=== PATIENT | male | born 1990 | race African-American/Black ===

== ENCOUNTER 2018-07-12 13:56 | Outpatient (REF) | payer BC, SELFPAY ==
[2018-07-16 11:55] LABS: HIV-1/2 Ag & Ab Screen Negative (NEGAT)
[2018-07-16 12:21] LABS: C-Peptide 2.2 ng/mL (1.1 - 4.4)
[2018-07-16 12:35] LABS: Syphilis Serology (RPR) Negative (Negative)
[2018-07-16 13:53] LABS: HSV Type 1 Ab, IgG Negative; HSV Type 2 Ab, IgG Negative
== END 2018-07-12 14:16 ==
LOC: LBN 13:56
PROVIDERS: PCP Internal Medicine; Visit Provider Family Medicine
DX: E11.9 Type 2 diabetes mellitus without complications (principal); Z11.59 Encounter for screening for other viral diseases; Z11.3 Encounter for screening for infections with a predominantly sexual mode of transmission; Z11.4 Encounter for screening for human immunodeficiency virus [HIV]
CPT/HCPCS: 87389; 84681; 86592; 86695; 86696

== ENCOUNTER 2018-11-21 14:16 | Outpatient (REF) | payer BC, SELFPAY ==
[2018-11-22 10:34] LABS: COMMENT (LAB VIEW ONLY) 126.87 mg/dL
== END 2018-11-21 14:36 ==
LOC: LBN 14:16
PROVIDERS: PCP Internal Medicine; Visit Provider Internal Medicine
DX: E11.9 Type 2 diabetes mellitus without complications (principal)
CPT/HCPCS: 82043; 82570

== ENCOUNTER 2019-02-02 04:47 | Emergency (ER) | payer BC, SELFPAY ==
[2019-02-02] VITALS (23 sets, daily range): BP systolic 126–166; BP diastolic 73–128; PULSE 71–104; RESP 16–18; TEMP 36.8; O2SAT 92–98
--- NOTE | 2019-02-02 05:03 | W.ED.GENAD ---
Discharge Plan Disposition Patient Disposition: HOME Condition: Good Discharge Details Chief Complaint: Abd Prob Clinical Impression: Calculus of left ureter Primary Care Provider: Balbina Matthews ED Provider: Annelise Jo Home Meds and New Rx's Prescriptions: New tamsulosin 0.4 mg capsule 0.4 mg PO DAILY Qty: 14 RF: 0 ibuprofen 600 mg tablet 600 mg PO QID PRN (Reason: pain) Qty: 14 RF: 0 Continued pen needle, diabetic [Easy Touch] 32 gauge x 5/32 needle 1 box Miscellaneous DAILY Qty: 100 RF: 12 lisinopril 5 mg tablet 5 mg PO DAILY Qty: 90 RF: 3 FreeStyle Lite Strips 1 EACH strip 1 ea Miscellaneous DAILY RF: 0 blood-glucose meter [FreeStyle Lite Meter] 1 EACH kit 1 ea SQ DAILY RF: 0 lancets [FreeStyle Lancets] 1 EACH misc 1 ea Miscellaneous DAILY Qty: 100 RF: 3 betamethasone valerate 15 GM cream 15 gm Topical BID PRNQty: 1 RF: 0 metformin [Glucophage] 1,000 mg tablet 1,000 mg PO Q12 H Qty: 180 RF: 1 Levemir FlexTouch U-100 Insuln 100 unit/mL (3 mL) insulin pen 40 unit subcut DAILY RF: 0 Changed acetaminophen 325 MG tablet 3 tab PO Q6H PRNQty: 0 RF: 0 ibuprofen 600 mg tablet 600 mg PO Q6H PRN (Reason: fever or pain) Qty: 50 RF: 0 Discharge Instructions Instructions: Renal Colic (ED), How to Strain Your Urine (ED) Additional Instructions: Alternate Tylenol with Motrin for pain control. Be sure to stay hydrated. Strain your urine so you will know when you have passed the stone. Flomax daily to try to help with passage of stone. Follow-up with primary care next week if continued symptoms. Return to ED if you develop fever, uncontrolled pain, persistent vomiting. Referrals: Ian Graham MD [ [facility] STAFF PHYSICIAN] - Balbina Matthews MD [Primary Care Provider] - Discharge Data Discharge Date/Time-TO BE ENTERED AT DEPARTURE: 02/02/19 09:12 Discharge Physician: Annelise Jo Medical Decision Making <Jurgen Meyers MD - Last Filed: 07/10/19 17:31> Patient with sudden onset of abdominal pain and associated urinary symptoms. Prior history of kidney stone according to him. No previous procedure to remove kidney stone. IV established and labs sent. Fluids, antiemetic, pain medication given. Stone study ordered. Labs are unremarkable. Magnesium a little low at 1.5. Replace orally. Patient has received 2 doses of morphine. He is much more comfortable. He still has not provided a urine sample. Stone study does show a 2 mm left mid to distal ureter stone with mild hydroureter. Patient does not wish to go home with narcotics. Will take Flomax though understands will not necessarily help significantly with smaller stones. He wants to use Motrin and Tylenol over the weekend and see how he does. We will plan on giving him a strainer at discharge. 07:42 -patient continues to be comfortable. He is on a second liter of LR. Still unable to produce urine sample. Assuming urine is negative for infection will be discharged home with prescription for Flomax. Per his request no narcotics and wants to try Motrin and Tylenol. Follow-up with his primary care next week if continued symptoms. Strain urine over the next few days to help determine passage of stone. Patient will be signed over to Dr. Jo, will need to follow-up on urine and evaluate for discharge. Medical Records Medical records reviewed: Yes I reviewed the patient's medical records. Lab Data Lab results reviewed: Yes I reviewed the patient's lab results. <Annelise Jo DO - Last Filed: 02/02/19 11:46> 0800 -- Please see Dr. Meyers's note for initial presentation, exam and plan. Patient is a 28-year-old male with a history of diabetes and kidney stones who presented with left lower quadrant abdominal pain that awoke him from sleep at 330 this morning. He admits to some nausea but denies any fever. Patient was given Toradol, morphine, Zofran and Flomax and admits to relief of pain. Patient was noted to have a 2 mm stone left distal ureter with mild hydronephrosis. Normal renal function and normal white blood cell count. Case endorsed to follow-up on urinalysis results to make sure patient can urinate and that there is no infection. 0850 -- UA notes blood but no infection. Pt feels good to go home. Hemodynamically stable. He was given a prescription for Flomax and requested prescription for ibuprofen. Patient placed on urology follow-up list. Patient declined any narcotics upon discharge to Dr. Meyers but complained of return of pain prior to discharge and was given 1 dose of oxycodone and requested a few tabs for home and 3 tabs were given. He is instructed to increase his fluids, use the strainer as directed, follow-up with urology next week and to return here with any worsening or new concerning symptoms of fever, urinary retention or any other concerns. Medical Records Medical records reviewed: Yes I reviewed the patient's medical records. Imaging Data Radiologic Study: Radiologist's impression: CT Abdomen and Pelvis Without Contrast EXAM DATE/TIME: 02/02/2019 5:03 AM CLINICAL HISTORY: 28 years old, male; Abdominal pain; Localized; Left lower quadrant (llq); Patient HX: Llq pain x few hours with nausea and vomiting, HX renal stones TECHNIQUE: Imaging protocol: Axial computed tomography images of the abdomen and pelvis without contrast. Coronal and sagittal reformatted images were created and reviewed. Radiation optimization: All CT scans at this facility use at least one of these dose optimization techniques: automated exposure control; mA and/or kV adjustment per patient size (includes targeted exams where dose is matched to clinical indication); or iterative reconstruction. COMPARISON: CT RENAL COLIC WO CONTRAST 12/30/2014 8:19 AM FINDINGS: Liver: No suspicious lesions. Gallbladder and bile ducts: No acute or concerning findings. Pancreas: Unremarkable. Spleen: No suspicious lesions. Adrenals: Unremarkable. No suspicious nodule. Kidneys and ureters: 2 mm stone mid left ureter causing mild hydronephrosis. Punctate nonobstructing right renal calculus. Stomach and bowel: Unremarkable. No inflammed or dilated loops. Appendix: No evidence of appendicitis. Intraperitoneal space: No free air. No significant fluid collection. Vasculature: Unremarkable. Lymph nodes: Unremarkable. Bladder: Unremarkable as visualized. Reproductive: Unremarkable as visualized. Bones/joints: No acute fracture. No dislocation. Soft tissues: Unremarkable. IMPRESSION: 2 mm stone mid to distal left ureter at the iliac vessels causing mild hydronephrosis. Lab Data Lab results reviewed: Yes I reviewed the patient's lab results. Laboratory Tests Range/Units 02/02/19 02/02/19 02/02/19 05:00 05:00 07:50 WBC (4.4-10.8) k/cumm 10.89 H RBC (4.50-6.00) m/cumm 5.54 Hgb (13.5-17.5) g/dL 15.0 Hct (40.0-50.0) % 46.2 MCV (80-95) fL 83.4 MCH (27.0-33.0) pg 27.1 MCHC (32.0-36.0) g/dL 32.5 RDW (11.8-14.1) % 12.7 Plt Count (130-400) x1000/uL 284 MPV (8.0-11.0) fL 10.3 Immature Gran % 0.0 Neutrophils % 45.0 Lymphocytes % 40.0 Atypical Lymphs % 8 Monocytes % 3.0 Eosinophils % 4.0 Basophils % 0.0 Absolute Neutrophils (1.2-6.7) k/cumm 4.90 Absolute Lymphocytes (1.2-3.4) k/cumm 5.23 H Absolute Monocytes (0.11-0.7) k/cumm 0.33 Absolute Eosinophils (0.0-0.7) k/cumm 0.44 Absolute Basophils (0.0-0.2) k/cumm 0.00 Differential Comment Manual differential RBC Morphology Normal Sodium (136-145) mmol/L 141 Potassium (3.5-5.1) mmol/L 3.6 Chloride (98-107) mmol/L 103 Carbon Dioxide (21.0-32.0) mmol/L 30.1 Anion Gap (3-11) mmol/L 7.9 BUN (7-18) mg/dL 17 Creatinine (0.70-1.30) mg/dL 0.89 Estimated GFR/1.73 m2 (mL/min/1.73m2) >= 60.00 Glucose (70-100) mg/dL 153 H Calcium (8.5-10.1) mg/dL 8.7 Magnesium (1.8-2.4) mg/dL 1.5 L Total Bilirubin (0.2-1.0) mg/dL 0.1 L AST (15-37) U/L 14 L ALT (12-78) U/L 36 Alkaline Phosphatase (46-116) U/L 129 H Total Protein (6.4-8.2) g/dL 7.5 Albumin (3.4-5.0) g/dL 3.6 Lipase (73-393) U/L 147 Urine Color (Yellow) Yellow Urine Clarity (Clear) Clear Urine pH (5-8) 8.5 H Ur Specific [place] (1.005-1.025) 1.020 Urine Protein (Negative) mg/dL 30 H Urine Ketones (Negative) mg/dL Trace H Urine Blood (Negative) Moderate H Urine Nitrite (Negative) Negative Urine Bilirubin (Negative) Small H Urine Urobilinogen (Up TO 0.2) EU/dL 1.0 H Ur Leukocyte Esterase (Negative) Negative Urine RBC (0-2) >50 H Urine WBC (0-5) HPF 0-2 Ur Epithelial Cells (Negative) HPF Rare Urine Crystals (Negative) HPF Negative Urine Bacteria (Negative) HPF Negative Urine Casts (Negative) LPF Negative Urine Mucus (Negative) Trace Urine Other (Negative) Few renal Ur Culture Indicated? No Urine Glucose (Negative) mg/dL 100 HPI <Jurgen Meyers MD - Last Filed: 02/06/19 17:31> General Mode of arrival: ambulatory. Date/Time Provider Initiated Documentation: 02/02/19 04:56. Limitations to Documentation: no limitations. Information obtained by: patient, RN notes reviewed and old records reviewed. HPI Narrative: Patient presents with onset of severe, colicky left-sided abdominal pain couple hours prior to arrival. He has also had nausea and vomiting. He reports prior episode of kidney stones which felt similar. He does have urgency and frequency. He denies back pain. He was fine when he went to bed tonight. Related Data Home Medications Medication Instructions Recorded Confirmed FreeStyle Lite Strips strip 11/16/12 11/21/18 blood-glucose meter [FreeStyle kit 11/16/12 11/21/18 Lite Meter] lancets [FreeStyle Lancets] #100 units 05/21/13 11/21/18 betamethasone valerate 15 gm TOPICAL BID PRN #1 tube 07/04/17 02/02/19 pen needle, diabetic 32 gauge x #100 each 07/12/18 11/21/18 metformin 1,000 mg tablet 1,000 mg PO Q12 H #180 tab-cap 10/09/18 02/02/19 lisinopril 5 mg tablet 5 mg PO DAILY #90 tab 11/21/18 02/02/19 Levemir FlexTouch U-100 Insuln 40 unit SUBCUT DAILY 02/02/19 02/02/19 acetaminophen 3 tab PO Q6H PRN #0 tab 02/02/19 02/02/19 ibuprofen 600 mg PO Q6H PRN #50 tab-cap 02/02/19 02/02/19 ibuprofen 600 mg PO QID PRN #14 tab 02/02/19 tamsulosin 0.4 mg PO DAILY #14 cap 02/02/19 Previous Rx's Medication Instructions Recorded pen needle, diabetic 32 gauge x #100 each 07/12/18 metformin 1,000 mg tablet 1,000 mg PO Q12 H #180 tab-cap 10/09/18 lisinopril 5 mg tablet 5 mg PO DAILY #90 tab 11/21/18 acetaminophen 3 tab PO Q6H PRN #0 tab 02/02/19 ibuprofen 600 mg PO Q6H PRN #50 tab-cap 02/02/19 ibuprofen 600 mg PO QID PRN #14 tab 02/02/19 tamsulosin 0.4 mg PO DAILY #14 cap 02/02/19 Allergies Allergy/AdvReac Type Severity Reaction Status Date / Time imiquimod Allergy Intermediate Topical Verified 02/02/19 04:54 Irritation tramadol AdvReac Unknown unknown Verified 02/02/19 04:54 DUST Allergy Mild CONGESTED Uncoded 02/02/19 04:54 [place] Allergy Unknown SOB Uncoded 02/02/19 04:54 General Stated Complaint: Abd Prob PIOTR: 3 Review of Systems <Jurgen Meyers MD - Last Filed: 02/06/19 17:31> Review of Systems 05/13 Review of Systems completed and is negative except as stated above in HPI (Systems reviewed: Const, Eyes, ENT, Resp, CV, GI, , MSK, Skin, Neuro) PFSH <Jurgen Meyers MD - Last Filed: 02/06/19 17:31> Medical History Diabetes mellitus (Chronic 07/31/06) Kidney stones (Inactive) Surgical History H/O circumcision (Inactive) [place] teeth extracted (Inactive) Family History Mother Diabetes Social History Smoking/Tobacco Use Status: Current-Occasional Tobacco: How many years used: 2 Alcohol Intake: current Alcohol Intake frequency: a few times a month Drug use: Never Substance use type: does not use Adopted: Yes Housing: apartment 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 Current gender identity: male What type of physical activity do you participate in: walking and bicycling Duration: 30-45 minutes/day Frequency: 5-6 times per week Seatbelt use: always Drive intox or ride w/intox dedicated regional driver: No Do you feel safe at home: Yes Do you feel safe in your relationship?: Yes Exam <Jurgen Meyers MD - Last Filed: 02/06/19 17:31> Narrative Exam Narrative: Vitals: Afebrile. Mild tachycardia. Elevated blood pressure. Const: WDWN male in significant discomfort from pain. HEENT: NC/AT. Normal facial exam. Eyes: Normal conjunctiva and sclera. Neck: Supple. Trachea midline. Lungs: Normal respiratory effort. Lungs are clear. Cor: RRR without murmur/gallop. Good radial pulses. GI: Soft. NT/ND. No guarding or rebound. Neuro: A+O x 3. CN grossly in tact. Good strength and no focal deficit. Ext: No C/C/E. No deformity or tenderness. Skin: Warm and dry without rash. Course <Jurgen Meyers MD - Last Filed: 02/06/19 17:31> Vital Signs Temperature 98.2 F 02/02/19 04:50 Pulse 104 H 02/02/19 04:50 Respiratory Rate 18 02/02/19 04:50 Blood Pressure 166/128 H 02/02/19 04:50 Pulse Oximetry 98 02/02/19 04:50 Temperature 98.2 F 02/02/19 04:50 Temperature Source Skin 02/02/19 04:50 Pulse 104 H 02/02/19 04:50 Respiratory Rate 18 02/02/19 04:50 Respiratory Effort Non-Labored 02/02/19 04:53 Blood Pressure 166/128 H 02/02/19 04:50 Blood Pressure Position Sitting 02/02/19 04:50 Pulse Oximetry 98 02/02/19 04:50 Oxygen Delivery Method Room Air 02/02/19 04:50 Oxygen Flow Rate 0 02/02/19 04:50 Pain Level 9 02/02/19 04:50 Sign Out <Jurgen Meyers MD - Last Filed: 02/06/19 17:31> Sign Out Data: Sign Out Comment: Signed over to follow up on urinalysis once patient able to provide sample. Last updated by Jurgen Meyers MD at 02/02/19 07:49
[2019-02-02] MEDS: Ketorolac 15 MG/ML VIAL IVP (05:07)
[2019-02-02] MEDS: Ondansetron 4 MG/2 ML VIAL IVP (05:08)
[2019-02-02] MEDS: Lactated Ringers 1,000 ML 1000 ML IV ×2 (05:09→06:38)
[2019-02-02 05:18] LABS: Abs Immature Grans 0.03 k/cumm (0.0-0.09); HCT 46.2 % (40.0-50.0); Mean Corp. HGB Concentration 32.5 g/dL (32.0-36.0); Mean Corpuscular Hemoglobin 27.1 pg (27.0-33.0); Mean Corpuscular Volume 83.4 fL (80-95); Mean Platelet Volume 10.3 fL (8.0-11.0); Platelet Count 284 x1000/uL (130-400); RBC 5.54 m/cumm (4.50-6.00); RBC Distribution Width 12.7 % (11.8-14.1); White Blood Cell Count 10.89 k/cumm (4.4-10.8)
--- NOTE | 2019-02-02 05:19 | NUR.NOTE ---
Nursing Note: patient was sitting on the edge of the bed, when I was about to start an IV he flopped across the stretcher striking his head on the side rail of the stretcher. patient was then placed in a supine position on the stretcher. There was no apparent loss of consciousness, no apparent injury to his head. patient responded to verbal questioning but patient did complain of head hurting, notified
--- NOTE | 2019-02-02 05:25 | DI.CT_ITS ---
SYMPTOM/DIAGNOSIS; SUDDEN ONSET LLQ ABDOMINAL PAIN ABDOMINAL AND PELVIC CT: 02/02/19 CT examination of the abdomen and pelvis was performed without contrast administration. Images obtained through the lung bases were unremarkable. Visualized portions of the liver, spleen and pancreas were unremarkable. Gallbladder and bile ducts were CT normal. Abdominal aorta is of normal diameter. No significant abdominal wall hernia is seen. No abdominal or pelvic adenopathy seen. Appendix appears normal. No evidence of diverticulitis or bowel obstruction. There are a couple tiny nonobstructing right renal calculi. No right hydronephrosis or hydroureter. On the left there is a tiny nonobstructing renal calculus. There is an apparent 2-3 mm in diameter stone of the left ureter causing mild hydronephrosis. This lies at the level of the S-I joints. No additional ureteral calculus identified on the left. CONCLUSION: Findings consistent with obstructing 2-3 mm in diameter mid to distal left ureteral stone as described above.
[2019-02-02 05:27] LABS: ALT 36 U/L (12-78); AST 14 U/L (15-37); Albumin 3.6 g/dL (3.4-5.0); Alkaline Phosphatase 129 U/L (46-116); Anion Gap 7.9 mmol/L (3-11); BUN 17 mg/dL (7-18); Bilirubin, Total 0.1 mg/dL (0.2-1.0); CO2 30.1 mmol/L (21.0-32.0); CREATININE 0.89 mg/dL (0.70-1.30); Calcium 8.7 mg/dL (8.5-10.1); Chloride 103 mmol/L (98-107); Glucose 153 mg/dL (70-100); Lipase 147 U/L (73-393); Magnesium 1.5 mg/dL (1.8-2.4); Potassium 3.6 mmol/L (3.5-5.1); Sodium 141 mmol/L (136-145); Total Protein 7.5 g/dL (6.4-8.2)
--- NOTE | 2019-02-02 05:34 | DI.VRAD_ITS ---
EXAM: CT Abdomen and Pelvis Without Contrast EXAM DATE/TIME: 02/02/2019 5:03 AM CLINICAL HISTORY: 28 years old, male; Abdominal pain; Localized; Left lower quadrant (llq); Patient HX: Llq pain x few hours with nausea and vomiting, HX renal stones TECHNIQUE: Imaging protocol: Axial computed tomography images of the abdomen and pelvis without contrast. Coronal and sagittal reformatted images were created and reviewed. Radiation optimization: All CT scans at this facility use at least one of these dose optimization techniques: automated exposure control; mA and/or kV adjustment per patient size (includes targeted exams where dose is matched to clinical indication); or iterative reconstruction. COMPARISON: CT RENAL COLIC WO CONTRAST 12/30/2014 8:19 AM FINDINGS: Liver: No suspicious lesions. Gallbladder and bile ducts: No acute or concerning findings. Pancreas: Unremarkable. Spleen: No suspicious lesions. Adrenals: Unremarkable. No suspicious nodule. Kidneys and ureters: 2 mm stone mid left ureter causing mild hydronephrosis. Punctate nonobstructing right renal calculus. Stomach and bowel: Unremarkable. No inflammed or dilated loops. Appendix: No evidence of appendicitis. Intraperitoneal space: No free air. No significant fluid collection. Vasculature: Unremarkable. Lymph nodes: Unremarkable. Bladder: Unremarkable as visualized. Reproductive: Unremarkable as visualized. Bones/joints: No acute fracture. No dislocation. Soft tissues: Unremarkable. IMPRESSION: 2 mm stone mid to distal left ureter at the iliac vessels causing mild hydronephrosis. Dictated and Authenticated by: Domingo Koo MD. Ordering:ROSE Seaman MD
[2019-02-02] MEDS: MORPHine 10 MG/ML VIAL 4 MG IVP (05:35)
[2019-02-02 05:54] LABS: Absolute Eosinophil Count 0.44 k/cumm (0.0-0.7); Absolute Lymphocyte Count 5.23 k/cumm (1.2-3.4); Absolute Monocyte Count 0.33 k/cumm (0.11-0.7); Atypical Lymphocytes % 8
[2019-02-02 05:55] LABS: Diff Comment Manual Differential; RBC Morphology Normal
[2019-02-02] MEDS: Tamsulosin 0.4 MG CAPCR PO (06:05)
[2019-02-02] MEDS: Magnesium Oxide 400 MG TAB 800 MG PO (06:05)
--- NOTE | 2019-02-02 07:01 | NUR.NOTE ---
Nursing Note: pt resting in bed, no signs of distress. pt sleeping, slow and even respirations noted. pt easily awoken by verbal stimuli. Pt encouraged to give urine sample. pt states that he will try.
--- NOTE | 2019-02-02 07:09 | NUR.NOTE ---
Nursing Note: pt states that he is still unable to void. Will continue to encourage.
--- NOTE | 2019-02-02 07:54 | NUR.NOTE ---
Nursing Note: pt ambulated to and from bathroom without difficulty. states that he was unable to give urine sample. Pt provided a cup of coffee.
[2019-02-02 08:12] LABS: Bilirubin Small (Negative); Blood Moderate (Negative); Clarity Clear (Clear); Glucose 100 mg/dL (Negative); Ketones Trace mg/dL (Negative); Leukocyte Esterase Negative (Negative); Nitrite Negative (Negative); pH 8.5 (5-8)
[2019-02-02 08:49] LABS: Bacteria Negative HPF (Negative); Casts Negative LPF (Negative); Crystals Negative HPF (Negative); Epithelial Cells Rare HPF (Negative); Mucus Trace (Negative); Other Cells Few Renal (Negative); RBC >50 (0-2); WBC 0-2 HPF (0-5)
[2019-02-02 08:50] LABS: C & S Indicated? No
[2019-02-02] MEDS: oxyCODONE 5 MG TAB PO (09:02)
[2019-02-02] MEDS: oxyCODONE 5 MG TAB 15 MG PO (09:06)
--- NOTE | 2019-02-04 19:12 | NUR.NOTE ---
Nursing Note: Referral was faxed to Urology for follow up today. Nahed Ruiz.
== END 2019-02-02 09:12 | disposition home or self-care (01) ==
PROVIDERS: Emergency Medicine; Emergency Provider Physician Assistant; PCP Internal Medicine
DX: N13.2 Hydronephrosis with renal and ureteral calculous obstruction (principal)
CPT/HCPCS: 36415; 80053; 83690; 96361; 96374; 96375; 96376; 99284; 74176; 81003; 81015; 83735; 85025; J1885; J2270

== ENCOUNTER 2019-02-11 09:41 | Emergency (ER) | payer BC, SELFPAY ==
[2019-02-11 09:44] VITALS: BP 152/93; PULSE 82; RESP 12; TEMP 36.5; O2SAT 98
--- NOTE | 2019-02-11 10:14 | ED.GENADUL_ITS ---
Discharge Plan Disposition Patient Disposition: HOME Condition: Good Discharge Details Chief Complaint: Laceration Clinical Impression: Laceration Primary Care Provider: Balbina Matthews ED Provider: Wilver Cortes Home Meds and New Rx's Prescriptions: No Action (DME) pen needle, diabetic [Easy Touch] 32 gauge x 5/32 needle 1 box Miscellaneous DAILY Qty: 100 RF: 12 lisinopril 5 mg tablet 5 mg PO DAILY Qty: 90 RF: 3 (DME) FreeStyle Lite Strips 1 EACH strip 1 ea Miscellaneous DAILY RF: 0 (DME) blood-glucose meter [FreeStyle Lite Meter] 1 EACH kit 1 ea SQ DAILY RF: 0 (DME) lancets [FreeStyle Lancets] 1 EACH misc 1 ea Miscellaneous DAILY Qty: 100 RF: 3 metformin [Glucophage] 1,000 mg tablet 1,000 mg PO Q12 H Qty: 180 RF: 1 Levemir FlexTouch U-100 Insuln 100 unit/mL (3 mL) insulin pen 40 unit subcut DAILY RF: 0 acetaminophen 325 MG tablet 3 tab PO Q6H PRNQty: 0 RF: 0 ibuprofen 600 mg tablet 600 mg PO QID PRN (Reason: pain) Qty: 14 RF: 0 Discharge Instructions Instructions: Care For Your Stitches (ED), Laceration (ED) Additional Instructions: Please return in the next 7 to 10 days to have your laceration reassessed, and your sutures potentially removed. Please leave the dressing on for 24 hours, then you may remove and begin cleaning the wound at least twice a day with soap and water. Continue to apply antibiotic ointment. Do not directly soak the area. Watch for any signs of infection and return if any increasing redness, swelling, pain, drainage. If you notice any worsening of your symptoms, or any new symptoms such as vomiting, diarrhea, fever, chills, shortness of breath, chest pain, numbness, weakness, or fainting , please return immediately to the emergency department for reevaluation. Please follow up with your primary care provider as soon as possible for reassessment and reevaluation. As always, it w as a pleasure participating in your medical care today. Referrals: Balbina Matthews MD [Primary Care Provider] - Discharge Data Discharge Date/Time-TO BE ENTERED AT DEPARTURE: 02/11/19 10:29 Medical Decision Making This is a pleasant 28-year-old -[place] male who is [id number] who presents with a left hand laceration over his left thenar eminence, 2 cm laceration over the lateral aspect of the left thenar eminence, no deep involvement, 3 simple interrupted sutures using 4-0 Ethilon. Tetanus has been updated here. Patient tolerated procedure well with it 3 supplies directed sutures using vigorous irrigation cleansing before hand. Patient does not want any x-ray imaging, and demonstrates no clinical signs of significant fracture requiring splinting. Discussed red flags which to return. The wound was dressed in proper fashion. I have extensively reviewed the treatment plan and discharge instructions with the patient and their family. I have addressed all patient concerns at this time. The patient and family was made aware of what symptoms to monitor for that would warrant a return to the emergency department. Discussed the plan with the patient and family, they demonstrate verbal understanding and agreement with our assessment and plan at this time. HPI General Date/Time Provider Initiated Documentation: 02/11/19 09:47 . HPI Narrative: This is a pleasant 28-year-old -[place] male who presents for laceration over his left thumb over the thenar eminence. He was putting up a TP when a hatchet came and struck the edge of his thumb causing a laceration. Patient is unsure if his tetanus is up-to-date. He is right-hand dominant. He denies any associated numbness or tingling. He denies any weakness. Aside for the laceration itself he denies any other pain. Pain is made worse with movement. Bleeding is controlled with pressure. No other complaints at this time. Related Data Home Medications Medication Instructions Recorded Confirmed FreeStyle Lite Strips strip 11/16/12 02/11/19 blood-glucose meter [FreeStyle kit 11/16/12 02/11/19 Lite Meter] lancets [FreeStyle Lancets] #100 units 05/21/13 02/11/19 pen needle, diabetic 32 gauge x #100 each 07/12/18 02/11/19 metformin 1,000 mg tablet 1,000 mg PO Q12 H #180 tab-cap 10/09/18 02/11/19 lisinopril 5 mg tablet 5 mg PO DAILY #90 tab 11/21/18 02/11/19 Levemir FlexTouch U-100 Insuln 40 unit SUBCUT DAILY 02/02/19 02/11/19 acetaminophen 3 tab PO Q6H PRN #0 tab 02/02/19 02/11/19 ibuprofen 600 mg PO QID PRN #14 tab 02/02/19 02/11/19 Previous Rx's Medication Instructions Recorded pen needle, diabetic 32 gauge x #100 each 07/12/18 metformin 1,000 mg tablet 1,000 mg PO Q12 H #180 tab-cap 10/09/18 lisinopril 5 mg tablet 5 mg PO DAILY #90 tab 11/21/18 acetaminophen 3 tab PO Q6H PRN #0 tab 02/02/19 ibuprofen 600 mg PO QID PRN #14 tab 02/02/19 Allergies Allergy/AdvReac Type Severity Reaction Status Date / Time imiquimod Allergy Intermediate Topical Verified 02/11/19 09:46 Irritation tramadol AdvReac Unknown unknown Verified 02/11/19 09:46 DUST Allergy Mild CONGESTED Uncoded 02/11/19 09:46 LOBLOLLY [place]REE Allergy Unknown SOB Uncoded 02/11/19 09:46 General Stated Complaint: Laceration PIOTR: 3 Review of Systems Review of Systems All systems reviewed & are unremarkable except as noted in HPI and below PFSH Social History Smoking/Tobacco Use Status: Current-Occasional Tobacco: How many years used: 2 Alcohol Intake: current Alcohol Intake frequency: a few times a month Drug use: Never Substance use type: does not use Adopted: Yes Housing: apartment 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 3.ENT: Atraumatic external nose and ears. Moist MM. Neck: Symmetric, trachea midline, No thyromegaly. 4.CVS: +S1/S2, No murmurs or gallops. Peripheral pulses 2+ and equal in all extremities. Brisk capillary refill in all extremities. 5.RESP: Unlabored respiratory effort. Clear to auscultation bilaterally. No wheezes rales or rhonchi 6.GI: Soft, Nontender/Nondistended, No hepatosplenomegaly. No guarding or rebound. 7.MSK: Normocephalic, Extremities w/o deformity or ttp No cyanosis or clubbing, Normal movement of all extremities. Symmetrically palpable radial and ulnar pulses. Capillary refill less than 2 seconds to all digits. Intact sensation to light touch of the radial, median and ulnar nerves demonstrated by testing in the dorsal web space of the thumb, the distal palmar aspect of the index finger, and the lateral surface of the fifth finger. 2 point discrimination intact to 5mm (up to 6mm can be normal in digits 3-5) of discrimination in the affected digit. Intact motor function of the radial, median and ulnar nerves demonstrated by strength of extension of the isolated distal joint of the index finger, hand timber bucker, and spreading of the 2nd through 5th digits. Intact recurrent median nerve as demonstrated by ability to move thumb fully through opposition, abduction and flexion. No snuffbox tenderness. 8.Skin: Warm, Dry. 1.5 to 2 cm laceration over the thenar eminence on his left hand. No evidence of tendon involvement. No evidence of muscle tendon or bone exposure. Bleeding is controlled with pressure. Laceration is linear. 9.Neuro: target setter II-XII grossly intact. Sensation grossly intact, no focal neurologic deficits. 10.Psych: (AAO) x3. Appropriate mood and affect Course Vital Signs Temperature 36.5 C 02/11/19 09:44 Pulse 82 02/11/19 09:44 Respiratory Rate 12 02/11/19 09:44 Blood Pressure 152/93 H 02/11/19 09:44 Pulse Oximetry 98 02/11/19 09:44 Temperature 36.5 C 02/11/19 09:44 Temperature Source Temporal Artery Scan 02/11/19 09:44 Pulse 82 02/11/19 09:44 Respiratory Rate 12 02/11/19 09:44 Respiratory Effort Non-Labored 02/11/19 09:45 Blood Pressure 152/93 H 02/11/19 09:44 Blood Pressure Position Sitting 02/11/19 09:44 Pulse Oximetry 98 02/11/19 09:44 Oxygen Delivery Method Room Air 02/11/19 09:44 Oxygen Flow Rate 0 02/11/19 09:44 Pain Level 4 02/11/19 09:44 Procedures Laceration Laceration 1: Site: hand Side (If applicable): left Size (cm): 2 Description: linear Depth: simple, single layer Local Anesthetic: Lidocaine 2% and Bupivicaine 0.5% Amount of anesthesia used (mL): 5 Pre-repair: irrigated extensively and deep structures intact Skin layer closed with: nylon Size (cm): 4-0 Number of sutures: 3 Technique: simple, interrupted
--- NOTE | 2019-02-11 10:20 | NUR.NOTE ---
Nursing Note: wound to left hand cleaned and dressed prior to DC.
== END 2019-02-11 10:29 | disposition home or self-care (01) ==
PROVIDERS: Emergency Provider Student in an Organized Health Care Education/Training Program; PCP Internal Medicine
DX: S61.412A Laceration without foreign body of left hand, initial encounter (principal); W27.0XXA Contact with workbench tool, initial encounter; E11.9 Type 2 diabetes mellitus without complications; Z79.84 Long term (current) use of oral hypoglycemic drugs
CPT/HCPCS: 12001; 90471

== ENCOUNTER 2019-02-21 17:42 | Emergency (ER) | payer BC, SELFPAY ==
[2019-02-21 17:51] VITALS: BP 137/79; PULSE 89; RESP 16; TEMP 36.5; O2SAT 100
--- NOTE | 2019-02-21 18:00 | ED.GENADUL_ITS ---
Discharge Plan Disposition Patient Disposition: HOME Condition: Improving Discharge Details Chief Complaint: SutureRem Clinical Impression: Visit for suture removal Primary Care Provider: Balbina Matthews ED Provider: Zarina Aguirre Home Meds and New Rx's Prescriptions: Continued (DME) pen needle, diabetic [Easy Touch] 32 gauge x 5/32 needle 1 box Miscellaneous DAILY Qty: 100 RF: 12 lisinopril 5 mg tablet 5 mg PO DAILY Qty: 90 RF: 3 (DME) FreeStyle Lite Strips 1 EACH strip 1 ea Miscellaneous DAILY RF: 0 (DME) blood-glucose meter [FreeStyle Lite Meter] 1 EACH kit 1 ea SQ DAILY RF: 0 (DME) lancets [FreeStyle Lancets] 1 EACH misc 1 ea Miscellaneous DAILY Qty: 100 RF: 3 metformin [Glucophage] 1,000 mg tablet 1,000 mg PO Q12 H Qty: 180 RF: 1 Levemir FlexTouch U-100 Insuln 100 unit/mL (3 mL) insulin pen 40 unit subcut DAILY RF: 0 acetaminophen 325 MG tablet 3 tab PO Q6H PRNQty: 0 RF: 0 ibuprofen 600 mg tablet 600 mg PO QID PRN (Reason: pain) Qty: 14 RF: 0 Discharge Instructions Instructions: Laceration (ED) Additional Instructions: Please continue to monitor wounds for signs of infection including redness, warmth, drainage, increased pain, fever/chills. If you develop fever or the new/worsening symptoms please seek care urgently once again. Please follow-up with primary care in the next 1 to 2 weeks for reevaluation of your altered sensation. Please leave Steri-Strips on as long as possible and allow this to come off naturally. Stand Alone Forms: Work Release Referrals: Balbina Matthews MD [Primary Care Provider] - Discharge Data Discharge Date/Time-TO BE ENTERED AT DEPARTURE: 02/21/19 18:27 Medical Decision Making Patient is a 29-year-old [id number] male presenting today with chief complaint of suture removal. Patient was seen here 10 days ago at which time #3 simple interrupted sutures were placed into the left ulnar eminence. He reports that he continues to have some intermittent swelling and is improved today. Has not noted any drainage, erythema, warmth. Has had minimal pain. Has been following instructions. Patient continues to endorse some numbness on the dorsal and radial side of the thumb. Two-point discrimination is intact. Wound appears to be healing well. Plan to have nursing staff remove stitches and reinforced with Steri-Strips. We discussed signs symptoms of infection when to seek care urgently once again. Advise follow-up with primary care in 1 to 2 weeks for reevaluation of his persistent tingling. At the request of the patient, work note was provided outlining his recent visits. All his questions and concerns were addressed and he is in agreement this plan. HPI General Mode of arrival: ambulatory . Date/Time Provider Initiated Documentation: 02/21/19 17:59 . Limitations to Documentation: no limitations . Information obtained by: patient and RN notes reviewed . History of Present Illness 29 year old M presents to the emergency department with the chief compl aint of suture removal, described as mild, Quality is described as aching, and is localized to the left and upper extremity. Patient reports no radiation. Patient started experiencing this day(s) (10) and it has been constant. No relieving factors improve symptom(s), No exacerbating factors reported . Patient notes no other symptoms.. Patient did receive the following treatments prior to arrival, other (sutures) Related Data Home Medications Medication Instructions Recorded Confirmed FreeStyle Lite Strips strip 11/16/12 02/21/19 blood-glucose meter [FreeStyle kit 11/16/12 02/21/19 Lite Meter] lancets [FreeStyle Lancets] #100 units 05/21/13 02/21/19 pen needle, diabetic 32 gauge x #100 each 07/12/18 02/21/19 metformin 1,000 mg tablet 1,000 mg PO Q12 H #180 tab-cap 10/09/18 02/21/19 lisinopril 5 mg tablet 5 mg PO DAILY #90 tab 11/21/18 02/21/19 Levemir FlexTouch U-100 Insuln 40 unit SUBCUT DAILY 02/02/19 02/21/19 acetaminophen 3 tab PO Q6H PRN #0 tab 02/02/19 02/21/19 ibuprofen 600 mg PO QID PRN #14 tab 02/02/19 02/21/19 Previous Rx's Medication Instructions Recorded pen needle, diabetic 32 gauge x #100 each 07/12/18 metformin 1,000 mg tablet 1,000 mg PO Q12 H #180 tab-cap 10/09/18 lisinopril 5 mg tablet 5 mg PO DAILY #90 tab 11/21/18 acetaminophen 3 tab PO Q6H PRN #0 tab 02/02/19 ibuprofen 600 mg PO QID PRN #14 tab 02/02/19 Allergies Allergy/AdvReac Type Severity Reaction Status Date / Time imiquimod Allergy Intermediate Topical Verified 02/11/19 09:46 Irritation tramadol AdvReac Unknown unknown Verified 02/11/19 09:46 DUST Allergy Mild CONGESTED Uncoded 02/11/19 09:46 LOBLOLLY [place] Allergy Unknown SOB Uncoded 02/11/19 09:46 General Stated Complaint: SutureRem PIOTR: 5 Review of Systems Constitutional Reports as per HPI, Denies chills, Denies fever(s) and Denies weakness Musculoskeletal Reports as per HPI and Denies tingling Integumentary/Breasts Reports as per HPI Neurologic Denies sensory deficit, Denies tingling and Denies weakness [facility] Medical History Diabetes mellitus (Chronic 07/31/06) Kidney stones (Inactive) Surgical History H/O circumcision (Inactive) [place] teeth extracted (Inactive) Social History Smoking/Tobacco Use Status: Current-Occasional Tobacco Type: cigarettes Tobacco: How many years used: 2 Alcohol Intake: current Alcohol Intake frequency: a few times a month Drug use: Never Substance use type: does not use Adopted: Yes Housing: apartment 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[employer], Day Care Current gender identity: male What type of physical activity do you participate in: walking and bicycling Duration: 30-45 minutes/day Frequency: 5-6 times per week Seatbelt use: always Drive intox or ride w/intox marine engine driver: No Do you feel safe at home: Yes Do you feel safe in your relationship?: Yes Exam Const General: cooperative, healthy appearing, comfortable, no acute distress and well developed Nutritional Appearance: average body habitus and well nourished Orientation: alert and awake Resp Effort & Inspection: normal respiratory effort, able to speak in complete sentences and no respiratory distress Cardio Rate: regular rate Rhythm: regular rhythm Skin Trauma: laceration (to left thenar emmanance, appears to be well healed) Neuro General: alert and awake Cognition: normal cognition Speech: speech normal Gait: normal gait Motor: muscle tone normal throughout Psych Appearance: grossly normal and well kempt Mental Status: mental status grossly normal Speech and Movement: speech and movement normal Course Vital Signs Temperature 36.5 C 02/21/19 17:51 Pulse 89 02/21/19 17:51 Respiratory Rate 16 02/21/19 17:51 Blood Pressure 137/79 02/21/19 17:51 Pulse Oximetry 100 02/21/19 17:51 Temperature 36.5 C 02/21/19 17:51 Temperature Source Skin 02/21/19 17:51 Pulse 89 02/21/19 17:51 Respiratory Rate 16 02/21/19 17:51 Respiratory Effort Non-Labored 02/21/19 17:54 Blood Pressure 137/79 02/21/19 17:51 Blood Pressure Position Sitting 02/21/19 17:51 Pulse Oximetry 100 02/21/19 17:51 Oxygen Delivery Method Room Air 02/21/19 17:51 Oxygen Flow Rate 0 02/21/19 17:51
== END 2019-02-21 18:27 | disposition home or self-care (01) ==
PROVIDERS: Emergency Provider Physician Assistant; PCP Internal Medicine
DX: S61.012D Laceration without foreign body of left thumb without damage to nail, subsequent encounter (principal); W45.8XXD Other foreign body or object entering through skin, subsequent encounter; E11.9 Type 2 diabetes mellitus without complications; Z48.02 Encounter for removal of sutures

== ENCOUNTER 2020-07-02 14:09 | Emergency (ER) | payer BC, SELFPAY ==
[2020-07-02 14:14] VITALS: BP 150/76; PULSE 93; RESP 16; TEMP 36.4; O2SAT 99
--- NOTE | 2020-07-02 14:15 | DI.CT_ITS ---
EXAM: CT RENAL COLIC WO CLINICAL HISTORY: Right flank pain. TECHNIQUE: Imaging Protocol: Axial computed tomography images with coronal and sagittal reformatted images were created and reviewed. COMPARISON: CT CT renal colic wo from 02/02/2019 FINDINGS: ABDOMEN: Visualize lung Bases: Clear. No pleural effusions. In the abdomen there is no ascites. There are no obvious focal hepatic findings realize limitation o f this noninfused study. There is no obvious gallbladder pathology. CBD is not dilated. Pancreas a ppears unremarkable. The spleen is not enlarged. No significant adrenal masses. Left kidney appear s unremarkable. Tiny calculus is noted in the right kidney. There is a small calculus in the right side of the urinary bladder which measures 4 x 3 millimeters, consistent with intramural ureterovesic al junction calculus at this level. No other calculi seen in the urinary bladder and the bladder is not distended. There is mild hydronephrosis above this level. No calculi on the opposite-left side. Abdominal aorta is not enlarged. PELVIS: Prostate gland is not enlarged. Seminal vesicles unremarkable. No evidence of appendicitis nor dive rticulitis. No free fluid in the pelvis. Osseous: No significant osseous lesions. IMPRESSION: There is a 4 millimeter calculus at the intramural aspect of the a right ureterovesical junction. Mi ld dilatation of the right collecting system above this level.Small remaining calculus seen in the ri ght kidney. Left kidney appears unremarkable. Urinary bladder is not distended. Report called to emergency room provider RADIATION DOSE DELIVERED: 823.57mGy.cm Total DLP DATA REPOSITORY: All CT scans at this facility are submitted to the National Radiology Data Registry (NRDR) Dose Index Registry (DIR) with the [employer] (ACR). RADIATION OPTIMIZATION: All CT scans at this facility use at least one of these dose optimization te chniques: automated exposure control; mA and/or kV adjustment per patient size (includes targeted exa ms where dose is matched to clinical indication); or iterative reconstruction.
--- NOTE | 2020-07-02 14:19 | W.ED.GENAD ---
Discharge Plan Disposition Patient Disposition: HOME Condition: Stable Discharge Details Clinical Impression: Right kidney stone Primary Care Provider: Balbina Matthews ED Provider: Raya Serrano Home Meds and New Rx's Prescriptions: New tamsulosin 0.4 mg capsule 0.4 mg PO QHS 7 Days Qty: 7 RF: 0 hydrocodone-acetaminophen [Vicodin HP] 10-300 mg tablet 1 tab PO Q6H PRN (Reason: pain) 3 Days Qty: 7 RF: 0 No Action (DME) pen needle, diabetic [Easy Touch] 32 gauge x 5/32 needle 1 box Miscellaneous DAILY Qty: 200 RF: 3 (DME) blood-glucose meter [Blood Glucose Monitoring] Kit See Rx Instructions .ROUTE .MEDSUPPLY Qty: 1 RF: 0 (DME) lancets [FreeStyle Lancets] 28 gauge misc 1 ea Miscellaneous DAILY Qty: 300 RF: 3 Levemir FlexTouch U-100 Insuln 100 unit/mL (3 mL) insulin pen See Rx Instructions subcut .COMPLEX Qty: 15 RF: 3 ammonium lactate 12 % lotion 1 applic TP QD-BID PRN (Reason: dry skin) Qty: 225 RF: 3 pseudoephedrine HCl [Nasal Decongestant (pseudoeph)] 120 mg tablet extended release 120 mg PO DAILY Qty: 10 RF: 0 lisinopril 10 mg tablet 10 mg PO DAILY Qty: 90 RF: 3 trazodone 300 mg tablet 300 mg PO QHS Qty: 90 RF: 3 nystatin 100,000 unit/gram powder 1 applic TP BID Qty: 60 RF: 5 bupropion HCl 150 mg tablet extended release 24 hr 150 mg PO QAM Qty: 90 RF: 3 metformin [Glucophage] 1,000 mg tablet 1,000 mg PO Q12 H Qty: 180 RF: 3 Trulicity 1.5 mg/0.5 mL pen injector 1.5 mg SC QWEEK Qty: 12 RF: 3 glimepiride [Amaryl] 4 mg tablet 8 mg PO QAM Qty: 180 RF: 3 acetaminophen 325 MG tablet 3 tab PO Q6H PRNQty: 0 RF: 0 ibuprofen 600 mg tablet 600 mg PO QID PRN (Reason: pain) Qty: 14 RF: 0 Discharge Instructions Instructions: Kidney Stones (ED) Additional Instructions: Follow up with primary care provider in 3-5 days. Return to ED sooner if any worsening or concerns. Increase oral fluids. Please take Tylenol or Ibuprofen with food every 4-6 hours as needed for pain and swelling. Do not take any additional Tylenol with the Vicodin. Strain all urine, follow-up with urology in 1 to 2 weeks. Return to the ED or be seen sooner if you are having continued problems urinating, fever, vomiting. Stand Alone Forms: Work Release Referrals: Ian Graham MD [ [facility] STAFF PHYSICIAN] - Balbina Matthews MD [Primary Care Provider] - Discharge Data Discharge Date/Time-TO BE ENTERED AT DEPARTURE: 07/02/20 16:06 Medical Decision Making 30-year-old male presents to the ER with chief complaint of right flank pain which began approximately 45 minutes prior to arrival. Associated with nausea vomiting. She denies fever chills or abdominal pain. He states he does have a history of kidney stones and this feels similar. He reports hesitancy of urine. She has a past medical history of diabetes, anxiety, hypertension Work-up ordered including CBC, CMP, urinalysis, CT without contrast to rule out kidney stones. IV, normal saline, 30 mg of Toradol and 4 mg of Zofran ordered. FINDINGS: ABDOMEN: Visualize lung Bases: Clear. No pleural effusions. In the abdomen there is no ascites. There are no obvious focal hepatic findings realize limitation of this noninfused study. There is no obvious gallbladder pathology. CBD is not dilated. Pancreas appears unremarkable. The spleen is not enlarged. No significant adrenal masses. Left kidney appears unremarkable. Tiny calculus is noted in the right kidney. There is a small calculus in the right side of the urinary bladder which measures 4 x 3 millimeters, consistent with intramural ureterovesical junction calculus at this level. No other calculi seen in the urinary bladder and the bladder is not distended. There is mild hydronephrosis above this level. No calculi on the opposite-left side. Abdominal aorta is not enlarged. PELVIS: Prostate gland is not enlarged. Seminal vesicles unremarkable. No evidence of appendicitis nor diverticulitis. No free fluid in the pelvis. Osseous: No significant osseous lesions. IMPRESSION: There is a 4 millimeter calculus at the intramural aspect of the a right ureterovesical junction. Mild dilatation of the right collecting system above this level.Small remaining calculus seen in the right kidney. Left kidney appears unremarkable. Urinary bladder is not distended. Discussed CT results with patient who verbalized understanding. Patient to be given a urine strainer and instructed to follow-up with urology. Prescription given for tamsulosin and hydrocodone Tylenol x7 tablet as needed severe pain. Discussed strict return instructions, verbalized understanding. Patient remained hemodynamically stable throughout stay. This text was generated using [employer] system, please disregard any oddities of phrase or misspellings. HPI General Mode of arrival: ambulatory. Date/Time Provider Initiated Documentation: 07/02/20 14:14. Limitations to Documentation: no limitations. Information obtained by: patient. HPI Narrative: 30-year-old male presents to the ER with chief complaint of right flank pain which began approximately 45 minutes prior to arrival. Associated with nausea vomiting. She denies fever chills or abdominal pain. He states he does have a history of kidney stones and this feels similar. He reports hesitancy of urine. She has a past medical history of diabetes, anxiety, hypertension. Related Data Home Medications Medication Instructions Recorded Confirmed acetaminophen 3 tab PO Q6H PRN #0 tab 02/02/19 07/02/20 ibuprofen 600 mg PO QID PRN #14 tab 02/02/19 07/02/20 lancets 28 gauge #300 units 03/13/19 03/18/20 blood-glucose meter #1 each 09/17/19 03/18/20 pen needle, diabetic 32 gauge x #200 each 09/17/19 03/18/20 ammonium lactate 12 % lotion 1 applic TP QD-BID PRN #225 gm 09/27/19 07/02/20 insulin detemir U-100 100 unit/mL See Rx Instructions SUBCUT 09/27/19 07/02/20 (3 mL) subcutaneous pen .COMPLEX #15 syringe metformin 1,000 mg tablet 1,000 mg PO Q12 H #180 tab-cap 10/02/19 07/02/20 dulaglutide 1.5 mg/0.5 mL 1.5 mg SC QWEEK #12 syringe 10/16/19 07/02/20 subcutaneous pen injector pseudoephedrine HCl 120 mg 120 mg PO DAILY #10 tab 01/29/20 07/02/20 tablet,extended release lisinopril 10 mg tablet 10 mg PO DAILY #90 tab 03/18/20 07/02/20 nystatin 100,000 unit/gram topical 1 applic TP BID #60 gm 03/18/20 07/02/20 powder trazodone 300 mg tablet 300 mg PO QHS #90 tab 03/18/20 07/02/20 bupropion HCl 150 mg 24 hr tablet, 150 mg PO QAM #90 tab 04/29/20 07/02/20 extended release glimepiride 4 mg tablet 8 mg PO QAM #180 tab 06/26/20 07/02/20 hydrocodone-acetaminophen [Vicodin 1 tab PO Q6H PRN 3 Days #7 tab 07/02/20 HP] tamsulosin 0.4 mg PO QHS 7 Days #7 cap 07/02/20 Previous Rx's Medication Instructions Recorded acetaminophen 3 tab PO Q6H PRN #0 tab 02/02/19 ibuprofen 600 mg PO QID PRN #14 tab 02/02/19 lancets 28 gauge #300 units 03/13/19 pen needle, diabetic 32 gauge x #200 each 09/17/19/ ammonium lactate 12 % lotion 1 applic TP QD-BID PRN #225 gm 09/27/19 insulin detemir U-100 100 unit/mL See Rx Instructions SUBCUT 09/27/19 (3 mL) subcutaneous pen .COMPLEX #15 syringe metformin 1,000 mg tablet 1,000 mg PO Q12 H #180 tab-cap 10/02/19 dulaglutide 1.5 mg/0.5 mL 1.5 mg SC QWEEK #12 syringe 10/16/19 subcutaneous pen injector pseudoephedrine HCl 120 mg 120 mg PO DAILY #10 tab 01/29/20 tablet,extended release lisinopril 10 mg tablet 10 mg PO DAILY #90 tab 03/18/20 nystatin 100,000 unit/gram topical 1 applic TP BID #60 gm 03/18/20 powder trazodone 300 mg tablet 300 mg PO QHS #90 tab 03/18/20 bupropion HCl 150 mg 24 hr tablet, 150 mg PO QAM #90 tab 04/29/20 extended release glimepiride 4 mg tablet 8 mg PO QAM #180 tab 06/26/20 hydrocodone-acetaminophen [Vicodin 1 tab PO Q6H PRN 3 Days #7 tab 07/02/20 HP] tamsulosin 0.4 mg PO QHS 7 Days #7 cap 07/02/20 Allergies Allergy/AdvReac Type Severity Reaction Status Date / Time imiquimod Allergy Intermediate Topical Verified 07/02/20 14:19 Irritation tramadol AdvReac Unknown Nausea Verified 07/02/20 14:19 DUST Allergy Mild CONGESTED Uncoded 07/02/20 14:19 [place]LLY [place] Allergy Unknown SOB Uncoded 07/02/20 14:19 General Stated Complaint: FlankPain PIOTR: 3 Review of Systems Narrative: Constitutional: Negative for weight loss, alert and oriented, well groomed, normal body habitus, appears comfortable. HEENT: Denies trauma, headaches, blurry vision, nasal discharge, sore throat, trouble swallowing. Chest: Denies chest pain, palpitations, irregular rhythm, hypertension. Respiratory: Denies Shortness of breath, cough, hemoptysis. GI: Denies abdominal pain, diarrhea, constipation. Positive nausea vomiting. : Denies rectal bleeding. Positive right flank pain, urinary hesitancy. Neuro: Denies dizziness, blurry vision, weakness, syncope, headache or facial numbness. Hematologic: Denies easy bruising, intolerance to heat or cold, hair loss. 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 Appears stated age. Normal body habitus. Head: Normocephalic, no trauma. Eyes: Pupils PERRLA, Red reflex noted, EOM's intact. Eyelids symmetrical without lesions, discharge, or swelling. ENT: Bilateral TM's WNL, External ear normal to inspection, no mastoid TTP, swelling, or erythema, Nasal turbinates WNL, no nasal discharge. Normal dentition, Posterior pharynx WNL, no exudate. Chest: RRR, Normal S1, S2, distal pulses intact. Resp: Lungs clear to auscultation bilaterally, no wheezes, rales, or rhonchi. GI/: Right CVA tenderness to palpation. Abdomen soft nontender to palpation all 4 quadrants. Musculoskeletal: Normal gait, 5/5 strength to all four extremities. Skin: No suspicious rashes or lesions. Capillary refill less than 2 sec. Neurologic: Cranial nerves II-XII intact. Alert and oriented x 3. DTR's intact. Hematologic/Lymphatic: No ecchymosis, no lymphadenopathy. Course Vital Signs Vital signs: Vital Signs Temperature 36.4 C L 07/02/20 14:14 Pulse 93 H 07/02/20 14:14 Respiratory Rate 16 07/02/20 14:14 Blood Pressure 150/76 H 07/02/20 14:14 Pulse Oximetry 99 07/02/20 14:14 Temperature 36.4 C L 07/02/20 14:14 Temperature Source Skin 07/02/20 14:14 Pulse 93 H 07/02/20 14:14 Respiratory Rate 16 07/02/20 14:14 Respiratory Effort Non-Labored 07/02/20 14:14 Blood Pressure 150/76 H 07/02/20 14:14 Blood Pressure Position Supine 07/02/20 14:14 Pulse Oximetry 99 07/02/20 14:14 Oxygen Delivery Method Room Air 07/02/20 14:14 Oxygen Flow Rate 0 07/02/20 14:14 Pain Level 7 07/02/20 14:14
[2020-07-02 14:32] LABS: Abs Immature Grans 0.05 10^3/uL (0.0-0.06); Absolute Basophil Count 0.04 10^3/uL (0.0-0.2); Absolute Eosinophil Count 0.37 10^3/uL (0.0-0.7); Absolute Lymphocyte Count 3.76 10^3/uL (1.2-3.4); Absolute Monocyte Count 0.48 10^3/uL (0.1-0.8); Absolute Neutrophil Count 4.28 10^3/uL (1.2-6.7); Basophils % 0.4; Eosinophils % 4.1; HCT 45.4 % (40.0-50.0); HGB 14.3 g/dL (13.5-17.5); Immature Grans % 0.6; Lymphocytes % 41.9; MCH 26.9 pg (27.0-33.0); MCHC 31.5 % (32.0-36.0); MCV 85.3 fL (80-95); MPV 9.8 fL (8.0-11.0); Monocytes % 5.3; Neutrophils % 47.7; Nucleated RBC 0 %; Platelet Count 268 10^3/uL (130-400); RBC 5.32 10^6/uL (4.36-5.78); RDW 12.5 % (11.8-14.1); RDW-SD 38.8 fL; WBC 8.98 10^3/uL (4.4-10.8)
[2020-07-02] MEDS: Ondansetron 4 MG/2 ML VIAL IVP (14:38)
[2020-07-02] MEDS: Normal Saline 1,000 ML 1000 ML IV (14:38)
[2020-07-02] MEDS: Ketorolac 30 MG/ML VIAL IVP (14:39)
[2020-07-02 14:59] LABS: ALT 34 U/L (16-63); AST 22 U/L (15-37); Albumin 3.7 g/dL (3.4-5.0); Alkaline Phosphatase 93 U/L (46-116); Anion Gap 6.9 mmol/L (3-11); BUN 11 mg/dL (7-18); Bilirubin, Total 0.2 mg/dL (0.2-1.0); CO2 28.1 mmol/L (21.0-32.0); CREATININE 1.14 mg/dL (0.70-1.30); Calcium 9.1 mg/dL (8.5-10.1); Chloride 104 mmol/L (98-107); Glucose 66 mg/dL (74-106); Potassium 4.5 mmol/L (3.5-5.1); Sodium 139 mmol/L (136-145); Total Protein 7.5 g/dL (6.4-8.2)
[2020-07-02 16:04] VITALS: BP 129/82; PULSE 86; RESP 15; O2SAT 98
--- NOTE | 2020-07-03 07:54 | NUR.NOTE ---
Nursing Note: Lab called inquiring about cancelling UA from 07/02/20. Pt discharged. Order cancelled, provider aware.
== END 2020-07-02 16:06 | disposition home or self-care (01) ==
PROVIDERS: Emergency Provider Registered Nurse Emergency; PCP Internal Medicine
DX: N13.2 Hydronephrosis with renal and ureteral calculous obstruction (principal); Z87.442 Personal history of urinary calculi; E11.9 Type 2 diabetes mellitus without complications; Z79.84 Long term (current) use of oral hypoglycemic drugs; I10 Essential (primary) hypertension
CPT/HCPCS: 36415; 80053; 96361; 96374; 96375; 99284; 74176; 81003; 85025; J1885; J2405

== ENCOUNTER 2020-07-03 16:04 | Outpatient (REF) | payer BC, SELFPAY ==
[2020-07-08 15:29] LABS: Source: Passed Stone
== END 2020-07-03 16:24 ==
LOC: LBN 16:04
PROVIDERS: PCP Internal Medicine; Visit Provider Registered Nurse Emergency
DX: N20.0 Calculus of kidney (principal)
CPT/HCPCS: 82365

== ENCOUNTER 2020-09-04 22:32 | Emergency (ER) | payer BC, SELFPAY ==
[2020-09-04 22:50] VITALS: BP 161/109; PULSE 95; RESP 20; TEMP 36.5; O2SAT 97
--- NOTE | 2020-09-04 23:02 | ED.GENADUL_ITS ---
Discharge Plan Disposition Patient Disposition: HOME Condition: Stable Discharge Details Clinical Impression: Left shoulder pain Primary Care Provider: Balbina Matthews ED Provider: Raya Serrano Home Meds and New Rx's Prescriptions: Continued (DME) pen needle, diabetic [Easy Touch] 32 gauge x 5/32 needle 1 box Miscellaneous DAILY Qty: 200 RF: 3 (DME) blood-glucose meter [Blood Glucose Monitoring] Kit See Rx Instructions .ROUTE .MEDSUPPLY Qty: 1 RF: 0 (DME) lancets [FreeStyle Lancets] 28 gauge misc 1 ea Miscellaneous DAILY Qty: 300 RF: 3 lisinopril 10 mg tablet 10 mg PO DAILY Qty: 90 RF: 3 trazodone 300 mg tablet 300 mg PO QHS Qty: 90 RF: 3 nystatin 100,000 unit/gram powder 1 applic TP BID Qty: 60 RF: 5 metformin [Glucophage] 1,000 mg tablet 1,000 mg PO Q12 H Qty: 180 RF: 3 Trulicity 1.5 mg/0.5 mL pen injector 1.5 mg SC QWEEK Qty: 12 RF: 3 glimepiride [Amaryl] 4 mg tablet 8 mg PO QAM Qty: 180 RF: 3 naproxen 500 mg tablet 500 mg PO BID Qty: 60 RF: 0 pseudoephedrine HCl [Nasal Decongestant (pseudoeph)] 120 mg tablet extended release 120 mg PO DAILY PRNRF: 0 Levemir FlexTouch U-100 Insuln 100 unit/mL (3 mL) insulin pen 20 unit subcut BID RF: 0 Discharge Instructions Instructions: Shoulder Pain (ED) Additional Instructions: Ice, rest Take medications as previously prescribed and the medications at home with you. Take the Percocet with food no driving or operating heavy machinery. Follow-up with orthopedics within 1 to 2-week we will place you on a care management list to assist you getting a follow-up appointment. Follow up with primary care provider in 3-5 days. Return to ED sooner if any worsening or concerns. Increase oral fluids. Please take Tylenol or Ibuprofen with food every 4-6 hours as needed for pain and swelling. Stand Alone Forms: Work Release Referrals: Tristan Hussein MD [ [facility] STAFF PHYSICIAN] - Balbina Matthews MD [Primary Care Provider] - Medical Decision Making 30-year-old male presents to the ER with chief complaint of left shoulder pain. 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 He denies any recent injuries, he does have pinpoint tenderness noted to the anterior inferior AC joint and down into his supraspinatus and axillary region. He can raise his left arm approximately 75 degrees. Patient was seen by his primary care provider approximately 1-1/2 months ago for same complaint and was prescribed naproxen. He states that naproxen has been helping somewhat but it has worsened over the last couple of days he was having trouble sleeping tonight due to the pain. He denies any chest pain, no posterior scapular tenderness with palpation, no shortness of breath no other complaints at this time. He does have a past medical history of diabetes, hypertension, kidney stones. At this time x-ray of shoulder ordered due to patient never having any imaging, lidocaine topical patch, one percocet ordered. 2343: X-ray shows some questional nonspecific loose bodies noted to the joint space, no significant dislocation or fracture noted. X-ray has been read by [facility] at this time. Plan is to refer patient to orthopedics. Imaging protocol: XR Left shoulder. Views: 2 or more views. COMPARISON: No relevant prior studies available. FINDINGS: Bones/joints: Normal. Soft tissues: Normal. IMPRESSION: No acute findings. HPI General Mode of arrival: ambulatory . Date/Time Provider Initiated Documentation: 09/04/20 22:34 . Limitations to Documentation: no limitations . Information obtained by: patient . HPI Narrative: 30-year-old male presents to the ER with chief complaint of left shoulder pain. 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 He denies any recent injuries, he does have pinpoint tenderness noted to the anterior inferior AC joint and down into his supraspinatus and axillary region. He can raise his left arm approximately 75 degrees. Patient was seen by his primary care provider approximately 1-1/2 months ago for same complaint and was prescribed naproxen. He states that naproxen has been helping somewhat but it has worsened over the last couple of days he was having trouble sleeping tonight due to the pain. He denies any chest pain, no posterior scapular tenderness with palpation, no shortness of breath no other complaints at this time. He does have a past medical history of diabetes, hypertension, kidney stones. Related Data Home Medications Medication Instructions Recorded Confirmed lancets 28 gauge #300 units 03/13/19 07/23/20 blood-glucose meter #1 each 09/17/19 07/23/20 pen needle, diabetic 32 gauge x #200 each 09/17/19 07/23/20 metformin 1,000 mg tablet 1,000 mg PO Q12 H #180 tab-cap 10/02/19 09/04/20 dulaglutide 1.5 mg/0.5 mL 1.5 mg SC QWEEK #12 syringe 10/16/19 09/04/20 subcutaneous pen injector lisinopril 10 mg tablet 10 mg PO DAILY #90 tab 03/18/20 09/04/20 nystatin 100,000 unit/gram topical 1 applic TP BID #60 gm 03/18/20 09/04/20 powder trazodone 300 mg tablet 300 mg PO QHS #90 tab 03/18/20 09/04/20 glimepiride 4 mg tablet 8 mg PO QAM #180 tab 06/26/20 09/04/20 naproxen 500 mg tablet 500 mg PO BID #60 tab 09/01/20 09/04/20 Levemir FlexTouch U-100 Insuln 20 unit SUBCUT BID 09/04/20 09/04/20 pseudoephedrine HCl [Nasal 120 mg PO DAILY PRN 09/04/20 09/04/20 Decongestant (pseudoeph)] Previous Rx's Medication Instructions Recorded lancets 28 gauge #300 units 03/13/19 pen needle, diabetic 32 gauge x #200 each 09/17/19 metformin 1,000 mg tablet 1,000 mg PO Q12 H #180 tab-cap 10/02/19 dulaglutide 1.5 mg/0.5 mL 1.5 mg SC QWEEK #12 syringe 10/16/19 subcutaneous pen injector lisinopril 10 mg tablet 10 mg PO DAILY #90 tab 03/18/20 nystatin 100,000 unit/gram topical 1 applic TP BID #60 gm 03/18/20 powder trazodone 300 mg tablet 300 mg PO QHS #90 tab 03/18/20 glimepiride 4 mg tablet 8 mg PO QAM #180 tab 06/26/20 naproxen 500 mg tablet 500 mg PO BID #60 tab 09/01/20 Allergies Allergy/AdvReac Type Severity Reaction Status Date / Time imiquimod Allergy Intermediate Topical Verified 09/04/20 23:10 Irritation tramadol AdvReac Unknown Nausea Verified 09/04/20 23:10 DUST Allergy Mild CONGESTED Uncoded 09/04/20 23:10 [place]LLY [place] Allergy Unknown SOB Uncoded 09/04/20 23:10 General PIOTR: 3 Review of Systems All systems reviewed & are unremarkable except as noted in HPI and below Musculoskeletal Musculoskeletal: Reports arthralgias (Left shoulder) and Reports limited range of motion (Left shoulder) [facility] Medical History (Updated 09/04/20 @ 23:51 by Raya Serrano) Diabetes mellitus (07/31/06) Kidney stones Surgical History H/O circumcision [place] teeth extracted 04/20/15 Dr Cruz Family History Mother Diabetes Social History Smoking/Tobacco Use Status: Current-Occasional Tobacco Type: cigarettes Tobacco: How many years used: 2 Smoking risk assessment performed?: Yes Alcohol Intake: former Drug use: Never Substance use type: does not use Adopted: Yes Housing: apartment Communication Needs: None 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 Appears stated age. Normal body habitus. Head: Normocephalic, no trauma. Eyes: Pupils PERRLA, Red reflex noted, EOM's intact. Eyelids symmetrical without lesions, discharge, or swelling. Chest: RRR, Normal S1, S2, distal pulses intact. Nontender to palpation. Resp: Lungs clear to auscultation bilaterally, no wheezes, rales, or rhonchi. Musculoskeletal: Normal gait, 5/5 strength to all four extremities. Does have anterior pinpoint tenderness to palpation over the AC joint, extending down into the supraspinatus and axillary region, he has decreased abduction of the shoulder to approximately 75 degrees. No posterior scapular tenderness with palpation. Skin: No suspicious rashes or lesions. Capillary refill less than 2 sec. Neurologic: Cranial nerves II-XII intact. Alert and oriented x 3. DTR's intact. Hematologic/Lymphatic: No ecchymosis, no lymphadenopathy.
[2020-09-04] MEDS: oxyCODONE 5 mg/Acetaminophen 325 mg TAB 1 TAB PO (23:16)
[2020-09-04] MEDS: Lidocaine 5% Patch 1 PATCH TP (23:17)
--- NOTE | 2020-09-04 23:36 | DI.RAD_ITS ---
EXAM: XR SHOULDER LT COMPLETE 2+V CLINICAL HISTORY: Left shoulder pain. TECHNIQUE: 2D digital imaging was performed. COMPARISON: No exams were available for comparison FINDINGS: BONES: No acute fracture is present. No bony destructive lesion is seen. Incidental note is made of a n os acromiale. There is a well corticated osseous density anterior to the glenoid which appears old . There is a tiny well corticated osseous density superior to the humeral head which appears chronic . JOINTS: No dislocation present. Mild degenerative changes are seen at the acromioclavicular joint. SOFT TISSUE: Normal. IMPRESSION: No acute abnormality. DATA REPOSITORY: RADIATION DOSE DELIVERED:
--- NOTE | 2020-09-04 23:56 | NUR.NOTE ---
Nursing Note: referrral sent to ortho for left shoulder pain [facility]
[2020-09-05] MEDS: oxyCODONE 5 mg/Acetaminophen 325 mg TAB 2 TAB PO (00:02)
--- NOTE | 2020-09-05 00:02 | DI.VRAD_ITS ---
PROCEDURE INFORMATION: Exam: XR Left Shoulder Exam date and time: 09/04/2020 11:02 PM Age: 30 years old Clinical indication: Patient HX: No trauma, anterior pain in left shoulder TECHNIQUE: Imaging protocol: XR Left shoulder. Views: 2 or more views. COMPARISON: No relevant prior studies available. FINDINGS: Bones/joints: Normal. Soft tissues: Normal. IMPRESSION: No acute findings. Dictated and Authenticated by: Cliff Ibrahim MD. Ordering:FRANKLYN Dos Santos MD
== END 2020-09-05 00:05 | disposition home or self-care (01) ==
PROVIDERS: Emergency Provider Registered Nurse Emergency; PCP Internal Medicine
DX: M25.512 Pain in left shoulder (principal); X50.3XXA Overexertion from repetitive movements, initial encounter
CPT/HCPCS: 99283; 73030; 99284

== ENCOUNTER 2021-03-01 22:11 | Emergency (ER) | payer BC, SELFPAY ==
[2021-03-01 22:16] VITALS: BP 154/92; PULSE 94; RESP 18; TEMP 36.6; O2SAT 98
--- NOTE | 2021-03-01 22:32 | ED.GENADUL_ITS ---
Discharge Plan Disposition Patient Disposition: HOME Condition: Improving Discharge Details Clinical Impression: Nausea & vomiting Primary Care Provider: Balbina Matthews ED Provider: Jamel Naylor Home Meds and New Rx's Prescriptions: New ondansetron HCl [Zofran] 4 mg tablet 4 mg PO Q8H PRNQty: 10 RF: 0 Continued (DME) blood-glucose meter [Blood Glucose Monitoring] Kit See Rx Instructions .ROUTE .MEDSUPPLY Qty: 1 RF: 0 trazodone 300 mg tablet 600 mg PO QHS Qty: 180 RF: 3 lisinopril 10 mg tablet 10 mg PO DAILY Qty: 90 RF: 3 (DME) lancets [FreeStyle Lancets] 28 gauge misc 1 ea Miscellaneous DAILY Qty: 300 RF: 3 (DME) pen needle, diabetic 32 gauge x 5/16 needle See Rx Instructions .ROUTE .MEDSUPPLY Qty: 100 RF: 11 glimepiride [Amaryl] 4 mg tablet 8 mg PO QAM Qty: 180 RF: 3 naproxen 500 mg tablet 500 mg PO BID Qty: 60 RF: 0 metformin [Glucophage] 1,000 mg tablet 1,000 mg PO Q12 H Qty: 180 RF: 3 Trulicity 1.5 mg/0.5 mL pen injector 1.5 mg SC QWEEK Qty: 12 RF: 3 Toujeo SoloStar U-300 Insulin 300 unit/mL (1.5 mL) insulin pen 18 unit subcut DAILY Qty: 6 RF: 3 pseudoephedrine HCl [Nasal Decongestant (pseudoeph)] 120 mg tablet extended release 120 mg PO DAILY PRNRF: 0 Discharge Instructions Instructions: Acute Nausea and Vomiting (ED) Additional Instructions: Laboratory values do not reveal any obvious emergent process. Zofran as directed. Glades diet, advance as tolerated. Plenty of fluids to avoid dehydration. While you are feeling this way, I recommend checking your glucose levels more frequently. Please watch for new or worsening symptoms and return to the ER for any concerns. Lastly, I recommend reaching out your primary care provider tomorrow to discuss your ongoing symptoms, and potentially referral to GI. Medical Decision Making 31-year-old gentleman, history of insulin-dependent diabetes, presents to the ER reporting worsening nausea and vomiting than his baseline, reports about 18 episodes today. Other than that he has no acute concerns or complaints. Notices blood sugar levels being lower earlier, attempted to have something to eat, And 140s and 50s. He does not take any medication for his chronic nausea and vomiting. Clinically he appears well, nontoxic, afebrile, hemodynamically stable, mild hypertension, no signs of severe dehydration, abdomen is soft, nontender. No active dry heaving. Low suspicion for DKA. Denies recent travel or sick contacts. No bad food exposure. Will obtain IV access, give IV fluid, Zofran, and obtain routine laboratory values. Laboratory values reveal a normal white count, no evidence of anemia, platelet count 294, electrolytes sodium 140 potassium 3.8 chloride 101, anion gap 5.5 BUN 9 creatinine 0.9, GFR greater than 60. Glucose 146, calcium 9.1 total bili and LFTs unremarkable. Urinalysis with trace ketones, 250 glucose No vomiting while under my care. Upon reevaluation patient reports improvement with his Zofran. We discussed with benign laboratory values. Will p.o. challenge and if successful will send home with a Zofran take-home pack, encouraged bland diet advancing as tolerated, and contact his primary care provider tomorrow. Standard discharge and return precautions given This documentation was generated using Tesseract Interactive dictation system, please disregard any oddities of phrase or misspellings. Medical Records Medical records reviewed: Yes I reviewed the patient's medical records. Lab Data Lab results reviewed: Yes I reviewed the patient's lab results. Labs: Laboratory Tests Range/Units 03/01/21 03/01/21 03/01/21 22:35 22:35 22:35 WBC (4.4-10.8) 10^3/uL 8.90 RBC (4.36-5.78) 10^6/uL 5.74 Hgb (13.5-17.5) g/dL 15.4 Hct (40.0-50.0) % 49.4 MCV (80-95) fL 86.1 MCH (27.0-33.0) pg 26.8 L MCHC (32.0-36.0) % 31.2 L RDW (11.8-14.1) % 12.0 Plt Count (130-400) 10^3/uL 294 MPV (8.0-11.0) fL 9.7 Immature Gran % 0.8 Neutrophils % 55.5 Lymphocytes % 33.9 Monocytes % 6.6 Eosinophils % 2.8 Basophils % 0.4 Nucleated RBC % % 0 Absolute Neutrophils (1.2-6.7) 10^3/uL 4.93 Absolute Lymphocytes (1.2-3.4) 10^3/uL 3.02 Absolute Monocytes (0.1-0.8) 10^3/uL 0.59 Absolute Eosinophils (0.0-0.7) 10^3/uL 0.25 Absolute Basophils (0.0-0.2) 10^3/uL 0.04 Sodium (136-145) mmol/L 140 Potassium (3.5-5.1) mmol/L 3.8 Chloride (98-107) mmol/L 101 Carbon Dioxide (21.0-32.0) mmol/L 33.5 H Anion Gap (3-11) mmol/L 5.5 BUN (7-18) mg/dL 9 Creatinine (0.70-1.30) mg/dL 0.9 Estimated GFR/1.73 m2 (mL/min/1.73m2) >= 60.00 Glucose (74-106) mg/dL 146 H Calcium (8.5-10.1) mg/dL 9.1 Total Bilirubin (0.2-1.0) mg/dL 0.3 AST (15-37) U/L 20 ALT (16-63) U/L 45 Alkaline Phosphatase (46-116) U/L 87 Total Protein (6.4-8.2) g/dL 7.9 Albumin (3.4-5.0) g/dL 3.9 Lipase (73-393) U/L 122 Urine Color (Yellow) Yellow Urine Clarity (Clear) Clear Urine pH (5-8) 7.0 Ur Specific [place] (1.005-1.025) 1.025 Urine Protein (Negative) mg/dL Negative Urine Ketones (Negative) mg/dL Trace H Urine Blood (Negative) Negative Urine Nitrite (Negative) Negative Urine Bilirubin (Negative) Negative Urine Urobilinogen (Up TO 0.2) EU/dL 1.0 H Ur Leukocyte Esterase (Negative) Negative Urine Glucose (Negative) mg/dL 250 H HPI General Mode of arrival: ambulatory . Date/Time Provider Initiated Documentation: 03/01/21 22:12 . Limitations to Documentation: no limitations . Information obtained by: patient . HPI Narrative: This is a 31-year-old male, past medical history of depression, anxiety, diabetes, insulin-dependent, hypertension, presenting to the ER for evaluation of nausea and vomiting that began this morning. Overall he has felt cold today but denies fever, headache, neck pain, chest pain, shortness of breath, abdominal pain, dysuria, constipation, skin rash, numbness, tingling, weakness. He reports that he did take his insulin earlier today, was able to hold down his medications, but reports it has been difficult holding down any food or water. He noted his glucose was 55 earlier today, states that he had cereal and mashed potatoes, did vomit most of the backup but his glucose was been up in the 150s and 160s. He states that he has vomited an abnormal amount most of his life although today he has vomited at least 18 times. He used to be on a very strict diet which seemed to help however he is no longer on this diet and he is back to vomiting on a very frequent basis. He has never been evaluated by a GI specialist. He is concerned about dehydration. He reports that he occasionally smokes a cigar. Occasionally drinks, reports 10 alcoholic drinks on Monday. Did have some diarrhea on Monday as well Related Data Home Medications Medication Instructions Recorded Confirmed lancets 28 gauge #300 units 03/13/19 02/23/21 blood-glucose meter #1 each 09/17/19 02/23/21 glimepiride 4 mg tablet 8 mg PO QAM #180 tab 06/26/20 03/01/21 naproxen 500 mg tablet 500 mg PO BID #60 tab 09/01/20 03/01/21 pseudoephedrine HCl [Nasal 120 mg PO DAILY PRN 09/04/20 03/01/21 Decongestant (pseudoeph)] metformin 1,000 mg tablet 1,000 mg PO Q12 H #180 tab-cap 09/29/20 03/01/21 dulaglutide 1.5 mg/0.5 mL 1.5 mg SC QWEEK #12 syringe 10/23/20 03/01/21 subcutaneous pen injector pen needle, diabetic 32 gauge x #100 ea 11/18/20 02/23/2112/13 Toujeo SoloStar U-300 Insulin 300 18 unit SUBCUT DAILY #6 syrg NS 02/23/21 03/01/21 unit/mL (1.5 mL) subcutaneous pen lisinopril 10 mg tablet 10 mg PO DAILY #90 tab 02/23/21 03/01/21 trazodone 300 mg tablet 600 mg PO QHS #180 tab 02/23/21 03/01/21 ondansetron HCl [Zofran] 4 mg PO Q8H PRN #10 tab 03/01/21 Previous Rx's Medication Instructions Recorded lancets 28 gauge #300 units 03/13/19 glimepiride 4 mg tablet 8 mg PO QAM #180 tab 06/26/20 naproxen 500 mg tablet 500 mg PO BID #60 tab 09/01/20 metformin 1,000 mg tablet 1,000 mg PO Q12 H #180 tab-cap 09/29/20 dulaglutide 1.5 mg/0.5 mL 1.5 mg SC QWEEK #12 syringe 10/23/20 subcutaneous pen injector pen needle, diabetic 32 gauge x #100 ea 11/18/20/ Toujeo SoloStar U-300 Insulin 300 18 unit SUBCUT DAILY #6 syrg NS 02/23/21 unit/mL (1.5 mL) subcutaneous pen lisinopril 10 mg tablet 10 mg PO DAILY #90 tab 02/23/21 trazodone 300 mg tablet 600 mg PO QHS #180 tab 02/23/21 ondansetron HCl [Zofran] 4 mg PO Q8H PRN #10 tab 03/01/21 Allergies Allergy/AdvReac Type Severity Reaction Status Date / Time imiquimod Allergy Intermediate Topical Verified 03/01/21 22:22 Irritation tramadol AdvReac Unknown Nausea Verified 03/01/21 22:22 DUST Allergy Mild CONGESTED Uncoded 03/01/21 22:22 LO[place]LLY [place] Allergy Unknown SOB Uncoded 03/01/21 22:22 General Stated Complaint: Nausea/Vomit/Diar PIOTR: 3 Review of Systems Constitutional Constitutional: Denies fatigue, Denies fever(s) and Denies headache(s) ENT Ears, Nose, Mouth, and Throat: Denies headache(s) Cardiovascular Cardiovascular: Denies chest pain and Denies dyspnea Respiratory Respiratory: Denies cough and Denies dyspnea Gastrointestinal Gastrointestinal: Denies abdominal pain, Denies constipation, Denies diarrhea, Reports nausea and Reports vomiting Genitourinary Genitourinary: Denies dysuria Musculoskeletal Musculoskeletal: Denies back pain Integumentary/Breasts Skin/Breast: Denies rash Neurologic Neurologic: Denies headache(s) Endocrine Endocrine: Denies fatigue [facility] Medical History Biceps tendinitis of left shoulder Diabetes mellitus (07/31/06) Kidney stones Tendonitis of left rotator cuff Surgical History H/O circumcision [place] teeth extracted 04/20/15 Dr Cruz Family History Mother Diabetes Social History Smoking/Tobacco Use Status: Current-Occasional Tobacco Type: cigarettes Tobacco: How many years used: 2 Smoking risk assessment performed?: Yes Alcohol Intake: former Drug use: Never Substance use type: does not use Adopted: Yes Housing: apartment Communication Needs: None 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[employer] Current gender identity: male What type of physical activity do you participate in: walking and bicycling Duration: 30-45 minutes/day Frequency: 5-6 times per week Seatbelt use: always Drive intox 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 Do you feel safe at home: Yes Do you feel safe in your relationship?: Yes Exam Const General: cooperative, healthy appearing, comfortable and no acute distress Orientation: alert, awake and oriented x3 HENMT Head: normal to inspection, normocephalic and atraumatic Face and sinus: normal facial exam Mouth: moist mucous membranes Eyes General: appearance normal, both eyes and all related structures Conjunctivae: conjunctivae normal Neck Neck: normal visual inspection, trachea midline and supple Resp Effort & Inspection: normal respiratory effort and able to speak in complete sentences Auscultation: clear to auscultation bilaterally Cardio Rate: regular rate Rhythm: regular rhythm GI Inspection: normal to inspection Palpation: soft, not firm, no guarding, no pulsatile masses and nontender Auscultation: normal bowel sounds Back/Spine/Pelvis Back: No back tenderness Skin General skin exam: no rashes or lesions noted Neuro General: patient alert, patient awake, moves all extremities and no focal motor deficits Cognition: normal cognition Speech: speech normal Gait: normal gait Sensory Exam: no sensory deficits noted Extrem General: normal to inspection and full ROM Psych Appearance: grossly normal Mental Status: mental status grossly normal Course Vital Signs Vital signs: Vital Signs Temperature 36.6 C 03/01/21 22:16 Pulse 94 H 03/01/21 22:16 Respiratory Rate 18 03/01/21 22:16 Blood Pressure 154/92 H 03/01/21 22:16 Pulse Oximetry 98 03/01/21 22:16 Temperature 36.6 C 03/01/21 22:16 Temperature Source Temporal Artery Scan 03/01/21 22:16 Pulse 94 H 03/01/21 22:16 Respiratory Rate 18 03/01/21 22:16 Respiratory Effort Non-Labored 03/01/21 22:24 Blood Pressure 154/92 H 03/01/21 22:16 Blood Pressure Position Sitting 03/01/21 22:16 Pulse Oximetry 98 03/01/21 22:16 Pain Level 0 03/01/21 22:16
[2021-03-01] MEDS: Normal Saline 1,000 ML 1000 ML IV (22:34)
[2021-03-01] MEDS: Ondansetron 4 MG/2 ML VIAL IVP (22:41)
[2021-03-01 22:42] LABS: Abs Immature Grans 0.07 10^3/uL (0.0-0.06); Absolute Basophil Count 0.04 10^3/uL (0.0-0.2); Absolute Eosinophil Count 0.25 10^3/uL (0.0-0.7); Absolute Lymphocyte Count 3.02 10^3/uL (1.2-3.4); Absolute Monocyte Count 0.59 10^3/uL (0.1-0.8); Absolute Neutrophil Count 4.93 10^3/uL (1.2-6.7); Basophils % 0.4; Eosinophils % 2.8; HCT 49.4 % (40.0-50.0); HGB 15.4 g/dL (13.5-17.5); Immature Grans % 0.8; Lymphocytes % 33.9; MCH 26.8 pg (27.0-33.0); MCHC 31.2 % (32.0-36.0); MCV 86.1 fL (80-95); MPV 9.7 fL (8.0-11.0); Monocytes % 6.6; Neutrophils % 55.5; Nucleated RBC 0 %; Platelet Count 294 10^3/uL (130-400); RBC 5.74 10^6/uL (4.36-5.78); RDW-SD 37.8 fL
[2021-03-01 22:43] LABS: Bilirubin Negative (Negative); Blood Negative (Negative); Clarity Clear (Clear); Glucose 250 mg/dL (Negative); Ketones Trace mg/dL (Negative); Leukocyte Esterase Negative (Negative); Nitrite Negative (Negative); Specific Gravity 1.025 (1.005-1.025)
[2021-03-01 22:56] LABS: ALT 45 U/L (16-63); AST 20 U/L (15-37); Albumin 3.9 g/dL (3.4-5.0); Alkaline Phosphatase 87 U/L (46-116); Anion Gap 5.5 mmol/L (3-11); BUN 9 mg/dL (7-18); Bilirubin, Total 0.3 mg/dL (0.2-1.0); CO2 33.5 mmol/L (21.0-32.0); CREATININE 0.9 mg/dL (0.70-1.30); Calcium 9.1 mg/dL (8.5-10.1); Chloride 101 mmol/L (98-107); Glucose 146 mg/dL (74-106); Lipase 122 U/L (73-393); Potassium 3.8 mmol/L (3.5-5.1); Sodium 140 mmol/L (136-145); Total Protein 7.9 g/dL (6.4-8.2)
[2021-03-01 23:37] VITALS: BP 140/92; PULSE 89; RESP 16; TEMP 36.6; O2SAT 98
[2021-03-01] MEDS: Ondansetron O.D.T. 4 MG TABEF, 3 TABS/BTL PO (23:39)
== END 2021-03-01 23:37 | disposition home or self-care (01) ==
PROVIDERS: Emergency Provider Physician Assistant; PCP Internal Medicine
DX: R11.2 Nausea with vomiting, unspecified (principal); E11.9 Type 2 diabetes mellitus without complications; Z79.4 Long term (current) use of insulin
CPT/HCPCS: 36415; 80053; 83690; 96361; 96374; 99284; 81003; 85025; J2405

== ENCOUNTER 2021-07-29 02:51 | Outpatient (RCR) | payer BC, SELFPAY ==
[2021-07-27] MEDS: Normal Saline Flush 10 ML SYR IVP (12:57)
[2021-07-27] MEDS: cefTRIAXone 2 GM/50 ML BAG IVPB (12:57)
[2021-07-28] MEDS: Normal Saline 1,000 ML 999 ML IV (13:00)
[2021-07-28] MEDS: Ondansetron 4 MG/2 ML VIAL IV (13:10)
[2021-07-28] MEDS: Normal Saline Flush 10 ML SYR IVP (13:13)
[2021-07-28 13:17] VITALS: TEMP 36.6
[2021-07-28] MEDS: cefTRIAXone 2 GM/50 ML BAG IVPB (14:08)
== END 2021-07-30 23:59 | disposition home or self-care (01) ==
LOC: INF 02:51
PROVIDERS: PCP Internal Medicine; Visit Provider Internal Medicine
DX: L03.314 Cellulitis of groin (principal)
CPT/HCPCS: 96360; 96361; 96365; 96374; J2405

== ENCOUNTER 2021-07-29 11:59 | Emergency (ER) | payer BC, SELFPAY ==
[2021-07-29 12:01] VITALS: BP 124/73; PULSE 92; RESP 16; TEMP 36.3; O2SAT 99
[2021-07-29 12:26] LABS: Abs Immature Grans 0.06 10^3/uL (0.0-0.06); Absolute Basophil Count 0.04 10^3/uL (0.0-0.2); Absolute Eosinophil Count 0.34 10^3/uL (0.0-0.7); Absolute Lymphocyte Count 2.26 10^3/uL (1.2-3.4); Absolute Monocyte Count 0.63 10^3/uL (0.1-0.8); Absolute Neutrophil Count 5.53 10^3/uL (1.2-6.7); Basophils % 0.5; Eosinophils % 3.8; HCT 44.2 % (40.0-50.0); HGB 13.9 g/dL (13.5-17.5); Immature Grans % 0.7; Lymphocytes % 25.5; MCHC 31.4 % (32.0-36.0); MPV 9.9 fL (8.0-11.0); Monocytes % 7.1; Neutrophils % 62.4; Nucleated RBC 0 %; Platelet Count 273 10^3/uL (130-400); RBC 5.14 10^6/uL (4.36-5.78); RDW 11.8 % (11.8-14.1); WBC 8.86 10^3/uL (4.4-10.8)
[2021-07-29] MEDS: cefTRIAXone 1 GM/50 ML BAG IVPB (12:31)
[2021-07-29 12:43] LABS: ALT 24 U/L (16-63); AST 16 U/L (15-37); Albumin 3.2 g/dL (3.4-5.0); Alkaline Phosphatase 90 U/L (46-116); Anion Gap 5.3 mmol/L (3-11); BUN 9 mg/dL (7-18); Bilirubin, Total 0.2 mg/dL (0.2-1.0); CO2 28.7 mmol/L (21.0-32.0); CREATININE 1.1 mg/dL (0.70-1.30); Calcium 8.8 mg/dL (8.5-10.1); Chloride 101 mmol/L (98-107); Glucose 276 mg/dL (74-106); Potassium 4.9 mmol/L (3.5-5.1); Sodium 135 mmol/L (136-145); Total Protein 7.6 g/dL (6.4-8.2)
[2021-07-29] MEDS: Lidocaine/Epinephri/Tetracaine Topical Gel 3 ML TP (13:30)
--- NOTE | 2021-07-29 13:48 | ED.GENADUL_ITS ---
Discharge Plan Disposition Patient Disposition: HOME Condition: Stable Discharge Details Clinical Impression: Abscess Primary Care Provider: Balbina Matthews ED Provider: Maryse Parr Home Meds and New Rx's Prescriptions: Continued (DME) blood-glucose meter [Blood Glucose Monitoring] Kit See Rx Instructions .ROUTE .MEDSUPPLY Qty: 1 RF: 0 trazodone 300 mg tablet 600 mg PO QHS Qty: 180 RF: 3 hydrocodone-acetaminophen 5-325 mg tablet See Rx Instructions PO Q6H MDD 40mg PRN (Reason: pain) Qty: 20 RF: 0 ceftriaxone 2 gram recon soln 2 g IV DAILY Qty: 1 RF: 3 (DME) lancets [FreeStyle Lancets] 28 gauge misc 1 ea Miscellaneous DAILY Qty: 300 RF: 3 (DME) pen needle, diabetic 32 gauge x 5/16 needle See Rx Instructions .ROUTE .MEDSUPPLY Qty: 100 RF: 11 glimepiride [Amaryl] 4 mg tablet 8 mg PO QAM Qty: 180 RF: 3 lisinopril 10 mg tablet 10 mg PO DAILY Qty: 90 RF: 3 naproxen 500 mg tablet 500 mg PO BID Qty: 60 RF: 0 metformin [Glucophage] 1,000 mg tablet 1,000 mg PO Q12 H Qty: 180 RF: 3 Trulicity 1.5 mg/0.5 mL pen injector 1.5 mg SC QWEEK Qty: 12 RF: 3 Toujeo SoloStar U-300 Insulin 300 unit/mL (1.5 mL) insulin pen 18 unit subcut DAILY Qty: 6 RF: 3 bupropion HCl [Wellbutrin XL] 150 mg tablet extended release 24 hr 150 mg PO QAM Qty: 90 RF: 3 Discharge Instructions Instructions: Abscess (ED) Additional Instructions: Warm compresses for 10 to 15 minutes at least 3 times a day, showers and bath will help this. Take your pain medication as needed Take the Bactrim as prescribed twice a day You have an appointment to see the surgeon at 1115 on Monday Please return for recheck in 48 hours Please return earlier should you have new or worsening complaints including worsening pain, spreading redness, fever Take your Bactrim today Referrals: Rimma Jackson, [OSTEOPATHIC DOCTOR] - Medical Decision Making Patient is stable, does not appear to have generalized infection, no leukocytosis, afebrile, nontoxic Mild elevation in glucose, elevated blood arrived home No evidence of diabetic Warm compresses recommended Tolerated procedure with pain after, controlled at time of discharge Significant improvement in swelling on reassessment I discussed the case with Dr. Jackson, surgery, they are not available tomorrow at the office is closed, patient will be reassessed in the emergency room in 48 hours Recheck on Monday at scheduled appointment, [address] Jackson Will need wick removal in 48 to 72 hours Warm compresses recommended Patient was given a dose of ceftriaxone here He will take Bactrim twice daily as currently prescribed Return precautions discussed and patient expressed understanding Does have opiate analgesia that which was previously prescribed, he will continue to take this [id number] ultrasound performed to assess for loculated fluid for drainage, this test was positive for drainable abscess Medical Records Medical records reviewed: Yes I reviewed the patient's medical records. Lab Data Lab results reviewed: Yes I reviewed the patient's lab results. ECG Data Prior ECG tracings: available for review HPI General Mode of arrival: ambulatory . Date/Time Provider Initiated Documentation: 07/29/21 12:06 . Limitations to Documentation: no limitations . Information obtained by: patient . HPI Narrative: This 31-year-old gentleman with history of insulin-dependent type 2 diabetes, hypertension presents with report of abscess for the past 4 days. Patient states that he was initially evaluated at [facility] and had a CT scan of his groin region to assess for abscess. He was told that he did not have adrenal abscess and was initiated on antibiotics. He has been receiving IV infusion of ceftriaxone for the past 3 days. He did not have an infusion today. He denies any changes in urination. He denies any trauma to the affected area. He states his blood sugars have actually been stable. He states his blood sugar today was 128 prior to arrival. He denies any fever or chills. He denies history of similar symptoms in the past. He was sent in by his provider today secondary to enlargement of this abscess. He denies any IV drug abuse. Related Data Home Medications Medication Instructions Recorded Confirmed lancets 28 gauge #300 units 03/13/19 07/29/21 blood-glucose meter #1 each 09/17/19 07/29/21 naproxen 500 mg tablet 500 mg PO BID #60 tab 09/01/20 07/29/21 metformin 1,000 mg tablet 1,000 mg PO Q12 H #180 tab-cap 09/29/20 07/29/21 dulaglutide 1.5 mg/0.5 mL 1.5 mg SC QWEEK #12 syringe 10/23/20 07/29/21 subcutaneous pen injector pen needle, diabetic 32 gauge x #100 ea 11/18/20 07/29/21 5 Toujeo SoloStar U-300 Insulin 300 18 unit SUBCUT DAILY #6 syrg NS 02/23/21 07/29/21 unit/mL (1.5 mL) subcutaneous pen trazodone 300 mg tablet 600 mg PO QHS #180 tab 02/23/21 07/29/21 bupropion HCl 150 mg 24 hr tablet, 150 mg PO QAM #90 tab 05/11/21 07/29/21 extended release glimepiride 4 mg tablet 8 mg PO QAM #180 tab 06/29/21 07/29/21 lisinopril 10 mg tablet 10 mg PO DAILY #90 tab 06/29/21 07/29/21 ceftriaxone 2 gram intravenous 2 g IV DAILY #1 ea 07/27/21 07/29/21 solution hydrocodone 5 mg-acetaminophen 325 See Rx Instructions PO Q6H PRN #20 07/27/21 07/29/21 mg tablet tab MDD 40mg Previous Rx's Medication Instructions Recorded lancets 28 gauge #300 units 03/13/19 naproxen 500 mg tablet 500 mg PO BID #60 tab 09/01/20 metformin 1,000 mg tablet 1,000 mg PO Q12 H #180 tab-cap 09/29/20 dulaglutide 1.5 mg/0.5 mL 1.5 mg SC QWEEK #12 syringe 10/23/20 subcutaneous pen injector pen needle, diabetic 32 gauge x #100 ea 11/18/20 5 Toujeo SoloStar U-300 Insulin 300 18 unit SUBCUT DAILY #6 syrg NS 02/23/21 unit/mL (1.5 mL) subcutaneous pen trazodone 300 mg tablet 600 mg PO QHS #180 tab 02/23/21 bupropion HCl 150 mg 24 hr tablet, 150 mg PO QAM #90 tab 05/11/21 extended release glimepiride 4 mg tablet 8 mg PO QAM #180 tab 06/29/21 lisinopril 10 mg tablet 10 mg PO DAILY #90 tab 06/29/21 ceftriaxone 2 gram intravenous 2 g IV DAILY #1 ea 07/27/21 solution hydrocodone 5 mg-acetaminophen 325 See Rx Instructions PO Q6H PRN #20 07/27/21 mg tablet tab MDD 40mg Allergies Allergy/AdvReac Type Severity Reaction Status Date / Time imiquimod Allergy Intermediate Topical Verified 07/29/21 11:29 Irritation tramadol AdvReac Unknown Nausea Verified 07/29/21 11:29 oxycodone AdvReac Unverified 07/29/21 12:07 DUST Allergy Mild CONGESTED Uncoded 07/29/21 11:29 LO[place]LLY [place] Allergy Unknown SOB Uncoded 07/29/21 11:29 General Stated Complaint: Cellulitis PIOTR: 3 Review of Systems All systems reviewed & are unremarkable except as noted in HPI and below PFSH All Active Problems (Updated 07/29/21 @ 14:02 by CHASITY Linn) Abscess (Acute) Left shoulder pain (Acute) Nausea & vomiting (Acute) Depression (Chronic) Tendonitis of left rotator cuff (Acute) Biceps tendinitis of left shoulder (Acute) Anxiety (Chronic) Elevated blood pressure reading without diagnosis of hypertension (Acute) Decreased hearing of left ear (Acute) Insomnia (Chronic) Diabetes mellitus (Chronic 07/31/06) Medical History Biceps tendinitis of left shoulder Diabetes mellitus (07/31/06) Kidney stones Tendonitis of left rotator cuff Surgical History H/O circumcision [place] teeth extracted 04/20/15 Dr Cruz Family History Mother Diabetes Social History Smoking/Tobacco Use Status: Current-Occasional Tobacco Type: cigarettes Tobacco: How many years used: 2 Smoking risk assessment performed?: Yes Alcohol Intake: former Drug use: Never Substance use type: does not use Adopted: Yes Housing: apartment Communication Needs: None 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[employer] Current gender identity: male What type of physical activity do you participate in: walking and bicycling Duration: 30-45 minutes/day Frequency: 5-6 times per week Seatbelt use: always Drive intox or ride w/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 Abscess, fluctuant, induration, no testicular involvement, no crepitus, no necrosis, no involvement of penis, Mild inguinal lymphadenopathy Skin Other: abscess groin Neuro General: patient alert and patient oriented x3 Course Vital Signs Vital signs: Vital Signs Temperature 36.3 C L 07/29/21 12:01 Pulse 92 H 07/29/21 12:01 Respiratory Rate 16 07/29/21 12:01 Blood Pressure 124/73 07/29/21 12:01 Pulse Oximetry 99 07/29/21 12:01 Temperature 36.3 C L 07/29/21 12:01 Temperature Source Skin 07/29/21 12:01 Pulse 92 H 07/29/21 12:01 Respiratory Rate 16 07/29/21 12:01 Respiratory Effort 07/29/21 12:05 Blood Pressure 124/73 07/29/21 12:01 Pulse Oximetry 99 07/29/21 12:01 Oxygen Delivery Method Room Air 07/29/21 12:01 Oxygen Flow Rate 0 07/29/21 12:01 Pain Level 8 07/29/21 12:01 Lab/Test Results Lab/Test Results: 07/29/21 13:16 Groin - Left Wound Culture - Pending 07/29/21 13:16 Groin - Left Gram Stain - Pending Laboratory Tests Range/Units 07/29/21 07/29/21 12:21 12:21 WBC (4.4-10.8) 10^3/uL 8.86 RBC (4.36-5.78) 10^6/uL 5.14 Hgb (13.5-17.5) g/dL 13.9 Hct (40.0-50.0) % 44.2 MCV (80-95) fL 86.0 MCH (27.0-33.0) pg 27.0 MCHC (32.0-36.0) % 31.4 L RDW (11.8-14.1) % 11.8 Plt Count (130-400) 10^3/uL 273 MPV (8.0-11.0) fL 9.9 Immature Gran % 0.7 Neutrophils % 62.4 Lymphocytes % 25.5 Monocytes % 7.1 Eosinophils % 3.8 Basophils % 0.5 Nucleated RBC % % 0 Absolute Neutrophils (1.2-6.7) 10^3/uL 5.53 Absolute Lymphocytes (1.2-3.4) 10^3/uL 2.26 Absolute Monocytes (0.1-0.8) 10^3/uL 0.63 Absolute Eosinophils (0.0-0.7) 10^3/uL 0.34 Absolute Basophils (0.0-0.2) 10^3/uL 0.04 Sodium (136-145) mmol/L 135 L Potassium (3.5-5.1) mmol/L 4.9 Chloride (98-107) mmol/L 101 Carbon Dioxide (21.0-32.0) mmol/L 28.7 Anion Gap (3-11) mmol/L 5.3 BUN (7-18) mg/dL 9 Creatinine (0.70-1.30) mg/dL 1.1 Estimated GFR/1.73 m2 (mL/min/1.73m2) >= 60.00 Glucose (74-106) mg/dL 276 H Calcium (8.5-10.1) mg/dL 8.8 Total Bilirubin (0.2-1.0) mg/dL 0.2 AST (15-37) U/L 16 ALT (16-63) U/L 24 Alkaline Phosphatase (46-116) U/L 90 Total Protein (6.4-8.2) g/dL 7.6 Albumin (3.4-5.0) g/dL 3.2 L Procedures Abscess I/D Site: Other (left groin) Side (if applicable): Left Local Anesthetic: Lidocaine 1% Amount of anesthesia used (mL): 6 Technique: Needle Aspiration and Incised with #11 Blade Amount of fluid expressed (mL): 30 Irrigation: Yes Packing used?: Iodoform Complications: Pain
[2021-07-29] MEDS: Ketorolac 15 MG/ML VIAL IVP (14:01)
[2021-07-29 14:17] VITALS: BP 142/78; PULSE 86; RESP 16; O2SAT 98
== END 2021-07-29 14:16 | disposition home or self-care (01) ==
PROVIDERS: Emergency Provider Physician Assistant; PCP Internal Medicine
DX: L02.214 Cutaneous abscess of groin (principal); E11.9 Type 2 diabetes mellitus without complications
CPT/HCPCS: 10061; 36415; 80053; 87077; 96365; 96375; 85025; 87070; 87186; 87205; J0696; J1885; J2270

== ENCOUNTER 2021-07-31 11:04 | Emergency (ER) | payer BC, SELFPAY ==
[2021-07-31 11:10] VITALS: BP 129/86; PULSE 81; RESP 16; TEMP 36.6; O2SAT 97
--- NOTE | 2021-07-31 11:46 | W.ED.GENAD ---
Discharge Plan Disposition Patient Disposition: HOME Condition: Stable Discharge Details Clinical Impression: Abscess of groin, left Primary Care Provider: Balbina Matthews ED Provider: Raya Serrano Home Meds and New Rx's Prescriptions: Continued trazodone 300 mg tablet 600 mg PO QHS Qty: 180 RF: 3 glimepiride [Amaryl] 4 mg tablet 8 mg PO QAM Qty: 180 RF: 3 lisinopril 10 mg tablet 10 mg PO DAILY Qty: 90 RF: 3 naproxen 500 mg tablet 500 mg PO BID Qty: 60 RF: 0 metformin [Glucophage] 1,000 mg tablet 1,000 mg PO Q12 H Qty: 180 RF: 3 Trulicity 1.5 mg/0.5 mL pen injector 1.5 mg SC QWEEK Qty: 12 RF: 3 bupropion HCl [Wellbutrin XL] 150 mg tablet extended release 24 hr 150 mg PO QAM Qty: 90 RF: 3 No Action (DME) blood-glucose meter [Blood Glucose Monitoring] Kit See Rx Instructions .ROUTE .MEDSUPPLY Qty: 1 RF: 0 hydrocodone-acetaminophen 5-325 mg tablet See Rx Instructions PO Q6H MDD 40mg PRN (Reason: pain) Qty: 20 RF: 0 ceftriaxone 2 gram recon soln 2 g IV DAILY Qty: 1 RF: 3 (DME) lancets [FreeStyle Lancets] 28 gauge misc 1 ea Miscellaneous DAILY Qty: 300 RF: 3 (DME) pen needle, diabetic 32 gauge x 5/16 needle See Rx Instructions .ROUTE .MEDSUPPLY Qty: 100 RF: 11 Toujeo SoloStar U-300 Insulin 300 unit/mL (1.5 mL) insulin pen 18 unit subcut DAILY Qty: 6 RF: 3 Discharge Instructions Instructions: Abscess (ED) Additional Instructions: Keep your appointment with general surgery Monday at 11 AM. Continue taking the antibiotics as previously prescribed and applying warm compresses. Please take Tylenol or Ibuprofen with food every 4-6 hours as needed for pain and swelling. Follow up with primary care provider in 3-5 days. Return to ED sooner if any worsening or concerns. Increase oral fluids. Referrals: Balbina Matthews MD [Primary Care Provider] - Rimma Jackson DO [OSTEOPATHIC DOCTOR] - 08/02/21 11:00 am Discharge Data Discharge Date/Time-TO BE ENTERED AT DEPARTURE: 07/31/21 11:59 Medical Decision Making 30-year-old male presents to the ER with chief complaint of wound recheck status post I&D of an abscess to his left groin. Patient was seen on the and had some packing placed within the incision and drainage. Packing fell out yesterday. Wound is still draining. Just adjacent to the previous incision. Patient reports that he is still having some tenderness. He is taking the antibiotics as prescribed. He denies any fever chills or any worsening or complaints. I did encourage him to keep his appointment with general surgery on Monday at 11 AM. He verbalizes understanding. He has a past medical history of type 2 diabetes, hypertension. On exam, the area is indurated and still draining, no packing in place as patient reports it fell out the day before. No worsening appreciated by me. Discussed home care to continue take the antibiotics and warm compresses and to keep the appointment on Monday as previously scheduled. HPI General Mode of arrival: ambulatory. Date/Time Provider Initiated Documentation: 07/31/21 11:39. Limitations to Documentation: no limitations. Information obtained by: patient, RN notes reviewed and old records reviewed. HPI Narrative: 30-year-old male presents to the ER with chief complaint of wound recheck status post I&D of an abscess to his left groin. Patient was seen on the and had some packing placed within the incision and drainage. Packing fell out yesterday. Wound is still draining. Just adjacent to the previous incision. Patient reports that he is still having some tenderness. He is taking the antibiotics as prescribed. He denies any fever chills or any worsening or complaints. I did encourage him to keep his appointment with general surgery on Monday at 11 AM. He verbalizes understanding. He has a past medical history of type 2 diabetes, hypertension. Related Data Home Medications Medication Instructions Recorded Confirmed lancets 28 gauge #300 units 03/13/19 07/29/21 blood-glucose meter #1 each 09/17/19 07/29/21 naproxen 500 mg tablet 500 mg PO BID #60 tab 09/01/20 07/31/21 metformin 1,000 mg tablet 1,000 mg PO Q12 H #180 tab-cap 09/29/20 07/31/21 dulaglutide 1.5 mg/0.5 mL 1.5 mg SC QWEEK #12 syringe 10/23/20 07/31/21 subcutaneous pen injector pen needle, diabetic 32 gauge x #100 ea 11/18/20 07/29/2112/13 Toujeo SoloStar U-300 Insulin 300 18 unit SUBCUT DAILY #6 syrg NS 02/23/21 07/31/21 unit/mL (1.5 mL) subcutaneous pen trazodone 300 mg tablet 600 mg PO QHS #180 tab 02/23/21 07/31/21 bupropion HCl 150 mg 24 hr tablet, 150 mg PO QAM #90 tab 05/11/21 07/31/21 extended release glimepiride 4 mg tablet 8 mg PO QAM #180 tab 06/29/21 07/31/21 lisinopril 10 mg tablet 10 mg PO DAILY #90 tab 06/29/21 07/31/21 ceftriaxone 2 gram intravenous 2 g IV DAILY #1 ea 07/27/21 07/31/21 solution hydrocodone 5 mg-acetaminophen 325 See Rx Instructions PO Q6H PRN #20 07/27/21 07/31/21 mg tablet tab MDD 40mg Previous Rx's Medication Instructions Recorded lancets 28 gauge #300 units 03/13/19 naproxen 500 mg tablet 500 mg PO BID #60 tab 09/01/20 metformin 1,000 mg tablet 1,000 mg PO Q12 H #180 tab-cap 09/29/20 dulaglutide 1.5 mg/0.5 mL 1.5 mg SC QWEEK #12 syringe 10/23/20 subcutaneous pen injector pen needle, diabetic 32 gauge x #100 ea 11/18/2012/13 Toujeo SoloStar U-300 Insulin 300 18 unit SUBCUT DAILY #6 syrg NS 02/23/21 unit/mL (1.5 mL) subcutaneous pen trazodone 300 mg tablet 600 mg PO QHS #180 tab 02/23/21 bupropion HCl 150 mg 24 hr tablet, 150 mg PO QAM #90 tab 05/11/21 extended release glimepiride 4 mg tablet 8 mg PO QAM #180 tab 06/29/21 lisinopril 10 mg tablet 10 mg PO DAILY #90 tab 06/29/21 ceftriaxone 2 gram intravenous 2 g IV DAILY #1 ea 07/27/21 solution hydrocodone 5 mg-acetaminophen 325 See Rx Instructions PO Q6H PRN #20 07/27/21 mg tablet tab MDD 40mg Allergies Allergy/AdvReac Type Severity Reaction Status Date / Time imiquimod Allergy Intermediate Topical Verified 07/31/21 11:13 Irritation tramadol AdvReac Unknown Nausea Verified 07/31/21 11:13 oxycodone AdvReac Unverified 07/31/21 11:13 DUST Allergy Mild CONGESTED Uncoded 07/31/21 11:13 LOBL[place]LLY [place] Allergy Unknown SOB Uncoded 07/31/21 11:13 General Stated Complaint: Recheck PIOTR: 4 Review of Systems All systems reviewed & are unremarkable except as noted in HPI and below PFSH All Active Problems (Updated 07/31/21 @ 11:54 by Raya Serrano) Abscess (Acute) Abscess of groin, left (Acute) Left shoulder pain (Acute) Nausea & vomiting (Acute) Depression (Chronic) Tendonitis of left rotator cuff (Acute) Biceps tendinitis of left shoulder (Acute) Anxiety (Chronic) Elevated blood pressure reading without diagnosis of hypertension (Acute) Decreased hearing of left ear (Acute) Insomnia (Chronic) Diabetes mellitus (Chronic 07/31/06) Medical History Kidney stones Surgical History H/O circumcision [place] teeth extracted 04/20/15 Dr Cruz Family History Mother Diabetes Social History Smoking/Tobacco Use Status: Current-Occasional Tobacco Type: cigarettes Tobacco: How many years used: 2 Smoking risk assessment performed?: Yes Alcohol Intake: former Drug use: Never Substance use type: does not use Adopted: Yes Housing: apartment Communication Needs: None 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[employer] Current gender identity: male What type of physical activity do you participate in: walking and bicycling Duration: 30-45 minutes/day Frequency: 5-6 times per week Seatbelt use: always Drive intox or ride w/intox national dedicated truck driver: No Do you feel safe at home: Yes Do you feel safe in your relationship?: Yes Exam Male genitals images: 1. Indurated area, central incision noted with some drainage Course Vital Signs Vital signs: Vital Signs Temperature 36.6 C 07/31/21 11:10 Pulse 81 07/31/21 11:10 Respiratory Rate 16 07/31/21 11:10 Blood Pressure 129/86 07/31/21 11:10 Pulse Oximetry 97 07/31/21 11:10 Temperature 36.6 C 07/31/21 11:10 Temperature Source Oral 07/31/21 11:10 Pulse 81 07/31/21 11:10 Respiratory Rate 16 07/31/21 11:10 Respiratory Effort Non-Labored 07/31/21 11:16 Blood Pressure 129/86 07/31/21 11:10 Blood Pressure Position Sitting 07/31/21 11:10 Pulse Oximetry 97 07/31/21 11:10 Oxygen Delivery Method Room Air 07/31/21 11:10 Oxygen Flow Rate 0 07/31/21 11:10
== END 2021-07-31 11:59 | disposition home or self-care (01) ==
LOC: ER 12:35
PROVIDERS: Emergency Provider Registered Nurse Emergency; PCP Internal Medicine
DX: L02.214 Cutaneous abscess of groin (principal)

== ENCOUNTER 2021-08-02 16:42 | Outpatient (REF) | payer BC, SELFPAY ==
[2021-08-02 13:27] LABS: Source Nasal/Nares
[2021-08-02 19:37] LABS: COVID-19 PCR Negative (Negative)
== END 2021-08-02 16:43 | disposition home or self-care (01) ==
LOC: LBN 16:42
PROVIDERS: PCP Internal Medicine; Visit Provider Surgery
DX: Z20.822 Contact with and (suspected) exposure to COVID-19 (principal)
CPT/HCPCS: 87635

== ENCOUNTER 2021-08-03 06:12 | Day surgery (SDC) | payer BC, SELFPAY ==
[2021-08-03 06:33] VITALS: BP 128/82; PULSE 85; RESP 18; TEMP 36.6; O2SAT 99
[2021-08-03] MEDS: Lactated Ringers 1,000 ML 80 ML IV (06:51)
--- NOTE | 2021-08-03 06:54 | ANES.PREOP_ITS ---
General Info Date of Service Date Performed: 08/03/21 Height: 5 ft 7 in Weight: 92 kg Body Mass Index (BMI): 31.7 Surgical Procedure: Operation Date: 08/03/21 07:40 Proposed Procedures Side Surgeon p Incision & Drainage Lt Groin Abcess Left Rimma Jackson, Meds Allergies and Home Medications Allergies Allergy/AdvReac Type Severity Reaction Status Date / Time imiquimod Allergy Intermediate Topical Verified 08/03/21 06:19 Irritation tramadol AdvReac Unknown Nausea Verified 08/03/21 06:19 oxycodone AdvReac Other (See Unverified 08/03/21 06:19 Comment) DUST Allergy Mild CONGESTED Uncoded 08/03/21 06:19 LOBLOLLY [place] Allergy Unknown SOB Uncoded 08/03/21 06:19 Home Medication Medication Instructions Recorded lancets 28 gauge #300 units 03/13/19 blood-glucose meter #1 each 09/17/19 naproxen 500 mg tablet 500 mg PO BID #60 tab 09/01/20 metformin 1,000 mg tablet 1,000 mg PO Q12 H #180 tab-cap 09/29/20 dulaglutide 1.5 mg/0.5 mL 1.5 mg SC QWEEK #12 syringe 10/23/20 subcutaneous pen injector pen needle, diabetic 32 gauge x #100 ea 11/18/2012/13 Adolph Szymanski U-300 Insulin 300 18 unit SUBCUT DAILY #6 syrg NS 02/23/21 unit/mL (1.5 mL) subcutaneous pen trazodone 300 mg tablet 600 mg PO QHS #180 tab 02/23/21 bupropion HCl 150 mg 24 hr tablet, 150 mg PO QAM #90 tab 05/11/21 extended release glimepiride 4 mg tablet 8 mg PO QAM #180 tab 06/29/21 lisinopril 10 mg tablet 10 mg PO DAILY #90 tab 06/29/21 hydrocodone 5 mg-acetaminophen 325 See Rx Instructions PO Q6H PRN #20 07/27/21 mg tablet tab MDD 40mg Current Visit Medications: Current Medications Generic Name Dose Route Start Last Admin Trade Name Freq PRN Reason Stop Dose Admin Acetaminophen 1,000 mg 08/03/21 06:00 Acetaminophen 500 Mg Tab PO 09/01/21 23:59 PREOP PRASHANTH Gabapentin 600 mg 08/03/21 06:00 Gabapentin 300 Mg Cap PO 09/01/21 23:59 PREOP PRASHANTH Ringer's Solution 1,000 mls @ 80 mls/hr 08/03/21 06:00 08/03/21 06:51 IV 09/01/21 23:59 80 mls/hr INFUSION PRASHANTH Administration Ceftriaxone Sodium/Dextrose 1 gm in 50 mls @ 100 mls/hr 08/03/21 06:00 Rocephin IVPB 08/03/21 23:59 PREOP PRASHANTH IV Miscellaneous Supplies 1 each 08/03/21 06:00 Iv Access IV 09/01/21 23:59 DIRECTED PRASHANTH Sodium Chloride 0 ml 08/03/21 06:00 Normal Saline Flush 10 Ml Syr IV 09/01/21 23:59 PRN PRN Sodium Chloride 0 ml 08/03/21 06:00 Normal Saline 10 Ml Vial IJ 09/01/21 23:59 DIRECTED PRN Sterile Water 0 ml 08/03/21 06:00 Water,Injection,Sterile 10 Ml Vial IJ 09/01/21 23:59 DIRECTED PRN PFSH Active Problems Active Problems: Problem Status Onset Code Abscess of groin, left L02.214 Personal history of kidney stones ~01/2019 Z87.442 Depression F32.9 Tendonitis of left rotator cuff M75.82 Biceps tendinitis of left shoulder M75.22 Anxiety F41.9 Elevated blood pressure reading without diagnosis of hypertension R03.0 Decreased hearing of left ear H91.92 Insomnia G47.00 Diabetes mellitus 07/31/06 E11.9 Medical History Medical History Kidney stones Medical History Comments:: Pt states his mother also has delayed emergence. Pt reports h/o motion sickness post surgery and is requesting medications to assist with this after. Surgical History Surgical History H/O circumcision [place] teeth extracted 04/20/15 Dr Cruz Tobacco Smoking/Tobacco Use Status: Current-Occasional Tobacco Type: cigarettes Tobacco: How many years used: 2 Alcohol Alcohol Intake: current Alcohol intake frequency: a few times a month Substance Use Substance use: Never Substance use type: does not use Vital Signs and Lab Results Vital Signs Most Recent Vital Signs in EMR: Most Recent Vital Signs Temp Pulse Resp BP Pulse Ox 36.6 C 85 18 128/82 99 08/03/21 06:33 08/03/21 06:33 08/03/21 06:33 08/03/21 06:33 08/03/21 06:33 Point of Care Results Point of Care Results: Finger Stick Blood Glucose 182 08/03/21 06:39 Lab Results Blood Type / Crossmatch: No Data to Display Complete Blood Count: White Blood Count 8.86 10^3/uL (4.4-10.8) 07/29/21 12:21 07/29/21 Red Blood Count 5.14 10^6/uL (4.36-5.78) 07/29/21 12:21 07/29/21 Hemoglobin 13.9 g/dL (13.5-17.5) 07/29/21 12:21 07/29/21 Hematocrit 44.2 % (40.0-50.0) 07/29/21 12:21 07/29/21 Platelet Count 273 10^3/uL (130-400) 07/29/21 12:21 07/29/21 Complete Metabolic Panel: Sodium Level 135 mmol/L (136-145) L 07/29/21 12:21 07/29/21 Potassium Level 4.9 mmol/L (3.5-5.1) 07/29/21 12:21 07/29/21 Chloride Level 101 mmol/L (98-107) 07/29/21 12:07/29/21 Carbon Dioxide Level 28.7 mmol/L (21.0-32.0) 07/29/21 12:07/29/21 Blood Urea Nitrogen 9 mg/dL (7-18) 07/29/21 12:07/29/21 Creatinine 1.1 mg/dL (0.70-1.30) 07/29/21 12:07/29/21 Estimated GFR/1.73 m2 >= 60.00 (mL/min/1.73m2) 07/29/21 12:21 07/29/21 Calcium Level 8.8 mg/dL (8.5-10.1) 07/29/21 12:21 07/29/21 Albumin 3.2 g/dL (3.4-5.0) L 07/29/21 12:21 07/29/21 Glucose Level 276 mg/dL (74-106) H 07/29/21 12:21 07/29/21 Liver Function Panel: Alanine Aminotransferase (ALT/SGPT) 24 U/L (16-63) 07/29/21 12:21 07/29/21 Aspartate Amino Transf (AST/SGOT) 16 U/L (15-37) 07/29/21 12:21 07/29/21 Coagulation Panel: No Data to Display Cardiac Panel: No Data to Display Arterial Blood Gas: No Data to Display Venous Blood Gas: No Data to Display Pancreas Panel: No Data to Display Thyroid Panel: No Data to Display Infectious Disease: Coronavirus (COVID-19)(PCR) Negative (Negative) 08/02/21 11:50 08/02/21 Coronavirus 2019 Source Nasal/Nares 08/02/21 11:50 08/02/21 Blood Cultures: No Data to Display Toxicology Panel: No Data to Display Anesthesia Assessment and Plan Anesthesia History Personal History: PONV and Delayed Emergence Family History: Other Exercise Tolerance Exercise Tolerance: Metabolic Equivalents>4 Pertinent Negatives Pertinent Negatives: No Symptoms of GERD, No Major Cardiovascular Symptoms or Complaints, No Major Pulmonary Symptoms or Complaints and No History of CVA/TIA Cardiac & Pulmonary Exam Cardiac Exam: Normal S1/S2 Heart Sounds Pulmonary Exam: Clear Bilateral Breath Sounds Implantable Cardiac Device Does patient have a Pacemaker or an ICD?: No Airway Exam Known Difficult Airway: No Mallampati Class: 1 Mouth Opening: Normal (> 3cm) Thyromental Distance: Greater than 3 cm Neck Range of Motion: Full ROM Neck Circumference: Normal Teeth Condition: Normal Dentition ASA Classification ASA Score: ASA 3 Emergency Case?: No NPO Status NPO Status: NPO Clears >2 hours, Solids >8 hours Anesthesia Plan Resuscitation Status: Full Code Anesthesia Technique: General Anesthesia Airway Planned: Natural Airway Monitors Used: Standard Monitors
[2021-08-03] MEDS: Acetaminophen 500 MG TAB 1000 MG PO (06:55)
[2021-08-03] MEDS: Gabapentin 300 MG CAP 600 MG PO (06:55)
[2021-08-03 07:27] VITALS: BMI 31.7
[2021-08-03] MEDS: cefTRIAXone 1 GM/50 ML BAG IVPB (07:37)
--- NOTE | 2021-08-03 08:08 | W.PM.OP ---
Date of service: 08/03/21 Time of Service: 08:09 Operative Note Operative Note DATE OF PROCEDURE: 08/03/21 PRE-OP DIAGNOSIS: left groin abscess POST-OP DIAGNOSIS: same PROCEDURE: I&D SURGEON: Rimma Jackson PAIRING MACHINE OPERATOR: Leslee Feliciano ANESTHESIA TYPE: Local By Surgeon and General:No Airway Refer to Anesthesia Record ESTIMATED BLOOD LOSS: 5 PATHOLOGY: other COMPLICATIONS: None Patient was transported to: PACU Patient's condition: stable Procedure Description: Patient is here today for incision and drainage of his abscess in the left groin. Consent is obtained explaining risks and benefits of procedure including not limited to bleeding infection scarring recurrence and complications from the access. Patient was marked in same day. He is brought to the operative room suite and placed in the supine position. Anesthesia is administered per the department of anesthesia. Patient is prepped and draped in the usual sterile fashion using a Betadine scrub solution. Timeout is performed. 10 cc of quarter percent Marcaine with epi is used for local anesthetization. The previous incision is increased to 1 inch in size. Electrocautery is used to provide hemostasis. The abscess cavity is explored. By 4 x 4 cm. All the loculations are broken up. There is minimal drainage irrigated with a liter of saline. Cultures were taken, although patient has been on antibiotics. All necrotic tissue was debrided. It is packed with half-inch plain packing. Sterile dressings are applied. Patient tolerated procedure well felt and transferred recovery in stable condition. This document was created using voice activated software. It may contain errors
[2021-08-03 08:10] VITALS: BP 108/76; PULSE 84; RESP 18; TEMP 36.3; O2SAT 100
--- NOTE | 2021-08-03 08:13 | W.PM.DSUDISC ---
Discharge Plan Disposition Patient Disposition: HOME Condition: Good Discharge Details Reason For Visit: I&D abscess Attending Provider: Rimma Jackson Primary Care Provider: Balbina Matthews Home Meds and New Rx's Prescriptions: Continued (DME) blood-glucose meter [Blood Glucose Monitoring] Kit See Rx Instructions .ROUTE .MEDSUPPLY Qty: 1 RF: 0 trazodone 300 mg tablet 600 mg PO QHS Qty: 180 RF: 3 hydrocodone-acetaminophen 5-325 mg tablet See Rx Instructions PO Q6H MDD 40mg PRN (Reason: pain) Qty: 20 RF: 0 (DME) lancets [FreeStyle Lancets] 28 gauge misc 1 ea Miscellaneous DAILY Qty: 300 RF: 3 (DME) pen needle, diabetic 32 gauge x 5/16 needle See Rx Instructions .ROUTE .MEDSUPPLY Qty: 100 RF: 11 glimepiride [Amaryl] 4 mg tablet 8 mg PO QAM Qty: 180 RF: 3 lisinopril 10 mg tablet 10 mg PO DAILY Qty: 90 RF: 3 naproxen 500 mg tablet 500 mg PO BID Qty: 60 RF: 0 metformin [Glucophage] 1,000 mg tablet 1,000 mg PO Q12 H Qty: 180 RF: 3 Trulicity 1.5 mg/0.5 mL pen injector 1.5 mg SC QWEEK Qty: 12 RF: 3 Toujeo SoloStar U-300 Insulin 300 unit/mL (1.5 mL) insulin pen 18 unit subcut DAILY Qty: 6 RF: 3 bupropion HCl [Wellbutrin XL] 150 mg tablet extended release 24 hr 150 mg PO QAM Qty: 90 RF: 3 Discharge Instructions Additional Instructions: -regular carb control diet -ice -up and walking but no lifting over 10#'s or strenuous activity -F/u in surgery clinic at 10:30am Monday for packing removal -will need to do packing at home -no further antibiotics ibuprofen 600mg po every 6hrs w/ food norco as needed for breakthrough pain Activity:: see above Remove Dressings/Wound Care:: 24 hours Shower/Bathe:: Cover Diet:: Carb Counting Discharge Orders Discharge Orders: Discharge Order (Routine); Ordered 08/03/21 Ordered By: Rimma Jackson DS: Diagnosis Discharge Diagnosis (1) Abscess of groin, left: Status: Acute
--- NOTE | 2021-08-03 08:29 | W.ANESPOSTOP ---
Postoperative Evaluation Date, Time and Location Date Performed: 08/03/21 Time Performed: 08:29 Patient Location: Day Surgery Unit Vital Signs Most Recent Imported Vital Signs: Most Recent Vital Signs Temp Pulse Resp BP Pulse Ox 36.3 C L 84 18 108/76 100 08/03/21 08:10 08/03/21 08:10 08/03/21 08:10 08/03/21 08:10 08/03/21 08:10 Pain Score Most Recent Pain Score: Most Recent Pain Score Pain Level 0 08/03/21 06:33 Assessment Mental Status: Awake (Alert & Oriented to Patient Baseline) Airway and Respiratory Function: Patent airway with normal (patient baseline) respiratory exam Cardiovascular Function: Hemodynamically Stable Hydration Status: Adequately Hydrated Nausea & Vomiting: No Nausea or Vomiting Pain: Pain is tolerable per patient (4/10, tolerable but would like pain med, nurse informed) Peripheral Nerve Block: Patient did not receive a nerve block
[2021-08-03] MEDS: HYDROcodone 5/Acetaminophen 325 TAB PO (08:42)
--- NOTE | 2021-08-03 08:43 | PDOC.DSDIS_ITS ---
Discharge Plan Disposition Patient Disposition: HOME Condition: Good Discharge Details Reason For Visit: I&D abscess Attending Provider: Rimma Jackson Primary Care Provider: Balbina Matthews Home Meds and New Rx's Prescriptions: Continued (DME) blood-glucose meter [Blood Glucose Monitoring] Kit See Rx Instructions .ROUTE .MEDSUPPLY Qty: 1 RF: 0 trazodone 300 mg tablet 600 mg PO QHS Qty: 180 RF: 3 hydrocodone-acetaminophen 5-325 mg tablet See Rx Instructions PO Q6H MDD 40mg PRN (Reason: pain) Qty: 20 RF: 0 (DME) lancets [FreeStyle Lancets] 28 gauge misc 1 ea Miscellaneous DAILY Qty: 300 RF: 3 (DME) pen needle, diabetic 32 gauge x 5/16 needle See Rx Instructions .ROUTE .MEDSUPPLY Qty: 100 RF: 11 glimepiride [Amaryl] 4 mg tablet 8 mg PO QAM Qty: 180 RF: 3 lisinopril 10 mg tablet 10 mg PO DAILY Qty: 90 RF: 3 naproxen 500 mg tablet 500 mg PO BID Qty: 60 RF: 0 metformin [Glucophage] 1,000 mg tablet 1,000 mg PO Q12 H Qty: 180 RF: 3 Trulicity 1.5 mg/0.5 mL pen injector 1.5 mg SC QWEEK Qty: 12 RF: 3 T[employer]cot[employer] SoloStar U-300 Insulin 300 unit/mL (1.5 mL) insulin pen 18 unit subcut DAILY Qty: 6 RF: 3 bupropion HCl [Wellbutrin XL] 150 mg tablet extended release 24 hr 150 mg PO QAM Qty: 90 RF: 3 Discharge Instructions Additional Instructions: -regular carb control diet -ice -up and walking but no lifting over 10#'s or strenuous activity -F/u in surgery clinic at 10:30am Monday for packing removal * -will need to do packing at home * -no further antibiotics * ibuprofen 600mg po every 6hrs w/ food * norco as needed for breakthrough pain Stand Alone Forms: Scopolamine Skin Patch, Press Ganey (DSU) Activity:: see above Remove Dressings/Wound Care:: 24 hours Shower/Bathe:: Cover Diet:: Carb Counting Discharge Orders Discharge Orders: Discharge Order (Routine); Ordered 08/03/21 Ordered By: Rimma Jackson DS: Diagnosis Discharge Diagnosis (1) Abscess of groin, left: Status: Acute
[2021-08-03 08:50] VITALS: BP 123/83; PULSE 85; RESP 18; TEMP 36.4; O2SAT 99
--- NOTE | 2021-08-03 08:52 | PDOC.DSDIS_ITS ---
Discharge Plan Disposition Patient Disposition: HOME Condition: Good Discharge Details Reason For Visit: I&D abscess Attending Provider: Rimma Jackson Primary Care Provider: Balbina Matthews Home Meds and New Rx's Prescriptions: New ibuprofen 600 mg tablet 600 mg PO Q6H PRNQty: 60 RF: 6 hydrocodone-acetaminophen 5-325 mg tablet 1 tab PO Q6H PRNQty: 10 RF: 0 Continued (DME) blood-glucose meter [Blood Glucose Monitoring] Kit See Rx Instructions .ROUTE .MEDSUPPLY Qty: 1 RF: 0 trazodone 300 mg tablet 600 mg PO QHS Qty: 180 RF: 3 hydrocodone-acetaminophen 5-325 mg tablet See Rx Instructions PO Q6H MDD 40mg PRN (Reason: pain) Qty: 20 RF: 0 (DME) lancets [FreeStyle Lancets] 28 gauge misc 1 ea Miscellaneous DAILY Qty: 300 RF: 3 (DME) pen needle, diabetic 32 gauge x 5/16 needle See Rx Instructions .ROUTE .MEDSUPPLY Qty: 100 RF: 11 glimepiride [Amaryl] 4 mg tablet 8 mg PO QAM Qty: 180 RF: 3 lisinopril 10 mg tablet 10 mg PO DAILY Qty: 90 RF: 3 naproxen 500 mg tablet 500 mg PO BID Qty: 60 RF: 0 metformin [Glucophage] 1,000 mg tablet 1,000 mg PO Q12 H Qty: 180 RF: 3 Trulicity 1.5 mg/0.5 mL pen injector 1.5 mg SC QWEEK Qty: 12 RF: 3 Toubill[place] SoloStar U-300 Insulin 300 unit/mL (1.5 mL) insulin pen 18 unit subcut DAILY Qty: 6 RF: 3 bupropion HCl [Wellbutrin XL] 150 mg tablet extended release 24 hr 150 mg PO QAM Qty: 90 RF: 3 Discharge Instructions Additional Instructions: -regular carb control diet -ice -up and walking but no lifting over 10#'s or strenuous activity -F/u in surgery clinic at 10:30am Monday for packing removal * -will need to do packing at home * finish bactrim * ibuprofen 600mg po every 6hrs w/ food * norco as needed for breakthrough pain * will require daily packing changes Stand Alone Forms: Anesthesia Discharge Inst., Scopolamine Skin Patch, Sandeep Raphael (DSU) Activity:: see above Remove Dressings/Wound Care:: 24 hours Shower/Bathe:: Cover Diet:: Carb Counting Discharge Orders Discharge Orders: Discharge Order (Routine); Ordered 08/03/21 Ordered By: Rimma Jackson DS: Diagnosis Discharge Diagnosis (1) Abscess of groin, left: Status: Acute
== END 2021-08-03 10:02 | disposition home or self-care (01) ==
PROVIDERS: PCP Internal Medicine; Visit Provider Surgery
PROC: (CPT 10061; principal; 2021-08-03 07:30)
DX: L02.214 Cutaneous abscess of groin (principal); E11.9 Type 2 diabetes mellitus without complications; Z79.84 Long term (current) use of oral hypoglycemic drugs; F41.9 Anxiety disorder, unspecified; F32.A Depression, unspecified
CPT/HCPCS: 10061; 87077; 87070; 87075; 87186; 87205; J0696; J1885; J2405

== ENCOUNTER 2021-08-17 12:33 | Emergency (ER) | payer BC, SELFPAY ==
[2021-08-17] VITALS (37 sets, daily range): BP systolic 113–133; BP diastolic 75–95; PULSE 0–105; RESP 12–21; TEMP 36.7; O2SAT 97–100
--- NOTE | 2021-08-17 12:30 | RT.EKG_ITS ---
APPROVED REPORT Exam: Resting ECG Reason for Exam: dizzy Patient Location: E HR:97 bpm ECG Measurements Heart Rate 97 AXIS MA 142 P 12 QRSd 87 QRS 83 QT 335 T 13 QTc 425 Conclusion Sinus rhythm...normal P axis, V-rate 60- 99 ST elev, probable normal early repol pattern...ST elevation, age<55. Sinus. Early repol. No STEMI. I have reviewed and interpreted ECG and agree with software generated interpretation.
--- NOTE | 2021-08-17 13:00 | DI.RAD_ITS ---
Exam(s) XR CHEST 2V PA LATERAL EXAM: XR CHEST 2V PA LATERAL CLINICAL HISTORY: Dizziness, Recent Surgery. TECHNIQUE: 2D digital imaging was performed. COMPARISON: CR ABD FLAT UPRIGHT PA CHEST from 12/29/2013 FINDINGS: Heart size is normal. The mediastinum is not widened. Lungs are clear. No infiltrates nor pleural effusions. IMPRESSION: No acute pulmonary findings. DATA REPOSITORY: RADIATION DOSE DELIVERED:
[2021-08-17 13:01] LABS: Abs Immature Grans 0.06 10^3/uL (0.0-0.06); Absolute Basophil Count 0.06 10^3/uL (0.0-0.2); Absolute Eosinophil Count 0.31 10^3/uL (0.0-0.7); Absolute Lymphocyte Count 2.87 10^3/uL (1.2-3.4); Absolute Monocyte Count 0.41 10^3/uL (0.1-0.8); Absolute Neutrophil Count 4.66 10^3/uL (1.2-6.7); Basophils % 0.7; Eosinophils % 3.7; HCT 47.2 % (40.0-50.0); HGB 14.7 g/dL (13.5-17.5); Immature Grans % 0.7; Lymphocytes % 34.3; MCH 26.7 pg (27.0-33.0); MCHC 31.1 % (32.0-36.0); MCV 85.7 fL (80-95); Monocytes % 4.9; Neutrophils % 55.7; Nucleated RBC 0 %; Platelet Count 376 10^3/uL (130-400); RBC 5.51 10^6/uL (4.36-5.78); RDW-SD 37.7 fL; WBC 8.37 10^3/uL (4.4-10.8)
--- NOTE | 2021-08-17 13:03 | ED.GENADUL_ITS ---
Discharge Plan Disposition Patient Disposition: HOME Condition: Stable Discharge Details Clinical Impression: Vomiting, Dizziness Primary Care Provider: Balbina Matthews ED Provider: Raya Serrano Home Meds and New Rx's Prescriptions: Continued (DME) blood-glucose meter [Blood Glucose Monitoring] Kit See Rx Instructions .ROUTE .MEDSUPPLY Qty: 1 RF: 0 trazodone 300 mg tablet 600 mg PO QHS Qty: 180 RF: 3 (DME) lancets [FreeStyle Lancets] 28 gauge misc 1 ea Miscellaneous DAILY Qty: 300 RF: 3 (DME) pen needle, diabetic 32 gauge x 5/16 needle See Rx Instructions .ROUTE .MEDSUPPLY Qty: 100 RF: 11 glimepiride [Amaryl] 4 mg tablet 8 mg PO QAM Qty: 180 RF: 3 lisinopril 10 mg tablet 10 mg PO DAILY Qty: 90 RF: 3 naproxen 500 mg tablet 500 mg PO BID Qty: 60 RF: 0 metformin [Glucophage] 1,000 mg tablet 1,000 mg PO Q12 H Qty: 180 RF: 3 Trulicity 1.5 mg/0.5 mL pen injector 1.5 mg SC QWEEK Qty: 12 RF: 3 bupropion HCl [Wellbutrin XL] 150 mg tablet extended release 24 hr 150 mg PO QAM Qty: 90 RF: 3 ibuprofen 600 mg tablet 600 mg PO Q6H PRNQty: 60 RF: 6 hydrocodone-acetaminophen 5-325 mg tablet 1 tab PO Q6H PRNQty: 10 RF: 0 Toujeo SoloStar U-300 Insulin 300 unit/mL (1.5 mL) insulin pen 20 unit subcut DAILY RF: 0 Discharge Instructions Instructions: Dizziness (ED) Additional Instructions: At this time the cardiac work-up and COVID swab is negative. Please understand that I cannot rule out a blood clot in your lung without doing a chest CT. Please return to the ER for any worsening shortness of breath additional episodes or any concerns. Follow up with primary care provider in 3-5 days. Return to ED sooner if any worsening or concerns. Increase oral fluids. Please take Tylenol or Ibuprofen with food every 4-6 hours as needed for pain and swelling. Stand Alone Forms: Work Release Referrals: Balbina Matthews MD [Primary Care Provider] - 3 days Discharge Data Discharge Date/Time-TO BE ENTERED AT DEPARTURE: 08/17/21 16:56 Medical Decision Making 31-year-old male presents to the ER with chief complaint of increased dizziness today, he reports that he had to lay down while at work and he had an episode of vomiting. He also reports having a panic attack while on the phone with his PCP. He recently had incision and drainage on a groin abscess in the OR on 04 August. He reports a mild amount of drainage noted he denies any bleeding. He reports mild diarrhea, no abdominal pain no chest pain or shortness of breath. He does report coughing up some brown sputum in the mornings. He is vaccinated for COVID. He denies any fever or chills. Patient is a insulin-dependent diabetic, has a past medical history of hypertension, depression, anxiety. CBC largely within normal limits, CMP sodium slightly low at 134, magnesium is low at 1.4 glucose 231, D-dimer came back elevated at 683. This could be due to his recent surgery of his groin approximately 2 weeks ago. However will order chest CT due to the shortness of breath to rule out PE. Initial troponin within normal limits. Second troponin due approximately 1550. Magnesium 2 g IV piggyback ordered for magnesium of 1.4. CT chest rule out PE ordered. EXAM: XR CHEST 2V PA LATERAL FINDINGS: Heart size is normal. The mediastinum is not widened. Lungs are clear. No infiltrates nor pleural effusions. Spoke with patient regarding lab results chest x-ray and request for CT chest. After shared decision making with patient she decided against having the CT of his chest. He continues to be chest pain-free he reports his shortness of breath has resolved. He is willing to wait for his second troponin which we will draw now. He has been satting 97 to 99% on room air throughout his stay. HPI General Mode of arrival: ambulatory . Date/Time Provider Initiated Documentation: 08/17/21 12:34 . Limitations to Documentation: no limitations . Information obtained by: patient, RN notes reviewed and old records reviewed . HPI Narrative: 31-year-old male presents to the ER with chief complaint of increased dizziness today, he reports that he had to lay down while at work and he had an episode of vomiting. He also reports having a panic attack while on the phone with his PCP. He recently had incision and drainage on a groin abscess in the OR on 04 August. He reports a mild amount of drainage noted he denies any bleeding. He reports mild diarrhea, no abdominal pain no chest pain or shortness of breath. He does report coughing up some brown sputum in the mornings. He is vaccinated for COVID. He denies any fever or chills. Patient is a insulin-dependent diabetic, has a past medical history of hypertension, depression, anxiety. Related Data Home Medications Medication Instructions Recorded Confirmed lancets 28 gauge #300 units 03/13/19 08/17/21 blood-glucose meter #1 each 09/17/19 08/17/21 naproxen 500 mg tablet 500 mg PO BID #60 tab 09/01/20 08/17/21 metformin 1,000 mg tablet 1,000 mg PO Q12 H #180 tab-cap 09/29/20 08/17/21 dulaglutide 1.5 mg/0.5 mL 1.5 mg SC QWEEK #12 syringe 10/23/20 08/17/21 subcutaneous pen injector pen needle, diabetic 32 gauge x #100 ea 11/18/20 08/17/2112/13 trazodone 300 mg tablet 600 mg PO QHS #180 tab 02/23/21 08/17/21 bupropion HCl 150 mg 24 hr tablet, 150 mg PO QAM #90 tab 05/11/21 08/17/21 extended release glimepiride 4 mg tablet 8 mg PO QAM #180 tab 06/29/21 08/17/21 lisinopril 10 mg tablet 10 mg PO DAILY #90 tab 06/29/21 08/17/21 hydrocodone-acetaminophen 1 tab PO Q6H PRN #10 tab 08/03/21 08/17/21 ibuprofen 600 mg PO Q6H PRN #60 tab 08/03/21 08/17/21 Toujeclaudette SoloStar U-300 Insulin 20 unit SUBCUT DAILY 08/17/21 08/17/21 Previous Rx's Medication Instructions Recorded lancets 28 gauge #300 units 03/13/19 naproxen 500 mg tablet 500 mg PO BID #60 tab 09/01/20 metformin 1,000 mg tablet 1,000 mg PO Q12 H #180 tab-cap 09/29/20 dulaglutide 1.5 mg/0.5 mL 1.5 mg SC QWEEK #12 syringe 10/23/20 subcutaneous pen injector pen needle, diabetic 32 gauge x #100 ea 11/18/2012/13 trazodone 300 mg tablet 600 mg PO QHS #180 tab 02/23/21 bupropion HCl 150 mg 24 hr tablet, 150 mg PO QAM #90 tab 05/11/21 extended release glimepiride 4 mg tablet 8 mg PO QAM #180 tab 06/29/21 lisinopril 10 mg tablet 10 mg PO DAILY #90 tab 06/29/21 hydrocodone-acetaminophen 1 tab PO Q6H PRN #10 tab 08/03/21 ibuprofen 600 mg PO Q6H PRN #60 tab 08/03/21 Allergies Allergy/AdvReac Type Severity Reaction Status Date / Time imiquimod Allergy Intermediate Topical Verified 08/17/21 12:58 Irritation tramadol AdvReac Unknown Nausea Verified 08/17/21 12:58 oxycodone AdvReac dizziness Unverified 08/17/21 12:58 DUST Allergy Mild CONGESTED Uncoded 08/17/21 12:58 [place] Allergy Unknown SOB Uncoded 08/17/21 12:58 General Stated Complaint: Dizzy/Sync PIOTR: 2 Review of Systems All systems reviewed & are unremarkable except as noted in HPI and below Constitutional Constitutional: Denies fever(s) and Denies headache(s) ENT Ears, Nose, Mouth, and Throat: Denies headache(s) Neurologic Neurologic: Denies headache(s) PFSH All Active Problems (Updated 08/17/21 @ 16:19 by Raya Serrano) Vomiting (Acute) Dizziness (Acute) Abscess of groin, left (Acute) Depression (Chronic) Tendonitis of left rotator cuff (Acute) Biceps tendinitis of left shoulder (Acute) Anxiety (Chronic) Elevated blood pressure reading without diagnosis of hypertension (Acute) Decreased hearing of left ear (Acute) Insomnia (Chronic) Diabetes mellitus (Chronic 07/31/06) Medical History Kidney stones Surgical History H/O circumcision [place] teeth extracted 04/20/15 Dr Cruz Family History Mother Diabetes Social History Smoking/Tobacco Use Status: Current-Occasional Tobacco Type: cigarettes Tobacco: How many years used: 2 Smoking risk assessment performed?: Yes Alcohol Intake: current Alcohol Intake frequency: a few times a month Drug use: Never Substance use type: does not use Adopted: Yes Housing: apartment Communication Needs: None 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[employer] Current gender identity: male What type of physical activity do you participate in: walking and bicycling Duration: 30-45 minutes/day Frequency: 5-6 times per week Seatbelt use: always Drive intox or ride w/intox cdl company flatbed driver: No Do you feel safe at home: Yes Do you feel safe in your relationship?: Yes Additional Social history: Pt SO in room. Exam Narrative Exam Narrative: Constitutional: Alert and oriented x3. Appears stated age. Normal body habitus. Head: Normocephalic, no trauma. Eyes: Pupils PERRL, Red reflex noted, EOM's intact. Eyelids symmetrical without lesions, discharge, or swelling. ENT: Bilateral TM's WNL, External ear normal to inspection, no mastoid TTP, swelling, or erythema, Nasal turbinates WNL, no nasal discharge. Normal dentition, Posterior pharynx WNL, no exudate. Chest: RRR, Normal S1, S2, distal pulses intact. Resp: Lungs clear to auscultation bilaterally, no wheezes, rales, or rhonchi. Abdomen: Soft, non-distended, Normoactive bowel sounds all 4 quads. Musculoskeletal: Normal gait, 5/5 strength to all four extremities. Skin: No suspicious rashes or lesions. Capillary refill less than 2 sec. Neurologic: Cranial nerves II-XII intact. Alert and oriented x 3. Motor: No deficits noted. Sensory: Intact bilaterally all 4 extremities. Reflexes: DTR's intact bilaterally.. Hematologic/Lymphatic: No ecchymosis, no lymphadenopathy. Course Vital Signs Vital signs: Vital Signs Temperature 36.7 C 08/17/21 12:53 Pulse 102 H 08/17/21 12:53 Respiratory Rate 16 08/17/21 12:53 Blood Pressure 133/95 H 08/17/21 12:53 Pulse Oximetry 98 08/17/21 12:53 Temperature 36.7 C 08/17/21 12:53 Temperature Source Skin 08/17/21 12:53 Pulse 102 H 08/17/21 12:53 Respiratory Rate 16 08/17/21 12:53 Respiratory Effort 08/17/21 12:53 Blood Pressure 133/95 H 08/17/21 12:53 Blood Pressure Position Supine 08/17/21 12:53 Pulse Oximetry 98 08/17/21 12:53 Pain Level 0 08/17/21 12:53 Lab/Test Results Lab/Test Results: Laboratory Tests Range/Units 08/17/21 12:50 WBC (4.4-10.8) 10^3/uL 8.37 RBC (4.36-5.78) 10^6/uL 5.51 Hgb (13.5-17.5) g/dL 14.7 Hct (40.0-50.0) % 47.2 MCV (80-95) fL 85.7 MCH (27.0-33.0) pg 26.7 L MCHC (32.0-36.0) % 31.1 L RDW (11.8-14.1) % 12.0 Plt Count (130-400) 10^3/uL 376 D MPV (8.0-11.0) fL 10.0 Immature Gran % 0.7 Neutrophils % 55.7 Lymphocytes % 34.3 Monocytes % 4.9 Eosinophils % 3.7 Basophils % 0.7 Nucleated RBC % % 0 Absolute Neutrophils (1.2-6.7) 10^3/uL 4.66 Absolute Lymphocytes (1.2-3.4) 10^3/uL 2.87 Absolute Monocytes (0.1-0.8) 10^3/uL 0.41 Absolute Eosinophils (0.0-0.7) 10^3/uL 0.31 Absolute Basophils (0.0-0.2) 10^3/uL 0.06 PAWSS Have you Been Recently Intoxicated or Drunk Within the Last 30 days?: Yes Have you Ever Experienced Previous Episodes of Alcohol Withdrawal?: No Have you ever Experienced Withdrawal Seizures?: No Have you ever Experienced Delirium Tremens(DT)s?: No Have you ever undergone Alcohol Rehabilitation Treatment (i.e, inpt ot outpatient treatment programs)?: No Have you ever Experienced Blackouts?: No Have you ever Combined Alcohol with other Downers within the last 90 days?: No Have you ever Combined Alcohol with any other Substance of Abuse during the last 90 days?: No Positive Blood Alcohol level on Presentation? [PCS.BAL]: No Evidence of Increased Autonomic Activity (i.e. HR>120, tremor, sweating, agitation, nausea)?: No Result: 1
[2021-08-17 13:16] LABS: ALT 27 U/L (16-63); AST 14 U/L (15-37); Albumin 3.6 g/dL (3.4-5.0); Alkaline Phosphatase 108 U/L (46-116); Anion Gap 6.1 mmol/L (3-11); BUN 13 mg/dL (7-18); Bilirubin, Total 0.3 mg/dL (0.2-1.0); CO2 27.9 mmol/L (21.0-32.0); Chloride 100 mmol/L (98-107); Glucose 231 mg/dL (74-106); Magnesium 1.4 mg/dL (1.8-2.4); Potassium 4.5 mmol/L (3.5-5.1); Sodium 134 mmol/L (136-145); Total Protein 7.8 g/dL (6.4-8.2)
[2021-08-17] MEDS: Ondansetron 4 MG/2 ML VIAL IVP (13:23)
[2021-08-17] MEDS: Normal Saline 1,000 ML 1000 ML IV (13:23)
[2021-08-17 13:33] LABS: Troponin I < 50 ng/L (<or=60)
[2021-08-17] MEDS: MAGNESIUM SULFATE 2 GM/50 ML BAG IVPB (13:41)
[2021-08-17 15:06] LABS: D-Dimer 683 ng/mlFEU (<500)
--- NOTE | 2021-08-17 15:30 | RT.EKG_ITS ---
APPROVED REPORT Exam: Resting ECG Reason for Exam: shortness of breath Patient Location: E HR:91 bpm ECG Measurements Heart Rate 91 AXIS AZ 149 P 7 QRSd 86 QRS 88 QT 349 T 1 QTc 430 Conclusion Sinus rhythm...normal P axis, V-rate 60- 99. Sinus. Normal axis. No STEMI. I have reviewed and interpreted ECG and agree with software generated interpretation.
[2021-08-17 16:18] LABS: Troponin I < 50 ng/L (<or=60)
== END 2021-08-17 16:56 | disposition home or self-care (01) ==
PROVIDERS: Emergency Provider Registered Nurse Emergency; PCP Internal Medicine
DX: R11.10 Vomiting, unspecified (principal); R42 Dizziness and giddiness; E11.9 Type 2 diabetes mellitus without complications; Z79.4 Long term (current) use of insulin; R06.02 Shortness of breath; Z98.890 Other specified postprocedural states
CPT/HCPCS: 80053; 93005; 96361; 96365; 96366; 96375; 99284; 71046; 83735; 84484; 85025; 85379; 93010; J2405

== ENCOUNTER 2021-08-24 11:08 | Outpatient (REF) | payer BC, SELFPAY | END 2021-08-24 11:09 | disposition home or self-care (01) | LOC: LBN 11:08 | PROVIDERS: PCP Internal Medicine; Visit Provider Nurse Practitioner | DX: L02.416 Cutaneous abscess of left lower limb (principal) | CPT/HCPCS: 87077; 87070; 87186; 87205 ==

== ENCOUNTER 2022-03-29 02:00 | Emergency (ER) | payer BC, SELFPAY | END 2022-03-29 02:07 | PROVIDERS: PCP Internal Medicine | DX: Z53.21 Procedure and treatment not carried out due to patient leaving prior to being seen by health care provider (principal) ==

== ENCOUNTER 2022-10-20 04:16 | Outpatient (CLI) | payer BC, SELFPAY ==
[2022-10-21 17:16] LABS: C-Peptide 2.9 ng/mL (1.1 - 4.4)
== END 2022-10-20 04:17 | disposition home or self-care (01) ==
LOC: LBO 04:17
PROVIDERS: PCP Family Medicine; Visit Provider Family Medicine
DX: E11.9 Type 2 diabetes mellitus without complications (principal)
CPT/HCPCS: 36415; 84681

== ENCOUNTER 2023-06-14 15:03 | Outpatient (REF) | payer BC, SELFPAY ==
[2023-06-14 14:58] LABS: ALT 29 U/L (16-63); AST 15 U/L (15-37); Albumin 3.3 g/dL (3.4-5.0); Alkaline Phosphatase 127 U/L (46-116); Anion Gap 7.4 mmol/L (3-11); BUN 8 mg/dL (7-18); Bilirubin, Total 0.2 mg/dL (0.2-1.0); CO2 28.6 mmol/L (21.0-32.0); CREATININE 0.9 mg/dL (0.70-1.30); Calcium 9.1 mg/dL (8.5-10.1); Chloride 103 mmol/L (98-107); Estimated GFR 114.22 (mL/min/1.73m2); Glucose 264 mg/dL (74-106); Potassium 4.7 mmol/L (3.5-5.1); Sodium 139 mmol/L (136-145); Total Protein 6.9 g/dL (6.4-8.2)
== END 2023-06-14 15:04 | disposition home or self-care (01) ==
LOC: LBN 15:03
PROVIDERS: PCP Family Medicine; Visit Provider Physician Assistant Medical
DX: U07.1 COVID-19 (principal)
CPT/HCPCS: 80053

== ENCOUNTER 2023-11-12 14:22 | Emergency (ER) | payer BC, SELFPAY ==
[2023-11-12 14:25] VITALS: BP 135/91; PULSE 100; RESP 16; TEMP 36.4; O2SAT 98
--- NOTE | 2023-11-12 14:30 | DI.RAD_ITS ---
Exam(s) XR SHOULDER RT COMPLETE 2+V XR SCAPULA RT EXAM: XR SHOULDER RT COMPLETE 2+V and XR scapula RT CLINICAL HISTORY: Right shoulder pain. TECHNIQUE: 2D digital imaging was performed of the right scapula and shoulder. Seven images were ob tained. AP, Grashey, Y-view and axillary views were obtained. COMPARISON: CR,XR XR SHOULDER LT COMPLETE 2+V from 09/04/2020 CR XR CHEST 2V PA LATERAL from 08/17/2021 FINDINGS: BONES: No acute fracture is present. No bony destructive lesion is seen. There is an os acromiale. JOINTS: There is mild widening of the acromioclavicular joint. The clavicle is slightly elevated rel ative to the acromion suggesting some degree of AC ligament injury. The glenohumeral joint is well m aintained. SOFT TISSUE: The visualized lungs are clear. IMPRESSION: 1. No acute fracture. 2. There is widening and elevation of the clavicle relative to the acromion suspicious for a grade 1 AC joint separation. DATA REPOSITORY: RADIATION DOSE DELIVERED:
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
--- NOTE | 2023-11-12 14:45 | DI.RAD_ITS ---
Exam(s) XR CHEST 2V PA LATERAL EXAM: XR CHEST 2V PA LATERAL CLINICAL HISTORY: History of fall TECHNIQUE: 2D digital imaging was performed of the chest. Two images were obtained. PA and lateral views were obtained. COMPARISON: CR XR CHEST 2V PA LATERAL from 08/17/2021 FINDINGS: MEDIASTINUM: Normal. HEART: Normal. PULMONARY VASCULATURE: Normal. LUNGS: Clear. PLEURAL SPACE: No pleural effusion or pneumothorax. BONE:Within normal limits for the patient's age. OTHER FINDINGS:Normal. IMPRESSION: No acute pulmonary findings. DATA REPOSITORY: RADIATION DOSE DELIVERED:
[2023-11-12 15:29] VITALS: BP 139/100; PULSE 98; RESP 12; O2SAT 98
[2023-11-12] MEDS: Ibuprofen 600 MG TAB PO (15:29)
[2023-11-12] MEDS: Acetaminophen 500 MG TAB 1000 MG PO (15:29)
--- NOTE | 2023-11-12 15:58 | DI.VRAD_ITS ---
PROCEDURE INFORMATION: Exam: XR Right Shoulder Exam date and time: 11/12/2023 3:13 PM Age: 33 years old Clinical indication: Pain; Shoulder; Right TECHNIQUE: Imaging protocol: Radiologic exam of the right shoulder. Views: 2 or more views. COMPARISON: CR XR CHEST 2V PA LATERAL 11/12/2023 3:10 PM FINDINGS: Bones/joints: There appears to be some degree of resection of the right acromion with widening of the AC joint. No definite displacement noted. Glenohumeral articulation is intact. No evidence for fracture. Soft tissues: Normal. IMPRESSION: Mild widening of the AC joint. Clinical correlation requested with respect to prior surgery. No evidence for fracture. Dictated and Authenticated by: Trinidad Bush MD. Ordering:DIEGO Duran MD
--- NOTE | 2023-11-12 15:59 | DI.VRAD_ITS ---
PROCEDURE INFORMATION: Exam: XR Chest Exam date and time: 11/12/2023 3:10 PM Age: 33 years old Clinical indication: Other: History of fall TECHNIQUE: Imaging protocol: Radiologic exam of the chest. Views: 2 views. COMPARISON: CR XR CHEST 2V PA LATERAL 08/17/2021 3:15 PM FINDINGS: Lungs: Unremarkable. No consolidation. Pleural spaces: Unremarkable. No pleural effusion. No pneumothorax. Heart/Mediastinum: Unremarkable. No cardiomegaly. Bones/joints: Unremarkable. IMPRESSION: No evidence for acute posttraumatic abnormality. Dictated and Authenticated by: Trinidad Bush MD. Ordering:DIEGO Duran MD
--- NOTE | 2023-11-12 15:59 | DI.VRAD_ITS ---
PROCEDURE INFORMATION: Exam: XR Right Scapula Exam date and time: 11/12/2023 3:15 PM Age: 33 years old Clinical indication: Pain; Shoulder; Right TECHNIQUE: Imaging protocol: Radiologic exam of the right scapula. Complete exam. COMPARISON: CR XR SHOULDER RT COMPLETE 2+V 11/12/2023 3:13 PM FINDINGS: Bones/joints: Normal. Soft tissues: Normal. IMPRESSION: No evidence for acute posttraumatic abnormality. Dictated and Authenticated by: Trinidad Bush MD. Ordering:DIEGO Duran MD
--- NOTE | 2023-11-12 16:25 | NUR.NOTE ---
Referral faxed to PCP for AC joint separation, by the end of this week. Nursing Note:
== END 2023-11-12 16:28 | disposition home or self-care (01) ==
PROVIDERS: Emergency Provider Emergency Medicine; PCP Family Medicine
DX: V29.91XA Electric (assisted) bicycle rider (driver) (passenger) injured in unspecified traffic accident, initial encounter; S49.81XA Other specified injuries of right shoulder and upper arm, initial encounter; E11.9 Type 2 diabetes mellitus without complications
CPT/HCPCS: 99283; 71046; 73010; 73030; 99284

== ENCOUNTER 2023-12-17 02:20 | Emergency (ER) | payer BC, SELFPAY ==
[2023-12-17] VITALS (64 sets, daily range): BP systolic 144; BP diastolic 94; PULSE 93; RESP 16–18; TEMP 36.3; O2SAT 81–98
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
[2023-12-17] MEDS: ACETAMINOPHEN 1,000 MG/100 ML BTL 400 MG IVPB (03:03)
[2023-12-17] MEDS: Lactated Ringers 1,000 ML 1000 ML IV (03:03)
[2023-12-17] MEDS: Ondansetron 4 MG/2 ML VIAL (03:04)
[2023-12-17 03:05] LABS: Abs Immature Grans 0.03 10^3/uL (0.0-0.06); Absolute Basophil Count 0.03 10^3/uL (0.0-0.2); Absolute Eosinophil Count 0.26 10^3/uL (0.0-0.7); Absolute Lymphocyte Count 3.22 10^3/uL (1.2-3.4); Absolute Monocyte Count 0.37 10^3/uL (0.1-0.8); Basophils % 0.4 %; Eosinophils % 3.7 %; HCT 43.6 % (40.0-50.0); Immature Grans % 0.4 %; Lymphocytes % 45.3 %; MCH 27.7 pg (27.0-33.0); MCHC 32.1 % (32.0-36.0); MCV 86 fL (80-95); MPV 10.2 fL (8.0-11.0); Monocytes % 5.2 %; Platelet Count 274 10^3/uL (130-400); RBC 5.05 10^6/uL (4.36-5.78); RDW 12.4 % (11.8-14.1); RDW-SD 39.1 fL; WBC 7.11 10^3/uL (4.4-10.8)
[2023-12-17 03:29] LABS: ALT 31 U/L (16-63); AST 19 U/L (15-37); Albumin 3.6 g/dL (3.4-5.0); Alkaline Phosphatase 120 U/L (46-116); BUN 10 mg/dL (7-18); Bilirubin, Total 0.2 mg/dL (0.2-1.0); CREATININE 0.8 mg/dL (0.70-1.30); Calcium 7.8 mg/dL (8.5-10.1); Chloride 103 mmol/L (98-107); Estimated GFR 118.36 (mL/min/1.73m2); Glucose 274 mg/dL (74-106); Lipase 51 U/L (16-77); Potassium 4.2 mmol/L (3.5-5.1); Sodium 140 mmol/L (136-145); Total Protein 7.2 g/dL (6.4-8.2)
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
[2023-12-17] MEDS: Omnipaque 350 MG/ML 100 ML BTL IJ (04:18)
[2023-12-17] MEDS: Normal Saline - Diluent 50 ML VIAL IJ (04:19)
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
[2023-12-17] MEDS: Bacitracin 1 PACKET (07:00)
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
== END 2023-12-17 11:05 | disposition home or self-care (01) ==
PROVIDERS: Student in an Organized Health Care Education/Training Program; Emergency Provider Emergency Medicine; PCP Family Medicine
DX: S00.81XA Abrasion of other part of head, initial encounter (principal); S40.011A Contusion of right shoulder, initial encounter; S06.0X0A Concussion without loss of consciousness, initial encounter; F10.120 Alcohol abuse with intoxication, uncomplicated; E11.9 Type 2 diabetes mellitus without complications; Z79.4 Long term (current) use of insulin; Z79.85 Long-term (current) use of injectable non-insulin antidiabetic drugs; Z79.84 Long term (current) use of oral hypoglycemic drugs; Y90.8 Blood alcohol level of 240 mg/100 ml or more; V28.41XA Electric (assisted) bicycle driver injured in noncollision transport accident in traffic accident, initial encounter
CPT/HCPCS: 00123; 74177; 80053; 83690; 96365; 99285; 70450; 70486; 71260; 72125; 80320; 85025; 99284; J0131; J2405; J3490

== ENCOUNTER 2024-04-14 18:27 | Emergency (ER) | payer BC, SELFPAY ==
[2024-04-14 18:28] VITALS: BP 153/95; PULSE 86; RESP 12; TEMP 36.6; O2SAT 97
--- NOTE | 2024-04-14 18:55 | W.ED.GENAD ---
Discharge Plan Disposition Patient Disposition: Home Discharge Details Clinical Impression: Depression, Intentional self-harm by blunt object Primary Care Provider: Lorenzo Goldstein ED Provider: Abbi Erickson Home Meds and New Rx's Prescriptions: Continued (DME) blood-glucose meter [Blood Glucose Monitoring] Kit See Rx Instructions .ROUTE .MEDSUPPLY Qty: 1 Rx Instructions: Free Style Precision Chance Meter to test blood sugars (DME) lancets [FreeStyle Lancets] 28 gauge misc 1 ea Miscellaneous DAILY Qty: 300 3RF Rx Instructions: to test blood sugarTID, Dx E11.9, to maintain Hgb A1c less than 7 (DME) pen needle, diabetic 32 gauge x 5/16 needle See Rx Instructions .ROUTE .MEDSUPPLY Qty: 100 11RF Rx Instructions: As directed to keep A1c <7.0 bupropion HCl [Wellbutrin XL] 150 mg tablet extended release 24 hr 150 mg PO QAM Qty: 90 3RF insulin glargine U-300 conc [Toujeo SoloStar U-300 Insulin] 300 unit/mL (1.5 mL) insulin pen 25 unit subcut DAILY Qty: 4.5 3RF lisinopril 10 mg tablet 10 mg PO DAILY Qty: 90 3RF metformin 1,000 mg tablet 1,000 mg PO Q12 H Qty: 180 3RF Rx Instructions: TAKE 1 TABLET EVERY 12 HOURS FOR DIABETES glimepiride 4 mg tablet See Rx Instructions .ROUTE .COMPLEX Qty: 180 3RF Dose Instruction: TAKE TWO TABLETS BY MOUTH EVERY MORNING WITH BREAKFAST Rx Instructions: TAKE TWO TABLETS BY MOUTH EVERY MORNING WITH BREAKFAST trazodone 300 mg tablet See Rx Instructions .ROUTE .COMPLEX Qty: 180 3RF Dose Instruction: TAKE TWO TABLETS BY MOUTH AT BEDTIME Rx Instructions: TAKE TWO TABLETS BY MOUTH AT BEDTIME Trulicity 3 mg/0.5 mL pen injector 3 mg subcut QWEEK Qty: 2 3RF Discharge Instructions Additional Instructions: A referral has been made for therapist and case management. Please follow-up with JILLIAN tomorrow 04/15 at 6 PM and then again on Monday 04/16 at 6 PM Continue reaching out to your support system as needed. CCall the Crisis Lifeline at 988 or 911 if you have any thoughts of self harm or killing yourself. Return to emergency care immediately if you do not feel you can remain safe at home. HPI General Date/Time Provider Initiated Documentation: 04/14/24 18:31. HPI Narrative: Markie is a 34-year-old male with T2DM who presents to the emergency department today for evaluation of self-harm behaviors and depression. He reports that he has been feeling lonely and like he has been movement down to other people. Today he attempted to cut himself on his right leg with a knife because he wanted to feel normal, but was unable to break skin due to the knife being dull. He rode his bike back home and a friend and his boss convinced him to come to the emergency department for evaluation. He admits to passive SI but no plan, he does have a history of suicide attempts in the past but has not had inpatient psychiatric hospitalization. He denies HI, hallucinations, substance use, alcohol use. He reports he has recently been in good health, taking his diabetes medications as prescribed. Denies fever/chills, congestion, sore throat, chest pain, shortness of breath, change in p.o. intake, change in bowel or bladder function, rashes. He does not currently have a counselor, says he last saw one a few years ago. He does take an antidepressant prescribed by his PCP. Physical exam reassuring. Patient is alert and oriented, no acute distress. He does appear anxious, occasionally tearful. Superficial abrasions noted to right thigh. Moving all extremities equally. Easy work of breathing, lung sounds clear bilaterally. Normal heart sounds. Fingerstick 146. Patient medically cleared using SMART clearance. [facility] called for evaluation. I spoke with Lea Gonzalez, crisis counselor. Markie was agreeable to referral for case management and therapy. Plan to follow-up with check-in's tomorrow and the next day at 6 PM. Lea reports he has a lot of protective factors and things to look forward to, with supportive people in his life. He has had recent stressors which have contributed to his feeling of despair. He does not have any plan to harm himself. As Markie has good follow-up with no active suicidal ideation at this time, he does appear safe to be discharged at this time. I did discuss discharge instructions with patient, including importance of maintaining safety plan. He is agreeable to remaining safe at home, says he will call for help if he has any thoughts of harming himself. I did review the safety plan with him as discussed with Lea. He is agreeable with plan of care. Related Data Home Medications ?Medication ?Instructions ?Recorded ?Confirmed lancets 28 gauge (FreeStyle #300 multiple units 03/13/19 04/14/24 Lancets) blood-glucose meter (Blood Glucose #1 ea 09/17/19 04/14/24 Monitoring kit) pen needle, diabetic 32 gauge x #100 ea 01/04/22 04/14/2412/13 lisinopril 10 mg tablet 10 mg PO DAILY #90 tabs 06/24/23 04/14/24 bupropion HCl 150 mg 24 hr tablet, 150 mg PO QAM #90 tabs 07/20/23 04/14/24 extended release (Wellbutrin XL) metformin 1,000 mg tablet 1,000 mg PO Q12 H #180 tab-caps 09/25/23 04/14/24 glimepiride 4 mg tablet See Rx Instructions .Route 10/11/23 04/14/24 .COMPLEX #180 tabs insulin glargine U-300 conc 300 25 unit (0.0833 mL) subcut DAILY 11/20/23 04/14/24 unit/mL (1.5 mL) subcutaneous pen Diabetes. Goal A1c below 7.0 #4.5 (Toujeo SoloStar U-300 Insulin) mL trazodone 300 mg tablet See Rx Instructions .Route 01/01/24 04/14/24 .COMPLEX #180 tabs dulaglutide 3 mg/0.5 mL 3 mg (0.5 mL) subcut QWEEK #2 mL 02/20/24 04/14/24 subcutaneous pen injector (Trulicity) Previous Rx's ?Medication ?Instructions ?Recorded lancets 28 gauge (FreeStyle #300 multiple units 03/13/19 Lancets) pen needle, diabetic 32 gauge x #100 ea 01/04/2212/13 lisinopril 10 mg tablet 10 mg PO DAILY #90 tabs 06/24/23 bupropion HCl 150 mg 24 hr tablet, 150 mg PO QAM #90 tabs 07/20/23 extended release (Wellbutrin XL) metformin 1,000 mg tablet 1,000 mg PO Q12 H #180 tab-caps 09/25/23 glimepiride 4 mg tablet See Rx Instructions .Route 10/11/23 .COMPLEX #180 tabs insulin glargine U-300 conc 300 25 unit (0.0833 mL) subcut DAILY 11/20/23 unit/mL (1.5 mL) subcutaneous pen Diabetes. Goal A1c below 7.0 #4.5 (Toujeo SoloStar U-300 Insulin) mL trazodone 300 mg tablet See Rx Instructions .Route 01/01/24 .COMPLEX #180 tabs dulaglutide 3 mg/0.5 mL 3 mg (0.5 mL) subcut QWEEK #2 mL 02/20/24 subcutaneous pen injector (Trulicity) Allergies Allergy/AdvReac Type Severity Reaction Status Date / Time imiquimod Allergy Intermediate Topical Verified 04/14/24 18:33 Irritation tramadol AdvReac Unknown Nausea Verified 04/14/24 18:33 oxycodone AdvReac dizziness Verified 04/14/24 18:33 DUST Allergy Mild CONGESTED Uncoded 04/14/24 18:33 [place]LLY [place]REE Allergy Unknown SOB Uncoded 04/14/24 18:33 General Stated Complaint: PsychEval PIOTR: 2 Review of Systems Narrative: see HPI Exam Const General: cooperative, healthy appearing, comfortable, no acute distress, anxious and well hydrated Nutritional Appearance: average body habitus Resp Effort & Inspection: normal respiratory effort and able to speak in complete sentences Auscultation: clear to auscultation bilaterally Cardio Rate: regular rate Rhythm: regular rhythm Skin Trauma: abrasion (Superficial abrasions noted to right anterior thigh) Neuro Cognition: normal cognition Speech: speech normal Gait: normal gait Motor: muscle tone normal throughout Psych Appearance: grossly normal Mental Status: mental status grossly normal Speech and Movement: slowed movement Mood: dysthymic mood Affect: sad, dysphoric affect and blunted Attitude: cooperative Thought Process: normal Course Vital Signs Vital signs: Vital Signs Temperature 36.6 C 04/14/24 18:28 Pulse 86 04/14/24 18:28 Respiratory Rate 04/14/24 18:28 Blood Pressure 153/95 H 04/14/24 18:28 Pulse Oximetry 97 04/14/24 18:28 Temperature 36.6 C 04/14/24 18:28 Pulse 86 04/14/24 18:28 Respiratory Rate 12 04/14/24 18:28 Respiratory Effort Normal 04/14/24 18:34 Blood Pressure 153/95 H 04/14/24 18:28 Pulse Oximetry 97 04/14/24 18:28 Oxygen Delivery Method Room Air 04/14/24 18:28 Oxygen Flow Rate 0 04/14/24 18:28 Pain Level 0 04/14/24 18:28 Medical Decision Making Quality:SDOH Health Related Social Needs: No Data to Display PFSH All Active Problems (Updated 04/14/24 @ 20:30 by Abbi Perea) Intentional self-harm by blunt object (Acute) SARS-CoV-2 positive (Acute ~04/25/22) Blood glucose elevated (Acute) Noting am FBG 240 (vs usual 130) x ~ weeks.. Acanthosis nigricans due to type 2 diabetes mellitus (Acute) Tinea pedis of both feet (Acute) Plantar fasciitis, bilateral (Acute) Abscess of left thigh (Acute) Depression (Chronic) Tendonitis of left rotator cuff (Acute) Biceps tendinitis of left shoulder (Acute) Anxiety (Chronic) Elevated blood pressure reading without diagnosis of hypertension (Acute) Decreased hearing of left ear (Acute) Insomnia (Chronic) Diabetes mellitus (Chronic 07/31/06) Medical History Kidney stones Surgical History H/O circumcision [place] teeth extracted 04/20/15 Dr Cruz Family History Mother Diabetes Social History Smoking/Tobacco Use Status: Current-Occasional Tobacco Type: cigarettes Tobacco: How many years used: 2 Smoking risk assessment performed?: Yes Alcohol Intake: former Drug use: Binges Substance use type: does not use Adopted: Yes Housing: apartment Communication Needs: None 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[employer] Current gender identity: male What type of physical activity do you participate in: walking and bicycling Duration: 30-45 minutes/day Frequency: 5-6 times per week Seatbelt use: always Drive intox or ride w/intox waste collection driver: No Do you feel safe at home: Yes Do you feel safe in your relationship?: Yes
--- NOTE | 2024-04-14 23:27 | PDOC.MHCN ---
Date of service: 04/14/24 Time of Service: 23:28 PHQ-9 Over the last 2 weeks, how often have you been bothered by any of the following problems? 1. Little interest or pleasure in doing things: not at all 2. Feeling down, depressed, or hopeless: several days 3. Trouble falling or staying asleep, or sleeping too much: several days 4. Feeling tired or having little energy: several days 5. Poor appetite or overeating: several days 6. Feeling bad about yourself - or that you are a failure or have let yourself and your family down: several days 7. Trouble concentrating on things, such as reading the newspaper or watching television: not at all 8. Moving or speaking so slowly that other people could have noticed? - Or the opposite - being so fidgety or restless that you have been moving around a lot more than usual: several days 9. Thoughts that you would be better off or of hurting yourself in some way: several days Total score: 7 If you checked off any problems, how difficult have these problems made it for you to do your work, take care of things at home, or get along with other people?: not difficult at all Source: Developed by Drs. Jurgen Burnette, Meena Lewis, Mateus Rick and colleagues, with an educational luiza from [employer]. Suicide Severity Rate CSSRS Have you wished you were or wished you could go to sleep and not wake up?: Yes CSSRS2 Have you been thinking about how you might do this?: No Have you had these thoughts and had some intention of acting on them?: No Have you started to work out or worked out the details of how to kill yourself? Do you intend to carry out this plan?: No CSSRS3 Have you ever done anything, started to do anything or prepared to do anything to end your life?: Yes CSSRS4 Was this within the past three months?: No Screening Score Total Score: 4 Screening: Positive Mental Health Emergency Note Release [facility] release signed:: Yes Reason for Visit The client is unknown to [facility] and completed intake paperwork tonight. The client has never been hospitalized before. The client last saw his primary care physician at [facility] two months ago. The client reported that they only have missed appointments when there was a conflict with his work schedule. [facility] outreached due to passive SI and attempted cutting tonight. In the last 2 weeks has the pt presented for ES prior to today?: Unknown Client Information Client is: New Well Housed: Yes Non Suicidal Self Injury Current: Yes, cutting History: yes, cutting Safety Risk/Harm to Self or Others Current Ideation to Harm Self or Others: No Risk: Does risk to harm exist?: No Risk: Moderate Risk Duty to warn indicated: No Asssessment/Mental Status Appearance: Unremarkable Attitude: Cooperative Behavior: Unremarkable Speech: Normal Affect: Flat and Cogruent with mood Mood: Stressed, Depressed and Anxious Thought process: Unremarkable Hallucinations: No Delusions: No Attention: Unremarkable Perception: Not impaired Orientation: Fully orientated Memory: Intact Insight: Good Judgement: Good Neurovegetative Symptoms Sleep: No change (Hit or miss depending on medications. ) Appetitie: No change Interests: No change Energy: No change Libido: Not applicable Substance Use: Do you use nicotine?: No Have you used substances in the last 7 days?: No Additional Issues: Assaultive/Threatening Behavior: No Medical Concerns: No Client engaged in active self harm w/weapon: No Threatening to run away: No Child reported abuse/neglect: No Voluntarily presenting for services: Yes Domestic violence is a concern: No Extreme Psychosis or extreme behavior is present: No Impression The client is a 34-year-old black [place]ian male who uses he/him pronouns. He is employed full-time during the day and has a part-time job [employer]. He lives with a roommate in [facility]. All underrepresented identifiers were respected during this assessment. The client presents in hospital garb at [facility]. He appears well groomed, is cooperative and appropriate throughout the assessment. The client shows good insight and judgment. His eye contact is minimal based on the topic that's being discussed. The client reports his appetite is fine, however his sleep is a hit or miss. The client relies on trazodone to assist him sleeping, however, reports that he has been having more frequent night terrors lately. Client reports that he has a history of depression and anxiety. He reported that he attempted to cut himself today not with the intent to . However, the knife was dull and did not break the skin. 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 The client reports his symptoms have been more intense over the last couple weeks. He reports alone, helpless, useless, I have friends, but not a lot. 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 The client also reports that he has a roommate, however he does not feel that he can talk to that roommate about anything that's going on. The client reported that he was involved with a female recently, but that ended. This may have been the stressor that caused this current incident. The client identified that he probably needs his medication increased, however he has not made it a priority to outreach to his primary care physician due to work responsibilities. Plan/Disposition Recommended Disposition: [facility] Services [facility] Services: Therapy and Other (case management ). Plan: The client engaged in a safety plan to include outreaching to [facility] on 04/15 and 04/16 around 6 PM to let us know how he is doing. 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 I'm too scared to kill myself. I can't do that to my nieces and so many others who love me. Person reported agreement to plan: Yes Reports/communication Outcome discussed with: ED/Personnel
== END 2024-04-14 21:04 | disposition home or self-care (01) ==
PROVIDERS: Emergency Provider Nurse Practitioner Family; PCP Family Medicine
DX: S70.311A Abrasion, right thigh, initial encounter (principal); F32.9 Major depressive disorder, single episode, unspecified; X79.XXXA Intentional self-harm by blunt object, initial encounter
CPT/HCPCS: 00123; 36416; 82962; 96127; 99283

== ENCOUNTER 2024-06-06 11:51 | Outpatient (REF) | payer BC, SELFPAY ==
[2024-06-06 14:51] LABS: Abs Immature Grans 0.02 10^3/uL (0.0-0.06); Absolute Basophil Count 0.04 10^3/uL (0.0-0.2); Absolute Eosinophil Count 0.24 10^3/uL (0.0-0.7); Absolute Lymphocyte Count 2.52 10^3/uL (1.2-3.4); Absolute Monocyte Count 0.46 10^3/uL (0.1-0.8); Absolute Neutrophil Count 3.48 10^3/uL (1.2-6.7); Basophils % 0.6 %; Eosinophils % 3.6 %; HCT 47.6 % (40.0-50.0); HGB 14.9 g/dL (13.5-17.5); Immature Grans % 0.3 %; Lymphocytes % 37.3 %; MCH 27.4 pg (27.0-33.0); MCHC 31.3 % (32.0-36.0); MCV 88 fL (80-95); MPV 9.8 fL (8.0-11.0); Monocytes % 6.8 %; Neutrophils % 51.4 %; Platelet Count 279 10^3/uL (130-400); RBC 5.44 10^6/uL (4.36-5.78); RDW 12.3 % (11.8-14.1); RDW-SD 39.4 fL; WBC 6.76 10^3/uL (4.4-10.8)
[2024-06-06 15:20] LABS: ALT 45 U/L (16-63); AST 32 U/L (15-37); Albumin 3.7 g/dL (3.4-5.0); Alkaline Phosphatase 92 U/L (46-116); Anion Gap 5.8 mmol/L (3-11); BUN 6 mg/dL (7-18); CO2 32.2 mmol/L (21.0-32.0); Calcium 9.2 mg/dL (8.5-10.1); Chloride 104 mmol/L (98-107); Estimated GFR 100.03 (mL/min/1.73m2); Glucose 132 mg/dL (74-106); Lipase 44 U/L (16-77); Potassium 4.8 mmol/L (3.5-5.1); Sodium 142 mmol/L (136-145); Total Protein 7.4 g/dL (6.4-8.2)
== END 2024-06-06 11:52 | disposition home or self-care (01) ==
LOC: LBN 11:51
PROVIDERS: PCP Family Medicine; Visit Provider Physician Assistant Medical
DX: R11.10 Vomiting, unspecified (principal)
CPT/HCPCS: 80053; 83690; 85025

== ENCOUNTER 2025-04-25 10:10 | Emergency (ER) | payer BC, SELFPAY ==
[2025-04-25] VITALS (22 sets, daily range): BP systolic 136–154; BP diastolic 91–99; PULSE 70–93; RESP 17–24; TEMP 36.6; O2SAT 96–99
--- NOTE | 2025-04-25 10:00 | RT.EKG_ITS ---
APPROVED REPORT Exam: Resting ECG Reason for Exam: chest pain Patient Location: E HR:81 bpm ECG Measurements Heart Rate 81 AXIS AZ 152 P 4 QRSd 88 QRS 110 QT 365 T 17 QTc 423 Conclusion Sinus rhythm...normal P axis, V-rate 60- 99 Right axis deviation...QRS axis (100,269) No STEMI
--- NOTE | 2025-04-25 10:23 | W.ED.GENAD ---
Discharge Plan Disposition Patient Disposition: Home Discharge Details Clinical Impression: Atypical chest pain, Hypomagnesemia Primary Care Provider: Lorenzo Goldstein ED Provider: Jim Aguilar Home Meds and New Rx's Prescriptions: Continued (DME) blood-glucose meter [Blood Glucose Monitoring] Kit See Rx Instructions .ROUTE .MEDSUPPLY Qty: 1 Rx Instructions: Free Style Precision Chance Meter to test blood sugars (DME) lancets [FreeStyle Lancets] 28 gauge misc 1 ea Miscellaneous DAILY Qty: 300 3RF Rx Instructions: to test blood sugarTID, Dx E11.9, to maintain Hgb A1c less than 7 (DME) pen needle, diabetic 32 gauge x 5/16 needle See Rx Instructions .ROUTE .MEDSUPPLY Qty: 100 11RF Rx Instructions: As directed to keep A1c <7.0 lisinopril 10 mg tablet 10 mg PO DAILY Qty: 90 3RF insulin glargine [Lantus Solostar U-100 Insulin] 100 unit/mL (3 mL) insulin pen 28 unit subcut BID Qty: 15 6RF nystatin 100,000 unit/gram powder 1 applic TP BID Qty: 120 6RF clotrimazole 1 % cream 1 applic topical BID Qty: 45 0RF trazodone 300 mg tablet See Rx Instructions .ROUTE .COMPLEX Qty: 180 3RF Dose Instruction: TAKE TWO TABLETS BY MOUTH AT BEDTIME Rx Instructions: TAKE TWO TABLETS BY MOUTH AT BEDTIME metformin 1,000 mg tablet 1,000 mg PO Q12 H Qty: 180 3RF Rx Instructions: TAKE 1 TABLET EVERY 12 HOURS FOR DIABETES bupropion HCl 300 mg tablet extended release 24 hr 300 mg PO QAM Qty: 90 2RF Trulicity 4.5 mg/0.5 mL pen injector See Rx Instructions .ROUTE .COMPLEX Qty: 2 6RF Dose Instruction: INJECT UNDER THE SKIN ONCE WEEKLY Rx Instructions: INJECT UNDER THE SKIN ONCE WEEKLY glimepiride 4 mg tablet See Rx Instructions .ROUTE .COMPLEX Qty: 180 3RF Dose Instruction: TAKE TWO TABLETS BY MOUTH EVERY MORNING WITH BREAKFAST Rx Instructions: TAKE TWO TABLETS BY MOUTH EVERY MORNING WITH BREAKFAST Discharge Instructions Instructions: Low Magnesium Level, Chest Pain, Adult ED Additional Instructions: Please follow-up with your primary care provider regarding your visit to the emergency department today. Be sure to discuss results of all test performed here today to include radiology, and laboratory testing as well as results for any pending cultures. Should your symptoms worsen, or if you develop new concerning symptoms, please return immediately emergency department for further evaluation. HPI General Date/Time Provider Initiated Documentation: 04/25/25 10:23. HPI Narrative: MDM/Narrative: 35-year-old male with diabetes presenting with chest pain. Pain resolved, no positional changes. No recent illness, cough, cold, fever, chills, nausea, vomiting, or diarrhea. No history of cancer or blood clots. Differential Diagnosis: - Myocardial infarction: EKG normal, consistent with 2021. Blood tests for cardiac enzymes. - Electrolyte disturbances: Drinking only water for 25 days. Lab work including electrolytes. - PE: Unlikely patient is PERC negative. - Pneumonia/pneumothorax: Imaging ordered ED Course: - EKG obtained, results normal. - Blood tests ordered for cardiac enzymes. - Chest x-ray ordered. - Additional lab work ordered including electrolytes. Labs notable for hypomagnesemia, will replete with IV magnesium. Otherwise troponins are negative x 2, remainder labs are unremarkable. Clinical Impression: - Chest pain Disposition: - Follow-Up: Report recurrence of chest pain immediately for EKG. Patient Education: Report any recurrence of chest pain immediately. This document was created with assistance from [employer]. The patient consented to its use. Disposition: Home HPI: The patient is a 35-year-old male with a known history of diabetes, presenting with acute chest pain. The patient reports experiencing mild left shoulder pain last night, which he initially dismissed. Approximately one hour ago, he developed sudden, severe thoracic and abdominal pain accompanied by diaphoresis and intense discomfort, lasting for about 10 minutes. During this episode, he collapsed into a position. He denies any recent illnesses, respiratory symptoms such as cough or cold, pyrexia, chills, shoulder injuries, or unusual sleeping positions. He has not experienced similar symptoms previously and denies gastrointestinal symptoms such as nausea, vomiting, or diarrhea. The patient also reports experiencing dyspnea during the episode but has no history of pulmonary conditions. He denies recent lower extremity edema or pain. For the past 25 days, he has been consuming only water, with the exception of a small amount of apple juice yesterday, while continuing to eat solid food. He has no personal history of malignancy or thromboembolic events. The patient occasionally smokes cigars, approximately once a week for the past two months. He is adopted and is unaware of his biological family's medical history. ROS: Negative besides as mentioned above Exam: Vital signs: Reviewed. General Appearance: Alert and oriented. No acute distress. HEENT: NCAT, EOMI, not icteric. External ears normal. No rhinorrhea. Moist mucous membranes. Neck: Supple, full range of motion, no observable masses, No meningeal sign. Respiratory: Lung sounds clear bilaterally, no wheezes, rales, or rhonchi. Cardiovascular: Heart sounds normal, no murmurs, rubs, or gallops. Gastrointestinal: Abdomen soft, non-tender, no masses or organomegaly. Musculoskeletal: Left shoulder tenderness on palpation. Skin: Warm and dry, no rash. Neurological: Normal Gait, Grossly intact. Psychiatric: Appropriate for situation. Rhythm: NSR Rate: 81 [place]: Rightward axis axis Intervals: Normal intervals Other findings: No acute ST segment or T wave changes to suggest acute ischemia. EKG is unchanged as compared to prior EKG dated August 17, 2021 Labs: Laboratory Tests Range/Units 04/25/25 04/25/25 10:27 11:25 WBC (4.4-10.8) 10^3/uL 5.72 RBC (4.36-5.78) 10^6/uL 5.35 Hgb (13.5-17.5) g/dL 14.5 Hct (40.0-50.0) % 45.9 MCV (80-95) fL 86 MCH (27.0-33.0) pg 27.1 MCHC (32.0-36.0) % 31.6 L RDW (11.8-14.1) % 11.9 Plt Count (130-400) 10^3/uL 262 MPV (8.0-11.0) fL 9.6 Immature Gran % % 0.5 Neutrophils % % 50.7 Lymphocytes % % 36.7 Monocytes % % 6.8 Eosinophils % % 4.4 Basophils % % 0.9 Nucleated RBC % (0.0-0.3) % 0.0 Absolute Neutrophils (1.2-6.7) 10^3/uL 2.90 Absolute Lymphocytes (1.2-3.4) 10^3/uL 2.10 Absolute Monocytes (0.1-0.8) 10^3/uL 0.39 Absolute Eosinophils (0.0-0.7) 10^3/uL 0.25 Absolute Basophils (0.0-0.2) 10^3/uL 0.05 Sodium (136-145) mmol/L 140 Potassium (3.5-5.1) mmol/L 4.9 Chloride (98-107) mmol/L 103 Carbon Dioxide (21.0-32.0) mmol/L 32.9 H Anion Gap (3-11) mmol/L 4.1 BUN (7-18) mg/dL 11 Creatinine (0.70-1.30) mg/dL 0.9 Est GFR (CKD-EPI 2020) (mL/min/1.73m2) 112.81 Glucose (74-106) mg/dL 143 H Calcium (8.5-10.1) mg/dL 8.6 Magnesium (1.8-2.4) mg/dL 1.6 L Total Bilirubin (0.2-1.0) mg/dL 0.2 AST (15-37) U/L 20 ALT (16-63) U/L 33 Alkaline Phosphatase (46-116) U/L 113 Troponin I (<or=76) ng/L 7 7 Total Protein (6.4-8.2) g/dL 7.2 Albumin (3.4-5.0) g/dL 3.6 Radiology: Exam(s) XR PORTABLE CHEST AP EXAM: XR PORTABLE CHEST AP CLINICAL HISTORY: Chest pain TECHNIQUE: 2D digital imaging was performed. COMPARISON: CR,XR XR CHEST 2V PA LATERAL from 11/12/[address] CHEST/ABD/PEL W from 12/17/2023 FINDINGS: The exam is severely limited by expiratory lung goodwin. LUNGS: Grossly clear. No pleural abnormality seen. HEART: Can't be evaluated due to expiratory changes. AORTA: Normal diameter. BONES: Unremarkable for age. Soft tissues: Unremarkable. IMPRESSION: Limited exam. No acute findings. DATA REPOSITORY: RADIATION DOSE DELIVERED: Related Data Home Medications ?Medication ?Instructions ?Recorded ?Confirmed lancets 28 gauge (FreeStyle #300 multiple units 03/13/19 04/25/25 Lancets) blood-glucose meter (Blood Glucose #1 ea 09/17/19 04/25/25 Monitoring kit) pen needle, diabetic 32 gauge x #100 ea 01/04/22 04/25/2512/13 trazodone 300 mg tablet See Rx Instructions .Route 01/01/24 04/25/25 .COMPLEX #180 tabs lisinopril 10 mg tablet 10 mg PO DAILY #90 tabs 06/03/24 04/25/25 metformin 1,000 mg tablet 1,000 mg PO Q12 H #180 tab-caps 09/27/24 04/25/25 clotrimazole 1 % topical cream 1 applic topical BID #45 grams 12/24/24 04/25/25 insulin glargine 100 unit/mL (3 28 unit (0.28 mL) subcut BID #15 mL 12/24/24 04/25/25 mL) subcutaneous pen (Lantus Solostar U-100 Insulin) nystatin 100,000 unit/gram topical 1 applic topical BID tinea pedis 12/24/24 04/25/25 powder #120 grams bupropion HCl 300 mg 24 hr tablet, 300 mg PO QAM #90 tabs 01/13/25 04/25/25 extended release dulaglutide 4.5 mg/0.5 mL See Rx Instructions .Route 01/27/25 04/25/25 subcutaneous pen injector .COMPLEX #2 mL (Trulicity) glimepiride 4 mg tablet See Rx Instructions .Route 02/03/25 04/25/25 .COMPLEX #180 tabs Previous Rx's ?Medication ?Instructions ?Recorded lancets 28 gauge (FreeStyle #300 multiple units 03/13/19 Lancets) pen needle, diabetic 32 gauge x #100 ea 01/04/2212/13 trazodone 300 mg tablet See Rx Instructions .Route 01/01/24 .COMPLEX #180 tabs lisinopril 10 mg tablet 10 mg PO DAILY #90 tabs 06/03/24 metformin 1,000 mg tablet 1,000 mg PO Q12 H #180 tab-caps 09/27/24 clotrimazole 1 % topical cream 1 applic topical BID #45 grams 12/24/24 insulin glargine 100 unit/mL (3 28 unit (0.28 mL) subcut BID #15 mL 12/24/24 mL) subcutaneous pen (Lantus Solostar U-100 Insulin) nystatin 100,000 unit/gram topical 1 applic topical BID tinea pedis 12/24/24 powder #120 grams bupropion HCl 300 mg 24 hr tablet, 300 mg PO QAM #90 tabs 01/13/25 extended release dulaglutide 4.5 mg/0.5 mL See Rx Instructions .Route 01/27/25 subcutaneous pen injector .COMPLEX #2 mL (Trulicity) glimepiride 4 mg tablet See Rx Instructions .Route 02/03/25 .COMPLEX #180 tabs Allergies Allergy/AdvReac Type Severity Reaction Status Date / Time house dust Allergy Intermediate congestion Verified 04/25/25 10:17 imiquimod Allergy Intermediate Topical Verified 04/25/25 10:17 Irritation tree and shrub pollen Allergy Intermediate congestion Verified 04/25/25 10:17 tramadol AdvReac Unknown Nausea Verified 04/25/25 10:17 oxycodone AdvReac dizziness Verified 04/25/25 10:17 General Stated Complaint: Chest Pain PIOTR: 3 Course Vital Signs Vital signs: Vital Signs Temperature 36.6 C 04/25/25 10:09 Pulse 70 04/25/25 10:09 Respiratory Rate 18 04/25/25 10:09 Blood Pressure 140/99 H 04/25/25 10:09 Pulse Oximetry 99 04/25/25 10:09 Temperature 36.6 C 04/25/25 10:09 Pulse 70 04/25/25 10:09 Respiratory Rate 18 04/25/25 10:09 Respiratory Effort Normal 04/25/25 10:16 Respiratory Depth Normal 04/25/25 10:16 Respiratory Pattern Normal 04/25/25 10:16 Blood Pressure 140/99 H 04/25/25 10:09 Pulse Oximetry 99 04/25/25 10:09 Oxygen Delivery Method Room Air 04/25/25 10:09 Oxygen Flow Rate 0 04/25/25 10:09 Pain Level 0 04/25/25 10:09 [facility] All Active Problems (Updated 04/25/25 @ 12:18 by Jim Aguilar MD) Hypomagnesemia (Acute) Atypical chest pain (Acute) SARS-CoV-2 positive (Acute ~04/25/22) Blood glucose elevated (Acute) Noting am FBG 240 (vs usual 130) x ~ weeks.. Acanthosis nigricans due to type 2 diabetes mellitus (Acute) Tinea pedis of both feet (Acute) Plantar fasciitis, bilateral (Acute) Abscess of left thigh (Acute) Depression (Chronic) Tendonitis of left rotator cuff (Acute) Biceps tendinitis of left shoulder (Acute) Anxiety (Chronic) Elevated blood pressure reading without diagnosis of hypertension (Acute) Decreased hearing of left ear (Acute) Insomnia (Chronic) Diabetes mellitus (Chronic 07/31/06) Medical History Kidney stones Surgical History H/O circumcision [place] teeth extracted 04/20/15 Dr Cruz Family History Mother Diabetes Social History (Updated 12/24/24 @ 15:03 by Danita Davis LPN) Smoking/Tobacco Use Status: Current-Occasional Tobacco Type: cigarettes Tobacco: How many years used: 2 Smoking risk assessment performed?: Yes Alcohol Intake: former Drug use: Binges Substance use type: does not use Adopted: Yes Housing: apartment Communication Needs: None 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[employer] Current gender identity: male What type of physical activity do you participate in: walking and bicycling Duration: 30-45 minutes/day Frequency: 5-6 times per week Seatbelt use: always Drive intox or ride w/intox train driver: No Do you feel safe at home: Yes Do you feel safe in your relationship?: Yes
[2025-04-25 10:31] LABS: Abs Immature Grans 0.03 10^3/uL (0.0-0.06); HCT 45.9 % (40.0-50.0); HGB 14.5 g/dL (13.5-17.5); Immature Grans % 0.5 %; MCH 27.1 pg (27.0-33.0); MCHC 31.6 % (32.0-36.0); MCV 86 fL (80-95); MPV 9.6 fL (8.0-11.0); Platelet Count 262 10^3/uL (130-400); RBC 5.35 10^6/uL (4.36-5.78); RDW 11.9 % (11.8-14.1); RDW-SD 37.3 fL; WBC 5.72 10^3/uL (4.4-10.8)
[2025-04-25 10:50] LABS: ALT 33 U/L (16-63); AST 20 U/L (15-37); Albumin 3.6 g/dL (3.4-5.0); Alkaline Phosphatase 113 U/L (46-116); Anion Gap 4.1 mmol/L (3-11); BUN 11 mg/dL (7-18); Bilirubin, Total 0.2 mg/dL (0.2-1.0); CO2 32.9 mmol/L (21.0-32.0); Calcium 8.6 mg/dL (8.5-10.1); Chloride 103 mmol/L (98-107); Estimated GFR 112.81 (mL/min/1.73m2); Glucose 143 mg/dL (74-106); Magnesium 1.6 mg/dL (1.8-2.4); Potassium 4.9 mmol/L (3.5-5.1); Sodium 140 mmol/L (136-145); Total Protein 7.2 g/dL (6.4-8.2); Troponin I 7 ng/L (<or=76)
--- NOTE | 2025-04-25 10:56 | DI.RAD_ITS ---
Exam(s) XR PORTABLE CHEST AP EXAM: XR PORTABLE CHEST AP CLINICAL HISTORY: Chest pain TECHNIQUE: 2D digital imaging was performed. COMPARISON: CR,XR XR CHEST 2V PA LATERAL from 11/12/[address] CHEST/ABD/PEL W from 12/17/2023 FINDINGS: The exam is severely limited by expiratory lung goodwin. LUNGS: Grossly clear. No pleural abnormality seen. HEART: Can't be evaluated due to expiratory changes. AORTA: Normal diameter. BONES: Unremarkable for age. Soft tissues: Unremarkable. IMPRESSION: Limited exam. No acute findings. DATA REPOSITORY: RADIATION DOSE DELIVERED:
[2025-04-25] MEDS: MAGNESIUM SULFATE 2 GM/50 ML BAG IV_INF (11:47)
[2025-04-25 11:50] LABS: Troponin I 7 ng/L (<or=76)
--- NOTE | 2025-04-25 13:01 | DI.RAD_ITS ---
Exam(s) XR PORTABLE CHEST AP EXAM: XR PORTABLE CHEST AP CLINICAL HISTORY: at radiology request TECHNIQUE: 2D digital imaging was performed. COMPARISON: CR XR PORTABLE CHEST AP from 04/25/2025 FINDINGS: LUNGS: Suboptimally inflated but clear. No pleural abnormality seen. HEART: Normal size. AORTA: Normal diameter. BONES: Unremarkable for age. Soft tissues: Unremarkable. IMPRESSION: No acute findings. DATA REPOSITORY: RADIATION DOSE DELIVERED:
== END 2025-04-25 13:10 | disposition home or self-care (01) ==
PROVIDERS: Emergency Provider General Practice; PCP Family Medicine
DX: Z72.0 Tobacco use; R07.89 Other chest pain; E83.42 Hypomagnesemia
CPT/HCPCS: 36415; 80053; 93005; 96365; 96366; 99284; 71045; 83735; 84484; 85025; 93010; J3475

== ENCOUNTER 2025-05-05 02:13 | Outpatient (CLI) | payer BC, SELFPAY ==
--- NOTE | 2025-05-05 05:15 | ETT_ITS ---
APPROVED REPORT Exam: Exercise Treadmill Patient Location: Out-Patient Room/Bed: Stress Nurse: Jennifer Medellin RN Ordering Provider:LINO GREGORY, Contact Number: [phone] BMI: 32.88 Baseline Rhythm: Sinus Rhyhtm. Indications: Atypical Chest Pain. Medical History Medical History: Anxiety; Depression; Diabetes Mellitus Type 2; Increased BP's; Hypomagnesemia. Cardiac Medications: Mounjaro; Trazodone; Lisinopril; Metformin; Insulin Glargine; Bupropion; Glimepiride. Allergies: Oxycodone; Tramadol. Cardiac Risk Factors: Diabetes Mellitus Type 2; Occasional Smoker; Obesity. Previous Cardiac Procedures: None. Pretest Chest Pain Characteristics: None. Exercise History: Indeterminate. Physical Disabilities: None. Lung Sounds: Clear bilaterally throughout, anterior and posterior. Heart Sounds: S1 and S2 auscultated. Stress Test Details Test: Exercise stress testing was performed using a Benjamin protocol. Rest Stress HR Resting HR Supine: 81 bpm Max Heart Rate (APMHR): 183 bpm Resting HR Standin bpm Target HR (85% APMHR): 156 bpm Max HR Achieved: 162 bpm % of APMHR: 89 Recovery HR: 101 bpm HR response to stress: Normal HR response to stress. BP Resting BP Supine: 140/94 mmHg Resting BP Standin/98 mmHg Max BP: 180/100 mmHg Recovery BP: 140/98 mmHg BP response to stress: Normal blood pressure response to stress. ECG Resting ECG: Sinus Rhythm. Ectopy: None. Stress ECG: Sinus Tachycardia. ST Change: No significant ST segment changes noted. Arrhythmia: Rare PVC's. Recovery ECG: Sinus Tachycardia. Recovery ST Change: No significant ST segment changes noted. Recovery Arrhythmia: Rare PVC's. Clinical Reason for Termination: Target HR Achieved, Dyspnea, Fatigue. Stress Symptoms: Dyspnea, General Fatigue. Exercise duration: 09 min26 sec Highest Stage Reached: Stage 4: 4.2 mph at 16% grade. Exercise capacity: 10.89 METs Angina Score: None Rate Pressure Product: 08095 Stress ECG Conclusion 1. Resting electrocardiogram showed right axis deviation, late transition 2. Patient exercised on the Benjamin protocol and completed a workload of 11 METS 3. Normal heart rate and blood pressure response to exercise. The patient achieved 89% of maximal predicted heart rate for age 4. There was no electrocardiographic evidence of myocardial ischemia 5. There were no significant dysrhythmias Stress Test Summary STAGE Time (mins) Speed (mph) Grade (%) HR BP SpO2 SYMPTOMS METS Supine 81 140/94 95 Standing 97 130/98 96 1 3 1.7 10 113 158/98 94 Pt. c/o mild shortness of breath. 4.5 2 6 2.5 12 129 180/100 95 Pt. c/o mild shortness of breath. 7 3 9 3.4 14 146 97 Pt. c/o moderate shortness of breath. 10 4 12 4.2 16 160 96 Pt. c/o moderate shortness of breath and generalized fatigue. Pt. requesting to stop the stress test. 13 1 min recovery 140 180/90 98 Pt. c/o moderate shortness of breath. 3 min recovery 106 176/100 98 Pt. c/o mild shortness of breath. 6 min recovery 101 140/98 97 Pt. states that all shortness of breath has resolved back to baseline. Pt. performed an exercise treadmill stress test using the Benjamin protocol. Stress test was stopped when pt. reached a heart rate higher than the target heart rate, when pt. c/o moderate shortness of breath and fatigue, and when pt. requested to stop the stress test. Pt. stated that all shortness of breath had resolved back to baseline prior to leaving the Stress Lab. Pt. was conversing pleasantly with nursing staff upon leaving the Stress Lab and left ambulatory in no apparent distress.
== END 2025-05-05 02:33 ==
LOC: DI 02:13
PROVIDERS: PCP Family Medicine; Visit Provider Internal Medicine Cardiovascular Disease
DX: R07.89 Other chest pain (principal)
CPT/HCPCS: 93017

== ENCOUNTER 2025-05-30 07:20 | Emergency (ER) | payer BC, SELFPAY ==
[2025-05-30 07:23] VITALS: BP 133/91; PULSE 99; RESP 18; TEMP 36.5; O2SAT 99
--- NOTE | 2025-05-30 07:34 | W.ED.GENAD ---
Discharge Plan Disposition Patient Disposition: Home Condition: Stable Discharge Details Clinical Impression: Right foot sprain Primary Care Provider: Lorenzo Goldstein ED Provider: Merna Gomes Home Meds and New Rx's Prescriptions: No Action (DME) blood-glucose meter [Blood Glucose Monitoring] Kit See Rx Instructions .ROUTE .MEDSUPPLY Qty: 1 Rx Instructions: Free Style Precision Chance Meter to test blood sugars (DME) lancets [FreeStyle Lancets] 28 gauge misc 1 ea Miscellaneous DAILY Qty: 300 3RF Rx Instructions: to test blood sugarTID, Dx E11.9, to maintain Hgb A1c less than 7 (DME) pen needle, diabetic 32 gauge x 5/16 needle See Rx Instructions .ROUTE .MEDSUPPLY Qty: 100 11RF Rx Instructions: As directed to keep A1c <7.0 lisinopril 10 mg tablet 10 mg PO DAILY Qty: 90 3RF insulin glargine [Lantus Solostar U-100 Insulin] 100 unit/mL (3 mL) insulin pen 28 unit subcut BID Qty: 15 6RF clotrimazole 1 % cream 1 applic topical BID Qty: 45 0RF Mounjaro 2.5 mg/0.5 mL pen injector 2.5 mg subcut QWEEK Qty: 2 0RF Rx Instructions: for 4 weeks nystatin 100,000 unit/gram powder 1 applic TP BID Qty: 120 6RF trazodone 300 mg tablet See Rx Instructions .ROUTE .COMPLEX Qty: 180 3RF Dose Instruction: TAKE TWO TABLETS BY MOUTH AT BEDTIME Rx Instructions: TAKE TWO TABLETS BY MOUTH AT BEDTIME metformin 1,000 mg tablet 1,000 mg PO Q12 H Qty: 180 3RF Rx Instructions: TAKE 1 TABLET EVERY 12 HOURS FOR DIABETES bupropion HCl 300 mg tablet extended release 24 hr 300 mg PO QAM Qty: 90 2RF glimepiride 4 mg tablet See Rx Instructions .ROUTE .COMPLEX Qty: 180 3RF Dose Instruction: TAKE TWO TABLETS BY MOUTH EVERY MORNING WITH BREAKFAST Rx Instructions: TAKE TWO TABLETS BY MOUTH EVERY MORNING WITH BREAKFAST Discharge Instructions Instructions: Foot Sprain (DC) Additional Instructions: You were seen in the emergency department today for evaluation of a foot injury. In our department you had a full physical examination performed, and had an x-ray that did not show any broken bones or other bony abnormalities in the foot. You likely sustained a sprain, which is an injury to the ligaments that support the foot. I have provided you with a walking boot which you can wear for comfort, especially when you are up and about. It is not dangerous for you to bear weight on your foot but we want you to be able to do so comfortably. Please use therapeutic dosing of Tylenol (acetaminophen) & Advil (ibuprofen) in an alternating fashion as follows: Take 1000mg of Tylenol every 6 hours without missing doses- that is 4 times per day. Detention in between the Tylenol doses, take 600mg of Advil also on a 6 hour schedule, that is also 4 times per day. With this strategy, you will be taking something for fever/pain as often as every 3 hours. The daily maximum dosing of Tylenol is 4000mg, and the daily maximum dosing of Advil is 2400mg. Please note that some common cold medications & prescription pain medications may contain acetaminophen and you need to read OTC drug labels and factor that in to maximum daily doses. Please continue to use ice and elevation for management of swelling. The boot can come off during bathing, resting, sleeping, etc. The vast majority of people do most of their healing in the first 1 to 2 weeks after an injury such as this one. Please follow-up with your primary care provider in the next few days to discuss this visit and any symptoms that change, worsen, or persist. Thank you for allowing us to be part of your care. HPI General Mode of arrival: ambulatory. Date/Time Provider Initiated Documentation: 05/30/25 07:30. Limitations to Documentation: no limitations. Information obtained by: patient and old records reviewed. HPI Narrative: This is a 35-year-old male patient with a past medical history significant for insulin-dependent diabetes, who is presenting for evaluation of a right foot injury. The patient was involved in a sports game and went to kick a ball, missed and struck the ground instead. He reports that he has been able to hobble but is very painful to try to bear weight. He crawled to his bed last night and mostly just stayed there, using ice and heat for management of pain. He has not taken any medications for management of pain at this time. The patient reports that he has pain at the top of his foot towards the medial aspect. No numbness, tingling, or weakness of the toes, no significant tenderness in the ankle, and he did not injure any other part of his body during this event. Related Data Home Medications Medication Instructions Recorded Confirmed lancets 28 gauge (FreeStyle #300 multiple units 03/13/19 05/30/25 Lancets) blood-glucose meter (Blood Glucose #1 ea 09/17/19 05/30/25 Monitoring kit) pen needle, diabetic 32 gauge x #100 ea 01/04/22 05/30/2512/13 trazodone 300 mg tablet See Rx Instructions .Route 01/01/24 05/30/25 .COMPLEX #180 tabs lisinopril 10 mg tablet 10 mg PO DAILY #90 tabs 06/03/24 05/30/25 metformin 1,000 mg tablet 1,000 mg PO Q12 H #180 tab-caps 09/27/24 05/30/25 clotrimazole 1 % topical cream 1 applic topical BID #45 grams 12/24/24 05/30/25 insulin glargine 100 unit/mL (3 28 unit (0.28 mL) subcut BID #15 mL 12/24/24 05/30/25 mL) subcutaneous pen (Lantus Solostar U-100 Insulin) bupropion HCl 300 mg 24 hr tablet, 300 mg PO QAM #90 tabs 01/13/25 05/30/25 extended release glimepiride 4 mg tablet See Rx Instructions .Route 02/03/25 05/30/25 .COMPLEX #180 tabs nystatin 100,000 unit/gram topical 1 applic topical BID tinea pedis 04/29/25 05/30/25 powder #120 grams tirzepatide 2.5 mg/0.5 mL 2.5 mg (0.5 mL) subcut QWEEK #2 mL 04/29/25 05/30/25 subcutaneous pen injector ([place]) Previous Rx's Medication Instructions Recorded lancets 28 gauge (FreeStyle #300 multiple units 03/13/19 Lancets) pen needle, diabetic 32 gauge x #100 ea 01/04/2212/13 trazodone 300 mg tablet See Rx Instructions .Route 01/01/24 .COMPLEX #180 tabs lisinopril 10 mg tablet 10 mg PO DAILY #90 tabs 06/03/24 metformin 1,000 mg tablet 1,000 mg PO Q12 H #180 tab-caps 09/27/24 clotrimazole 1 % topical cream 1 applic topical BID #45 grams 12/24/24 insulin glargine 100 unit/mL (3 28 unit (0.28 mL) subcut BID #15 mL 12/24/24 mL) subcutaneous pen (Lantus Solostar U-100 Insulin) bupropion HCl 300 mg 24 hr tablet, 300 mg PO QAM #90 tabs 01/13/25 extended release glimepiride 4 mg tablet See Rx Instructions .Route 02/03/25 .COMPLEX #180 tabs nystatin 100,000 unit/gram topical 1 applic topical BID tinea pedis 04/29/25 powder #120 grams tirzepatide 2.5 mg/0.5 mL 2.5 mg (0.5 mL) subcut QWEEK #2 mL 04/29/25 subcutaneous pen injector (Mounjaro) Allergies Allergy/AdvReac Type Severity Reaction Status Date / Time house dust Allergy Intermediate congestion Verified 05/30/25 07:26 imiquimod Allergy Intermediate Topical Verified 05/30/25 07:26 Irritation tree and shrub pollen Allergy Intermediate congestion Verified 05/30/25 07:26 tramadol AdvReac Unknown Nausea Verified 05/30/25 07:26 oxycodone AdvReac dizziness Verified 05/30/25 07:26 General Stated Complaint: Orthopedic PIOTR: 4 Exam Narrative Exam Narrative: Gen: Awake and alert, in no apparent distress HEENT: Non-icteric sclera Neck: Supple Lungs: No apparent respiratory distress, normal respiratory effort. CV: Appears well perfused Abdomen: Non-distended MSK: Moves 4 extremities without apparent limitation in ROM, the affected right knee has no tenderness to palpation, joint effusion, or tenderness/deformity overlying the proximal fibula. There is no reproduction of pain or laxity with stressing of the syndesmosis, right ankle without tenderness over the medial or lateral malleoli, calcaneal tendon without defect, tenderness is noted to palpation overlying the dorsal aspect of the right foot towards the medial side, with associated soft tissue swelling. He has strong DP pulses of the affected right foot, preserved sensation in the toes and the ability to range the toes without difficulty. He does not have any significant discomfort over the lateral midfoot, nor the sole of the foot. Skin: Visualized skin without rashes, cyanosis. Neuro: Antalgic gait, no obvious focal deficits or facial asymmetry. Speaks in full, clear sentences. Psych: Appropriate for situation. Course Vital Signs Vital signs: Vital Signs Temperature 36.5 C 05/30/25 07:23 Pulse 99 H 05/30/25 07:23 Respiratory Rate 18 05/30/25 07:23 Blood Pressure 133/91 H 05/30/25 07:23 Pulse Oximetry 99 05/30/25 07:23 Temperature 36.5 C 05/30/25 07:23 Temperature Source Tympanic 05/30/25 07:23 Pulse 99 H 05/30/25 07:23 Respiratory Rate 18 05/30/25 07:23 Blood Pressure 133/91 H 05/30/25 07:23 Pulse Oximetry 99 05/30/25 07:23 Medical Decision Making This is a 35-year-old male patient presenting for evaluation of a right foot injury. Differential includes but is not limited to fracture, dislocation, contusion, sprain/strain. Reassuringly there is no evidence of neurovascular injury, and this is an isolated complaint with no associated injury to the head, neck or back, knee, or ankle. We will provide the patient with a dose of ibuprofen and obtain an x-ray of the affected right foot. - I reviewed the patient's x-ray imaging, as well as the radiology report. There is no evidence of fracture or other osseous abnormality. The patient's exam is most concerning for a foot sprain. He was placed in a walking boot and was able to bear weight after this intervention. I counseled him on conservative pain medication management and ice and elevation for swelling. At this time, the patient has had a full medical evaluation and is safe for discharge to home. They are hemodynamically stable, ambulatory, and tolerating PO. They are understanding of the follow-up plan and return precautions. They left our facility without incident. Merna Gomes MD [facility] All Active Problems (Updated 05/30/25 @ 08:31 by Merna Gomes MD) Right foot sprain (Acute) SARS-CoV-2 positive (Acute ~04/25/22) Blood glucose elevated (Acute) Noting am FBG 240 (vs usual 130) x ~ weeks.. Acanthosis nigricans due to type 2 diabetes mellitus (Acute) Tinea pedis of both feet (Acute) Plantar fasciitis, bilateral (Acute) Abscess of left thigh (Acute) Depression (Chronic) Tendonitis of left rotator cuff (Acute) Biceps tendinitis of left shoulder (Acute) Anxiety (Chronic) Elevated blood pressure reading without diagnosis of hypertension (Acute) Decreased hearing of left ear (Acute) Insomnia (Chronic) Diabetes mellitus (Chronic 07/31/06) Medical History Kidney stones Surgical History H/O circumcision [place] teeth extracted 04/20/15 Dr Cruz Family History Mother Diabetes Social History (Updated 12/24/24 @ 15:03 by Danita Davis LPN) Smoking/Tobacco Use Status: Current-Occasional Tobacco Type: cigarettes Tobacco: How many years used: 2 Smoking risk assessment performed?: Yes Alcohol Intake: current Alcohol Intake frequency: a few times a month Drug use: Binges Substance use type: does not use Adopted: Yes Housing: apartment Communication Needs: None 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[employer] Current gender identity: male What type of physical activity do you participate in: walking and bicycling Duration: 30-45 minutes/day Frequency: 5-6 times per week Seatbelt use: always Drive intox or ride w/intox hi low truck driver: No Do you feel safe at home: Yes Do you feel safe in your relationship?: Yes
[2025-05-30] MEDS: Ibuprofen 600 MG TAB PO (07:38)
--- NOTE | 2025-05-30 08:20 | DI.RAD_ITS ---
Exam(s) XR FOOT RT COMPLETE EXAM: XR FOOT RT COMPLETE CLINICAL HISTORY: kicked the ground, top of foot pain. TECHNIQUE: 2D digital imaging was performed. COMPARISON: No exams were available for comparison FINDINGS: 3 views No evidence of fracture or diastasis of the Lisfranc joint. Great toe metatarsophalangeal joint appears unremarkable as do the other articulations foot. Small inferior calcaneal spur is noted. No radiopaque foreign bodies. No gas in the soft tissues. IMPRESSION: No acute osseous findings in the foot. DATA REPOSITORY: RADIATION DOSE DELIVERED:
[2025-05-30 08:43] VITALS: BP 157/82; PULSE 99; RESP 17; O2SAT 99
== END 2025-05-30 08:44 | disposition home or self-care (01) ==
PROVIDERS: Emergency Provider Emergency Medicine; PCP Family Medicine
DX: S93.601A Unspecified sprain of right foot, initial encounter (principal); W22.8XXA Striking against or struck by other objects, initial encounter
CPT/HCPCS: 29515; 99283; 73630